=== PATIENT | male | born 1945 | race Caucasian/White ===

== ENCOUNTER 2018-11-07 09:43 | Inpatient (IN) ==
[2018-11-07] MEDS ORDERED: SODIUM CHLORIDE 0.9% 1000ML 1,000 ML IV ONE ×2 (09:56→10:52)
[2018-11-07] MEDS ORDERED: IBUPROFEN 800 MG TAB PO STA (10:02)
[2018-11-07 10:09] LABS: Hemoglobin 13.9 g/dL (14.0-18.0); Immature Granulocytes # (auto) 0.04 K/uL (0.00-0.02); Immature Granulocytes % (auto) 0.4 %; Lymphocytes % (auto) 10.6 %; Mean Corpuscular Hemoglobin 31.8 pg (25-34); Mean Corpuscular Hgb Conc 34.8 g/dL (32-36); Mean Corpuscular Volume 91.5 fL (80-100); Mean Platelet Volume 10.4 fL (7.4-10.4); Monocytes # (auto) 0.73 K/uL (0.11-0.59); Monocytes % (auto) 6.4 %; Neutrophils # (auto) 9.35 K/uL (1.4-6.5); Neutrophils % (auto) 82.6 %; Platelet Count 284 K/uL (130-400); RDW Coefficient of Variation 13.7 % (11.5-14.5); RDW Standard Deviation 45.4 fL (36.4-46.3); Red Blood Count 4.37 M/uL (4.7-6.1); White Blood Count 11.32 K/uL (4.8-10.8)
[2018-11-07 10:16] LABS: INR 1.1 (0.9-1.1); Partial Thromboplastin Ratio 0.9; Partial Thromboplastin Time 24.5 Seconds (21.0-31.0); Prothrombin Time 10.8 Seconds (9.0-12.0)
--- NOTE | 2018-11-07 10:17 | Emergency Department Note ---
Entered by Tianna Benavides acting as a scribe for Patricio Toledo DO History of Present Illness General Chief complaint: Hip Pain Time Seen by Provider: 11/07/18 09:48 Source: patient and family Limitations: no limitations History of Present Illness Provider complaint: Hip pain Onset (ago): day(s) 5 Location: hip Severity: severe Pain Consistency: + constant Quality: + constant Associated symptoms: + fever/chills and + other (Positive: right hip pain, shakiness, frequency urinating, unable to control bowel movement. Negative: rash, back pain); no nausea/vomiting The patient is a 73 year old male with past medical history of DM, UTI, HTN, kidney stones, who presents to the ED with complaints of constant severe right hip pain that started 5 days ago. The patient reports he woke up this morning shaking and had chills and fever. He notes his pain was achy on Thursday but progressively worsened. 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 She notes they called the doctor on Thursday and did an x-ray that came back normal. The states the patient was given prednisone and has been taking it along with Tylenol. She reports the patient has been urinating more frequently recently and is unable to control his bowel movements. The patient denies nausea, vomiting, rash, or back pain. Home Medications Home Medications Medication Instructions Recorded Confirmed Type cyanocobalamin (vitamin B-12) 1,000 mcg PO DAILY #0 tab 03/20/14 11/07/18 History [Vitamin B-12] docusate sodium [Colace] 100 mg PO BID #0 cap 03/20/14 11/07/18 History glipizide 10 mg PO BID #180 03/20/14 11/07/18 History acetaminophen [Tylenol] 325 mg PO Q6H PRN 11/07/18 11/07/18 History aspirin [Aspirin Low Dose] 81 mg PO DAILY 11/07/18 11/07/18 History lisinopril 20 mg PO DAILY 11/07/18 11/07/18 History metformin 1,000 mg PO BIDM 11/07/18 11/07/18 History metformin 500 mg PO 1200 11/07/18 11/07/18 History prednisone 20 mg PO UD 11/07/18 11/07/18 History Allergies Allergy/AdvReac Type Severity Reaction Status Date / Time No Known Allergies Allergy Unverified 11/07/18 10:25 Past Med/Surg History Medical History NPDR (nonproliferative diabetic retinopathy) (Chronic) Diabetes mellitus, type II (Chronic) Kidney stones (Chronic) Hypertension (Chronic) B12 deficiency (Chronic) Urinary tract infection (Resolved) Surgical History History of lithotripsy (Chronic) Family History Father Coronary heart disease, Onset Age: 74 Mother Dementia CHF (congestive heart failure) Social History Preferred Language: Serbian Communication Ability: Effective Insurance And Benefits Clerk Required: No Beliefs That Will Affect Care: None Current Living Situation: Spouse Other Information That Helps Us Care for You: No Feels Safe at Home: Yes Safety Concerns: Feels Safe At This Time Smoking Status: Former smoker Tobacco Type: cigarettes ; Do You Dip or Chew Tobacco: No ; Smoking End Date: during college ; Second Hand Exposure: No ; Tobacco Cessation Education Requested by Patient: No Hx Alcohol Use: Yes Alcohol type: hard liquor Alcohol Intake Frequency: Daily Alcohol Intake Frequency Comment: 2-4 oz bourbon daily Hx Substance Use: No Review of Systems See HPI for pertinent positives & negatives. and A total of 10 systems reviewed and were otherwise negative Physical Exam Vital Signs Vital Signs - 24 hr 11/07/18 09:53 11/07/18 09:54 11/07/18 09:55 Temperature 39.6 C H Temperature Source Oral Sepsis Recent Fever Within 48 Hours Yes Sepsis New/Unexplained Change in Mental Status No Sepsis Action Taken by Nursing MD Previously Notified Pulse Rate 128 H 135 H 132 H Pulse Rate from SpO2 Sensor 129 H 134 H Pulse Rhythm Regular Pulse Strength Normal Respiratory Rate 22 27 H 29 H Respiratory Effort / Characteristics Non-Labored Spontaneous Respiratory Depth Normal Respiratory Pattern Tachypnea Blood Pressure 141/97 H 167/91 H 141/97 H Blood Pressure Mean 111 116 111 Blood Pressure Position Lying Pulse Oximetry 93 94 93 Oxygen Delivery Method Room Air Room Air Room Air Oxygen Flow Rate 11/07/18 09:56 11/07/18 10:00 11/07/18 10:15 Temperature Temperature Source Sepsis Recent Fever Within 48 Hours Sepsis New/Unexplained Change in Mental Status Sepsis Action Taken by Nursing Pulse Rate 132 H 131 H Pulse Rate from SpO2 Sensor 131 H 136 H Pulse Rhythm Pulse Strength Respiratory Rate 23 23 Respiratory Effort / Characteristics Respiratory Depth Respiratory Pattern Blood Pressure Blood Pressure Mean Blood Pressure Position Pulse Oximetry 93 95 92 Oxygen Delivery Method Room Air Room Air Room Air Oxygen Flow Rate 11/07/18 10:30 11/07/18 10:56 11/07/18 10:58 Temperature Temperature Source Sepsis Recent Fever Within 48 Hours Sepsis New/Unexplained Change in Mental Status Sepsis Action Taken by Nursing Pulse Rate 131 H 134 H 134 H Pulse Rate from SpO2 Sensor 133 H 135 H 133 H Pulse Rhythm Pulse Strength Respiratory Rate 20 24 27 H Respiratory Effort / Characteristics Respiratory Depth Respiratory Pattern Blood Pressure Blood Pressure Mean Blood Pressure Position Pulse Oximetry 91 92 93 Oxygen Delivery Method Room Air Room Air Room Air Oxygen Flow Rate 11/07/18 11:00 11/07/18 11:09 11/07/18 11:15 Temperature 39.3 C H Temperature Source Oral Sepsis Recent Fever Within 48 Hours Sepsis New/Unexplained Change in Mental Status Sepsis Action Taken by Nursing Pulse Rate 135 H 132 H 128 H Pulse Rate from SpO2 Sensor 137 H 133 H 128 H Pulse Rhythm Pulse Strength Respiratory Rate 25 H 27 H 29 H Respiratory Effort / Characteristics Respiratory Depth Respiratory Pattern Blood Pressure 148/73 H 152/79 H Blood Pressure Mean 98 103 Blood Pressure Position Pulse Oximetry 95 91 90 Oxygen Delivery Method Room Air Room Air Room Air Oxygen Flow Rate 11/07/18 11:30 11/07/18 11:45 11/07/18 12:00 Temperature Temperature Source Sepsis Recent Fever Within 48 Hours Sepsis New/Unexplained Change in Mental Status Sepsis Action Taken by Nursing Pulse Rate 124 H 126 H 125 H Pulse Rate from SpO2 Sensor 124 H 127 H 110 H Pulse Rhythm Pulse Strength Respiratory Rate 27 H 31 H 23 Respiratory Effort / Characteristics Respiratory Depth Respiratory Pattern Blood Pressure 127/63 135/78 120/77 Blood Pressure Mean 84 97 91 Blood Pressure Position Pulse Oximetry 93 91 93 Oxygen Delivery Method Nasal Cannula Nasal Cannula Nasal Cannula Oxygen Flow Rate 2 2 2 11/07/18 12:15 11/07/18 12:30 11/07/18 12:45 Temperature 38.9 C H Temperature Source Oral Sepsis Recent Fever Within 48 Hours Sepsis New/Unexplained Change in Mental Status Sepsis Action Taken by Nursing Pulse Rate 122 H 121 H Pulse Rate from SpO2 Sensor 122 H 122 H Pulse Rhythm Pulse Strength Respiratory Rate 20 16 Respiratory Effort / Characteristics Spontaneous Short of Breath SOB on Exertion Respiratory Depth Normal Respiratory Pattern Regular Tachypnea Blood Pressure 119/70 108/69 Blood Pressure Mean 86 82 Blood Pressure Position Pulse Oximetry 92 90 Oxygen Delivery Method Nasal Cannula Nasal Cannula Oxygen Flow Rate 2 2 11/07/18 13:00 11/07/18 13:15 11/07/18 13:27 Temperature Temperature Source Sepsis Recent Fever Within 48 Hours Sepsis New/Unexplained Change in Mental Status Sepsis Action Taken by Nursing Pulse Rate 119 H 116 H 120 H Pulse Rate from SpO2 Sensor 119 H 116 H 119 H Pulse Rhythm Pulse Strength Respiratory Rate 31 H 21 19 Respiratory Effort / Characteristics Respiratory Depth Respiratory Pattern Blood Pressure 110/53 L 128/75 106/68 Blood Pressure Mean 72 92 80 Blood Pressure Position Pulse Oximetry 95 90 93 Oxygen Delivery Method Oxygen Flow Rate 11/07/18 13:37 Temperature 37.6 C H Temperature Source Oral Sepsis Recent Fever Within 48 Hours Sepsis New/Unexplained Change in Mental Status Sepsis Action Taken by Nursing Pulse Rate Pulse Rate from SpO2 Sensor Pulse Rhythm Pulse Strength Respiratory Rate Respiratory Effort / Characteristics Respiratory Depth Respiratory Pattern Blood Pressure Blood Pressure Mean Blood Pressure Position Pulse Oximetry Oxygen Delivery Method Oxygen Flow Rate GENERAL: The patient is awake and alert. He is somewhat anxious appearing. He is currently showing signs of rigors. EYES: The conjunctivae are clear. The pupils are round and reactive. EARS, NOSE, MOUTH AND THROAT: The nose is without any evidence of any deformity. Mucous membranes are moist tongue is midline NECK: The neck is nontender and supple. RESPIRATORY: Tachypnea was noted. There was no conversational dyspnea. Diminished breath sounds are noted throughout. CARDIOVASCULAR: Tachycardic rate with regular rhythm was noted. There is no definite murmur. GASTROINTESTINAL: The abdomen was soft and mildly distended. There was lower abdominal tenderness to palpation but no guarding or rigidity. BACK: No midline tenderness or or step-off noted range of motion in flexion extension as well as rotation no signs of muscle spasm noted MUSCULOSKELETAL/EXTREMITIES: There is no deformity in either lower extremity. There is no warmth or erythema over the right hip her right buttocks. There was significant pain with range of motion testing of the right hip. SKIN: There is no obvious evidence of any rash. Skin is warm and dry. Pedal edema was noted bilaterally. NEUROLOGIC: Patient is awake alert and oriented x3. Course 0948: The patient was evaluated in room A4B. A complete history and physical exam was performed. 1135: Upon reevaluation, the patient is resting comfortably. I discussed laboratory and radiographic results with him and the family. The patient verbalized agreement of the treatment plan. The patient will be evaluated for further management and care. 1137: I discussed the patient's case with Ladan Parikh PA-C . [facility]. Consultations Consultation #1: I discussed the patient's case with Ladan Parikh PA-C . The patient will be evaluated by Dr. Rosales, [facility], for further management. Time: 11:37 Administered Medications Ioversol (Optiray 320 100ml) 94 ml IV ONCE PRN PRN Reason: Interaction Checking Stop: 11/11/18 11:11 Last Admin: 11/07/18 11:13 Dose: 94 ml Documented by: [id number] Discontinued Medications Sodium Chloride (Nss 1000ml) 1,000 mls @ 999 mls/hr IV .Q1H1M ONE Stop: 11/07/18 10:56 Last Infusion: 11/07/18 11:07 Dose: 0 mls/hr Documented by: [id number] Admin: 11/07/18 10:10 Dose: 999 mls/hr Documented by: [id number] Ceftriaxone Sodium (Rocephin) 2,000 mg in 70 mls @ 140 mls/hr IV NOW STA Stop: 11/07/18 11:19 Last Infusion: 11/07/18 13:13 Dose: 0 mls/hr Documented by: [id number] Admin: 11/07/18 11:06 Dose: 140 mls/hr Documented by: [id number] Sodium Chloride (Nss 1000ml) 1,000 mls @ 999 mls/hr IV .Q1H1M ONE Stop: 11/07/18 11:52 Last Infusion: 11/07/18 13:13 Dose: 0 mls/hr Documented by: [id number] Admin: 11/07/18 11:07 Dose: 999 mls/hr Documented by: [id number] Daptomycin 600 mg/ Syringe 12 mls @ 6 mls/min IV NOW ONE; Protocol Stop: 11/07/18 13:11 Last Admin: 11/07/18 13:28 Dose: 6 mls/min Documented by: [id number] Ibuprofen (Motrin) 800 mg PO NOW STA Stop: 11/07/18 10:03 Last Admin: 11/07/18 11:07 Dose: 800 mg Documented by: [id number] Medical Decision Making Differential Diagnosis Differential diagnosis: Etiologies such as viral syndrome, otitis, pharyngitis, pneumonia, influenza, meningitis, urinary tract infection, sepsis, bacteremia, as well as others were entertained. Medical Records Attestation: I reviewed the patient's medical records. Home Medications Current Medication List: was personally reviewed by me Laboratory Data Attestation: I reviewed the patient's lab results. Result diagrams: 11/07/18 09:48 11/07/18 09:48 Lab Results 11/07/18 11/07/18 11/07/18 Range/Units 09:48 09:48 09:48 WBC 11.32 H (4.8-10.8) K/uL RBC 4.37 L (4.7-6.1) M/uL Hgb 13.9 L (14.0-18.0) g/dL POC Hgb (14.0-18.0) g/dl Hct 40.0 L (42-52) % POC Hct (42-52) % MCV 91.5 (80-100) fL MCH 31.8 (25-34) pg MCHC 34.8 (32-36) g/dL RDW Std Deviation 45.4 (36.4-46.3) fL RDW Coeff of Edilia 13.7 (11.5-14.5) % Plt Count 284 (130-400) K/uL MPV 10.4 (7.4-10.4) fL Immature Gran % (Auto) 0.4 % Neut % (Auto) 82.6 % Lymph % (Auto) 10.6 % [place] % (Auto) 6.4 % Eos % (Auto) 0.0 % Baso % (Auto) 0.0 % Immature Gran # (Auto) 0.04 H (0.00-0.02) K/uL Neut # (Auto) 9.35 H (1.4-6.5) K/uL Lymph # (Auto) 1.20 (1.2-3.4) K/uL [place] # (Auto) 0.73 H (0.11-0.59) K/uL Eos # (Auto) 0.00 (0-0.5) K/uL Baso # (Auto) 0.00 (0-0.2) K/uL ESR (0-14) mm/hr PT 10.8 (9.0-12.0) Seconds INR 1.1 (0.9-1.1) APTT 24.5 (21.0-31.0) Seconds PTT Ratio 0.9 POC Sodium (135-144) mEq/L Sodium 133 L (136-145) mmol/L POC Potassium (3.3-5.0) mEq/L Potassium 4.0 (3.5-5.1) mmol/L POC Chloride (101-112) mEq/L Chloride 101 (98-107) mmol/L Carbon Dioxide 20 L (21-32) mmol/L POC Total CO2 (24-31) mEq/l Anion Gap 12.0 H (3-11) POC Anion Gap (16-25) mmol/L POC BUN (7-18) mg/dl BUN 28 H (7-18) mg/dl Creatinine 1.49 H (0.6-1.4) mg/dl POC Creatinine (0.6-1.3) mg/dl Est Cr Clr Drug Dosing 61.4 ml/min Est GFR ( Amer) 53.2 Est GFR (Non-Af Amer) 45.9 BUN/Creatinine Ratio 18.6 (10-20) Glucose 322 H* (70-99) mg/dl POC Glucose (other) (70-99) mg/dl POC Lactic Acid Hossein (0.90-1.70) mmol/L Lactate (0.4-2.0) mmol/L Calcium 9.8 (8.5-10.1) mg/dl POC Ioniz Calcium Shikha (1.12-1.32) mmol/l Magnesium 1.7 L (1.8-2.4) mg/dl Total Bilirubin 1.1 H (0.2-1) mg/dl AST 19 (15-37) U/L ALT 37 (12-78) U/L Alkaline Phosphatase 69 (45-117) U/L Troponin I < 0.015 (0-0.045) ng/ml C-Reactive Protein 8.46 H (0-0.29) mg/dl Total Protein 9.7 H (6.4-8.2) gm/dl Albumin 3.2 L (3.4-5.0) gm/dl Globulin 6.5 H (2.5-4.0) gm/dl Albumin/Globulin Ratio 0.5 L (0.9-2) Lipase 116 (73-393) U/L Beta-Hydroxybutyric Acd 4.05 H (0.2-2.81) mg/dl Procalcitonin (0-0.5) ng/ml Urine Color Urine Appearance (Clear) Urine pH (4.5-7.5) Ur Specific Burr (1.000-1.030) Urine Protein (Negative) Urine Glucose (UA) (Negative) Urine Ketones (Negative) Urine Blood (Negative) Urine Nitrite (Negative) Urine Bilirubin (Negative) Urine Urobilinogen (Negative) Ur Leukocyte Esterase (Negative) Urine WBC (Auto) (0-5) /hpf Urine RBC (Auto) (0-4) /hpf U Hyaline Cast (Auto) (0-5) /lpf U Epithel Cells (Auto) (0-5) /lpf Urine Bacteria (Auto) (Negative) Lyme Disease IgG Ab (Negative) Lyme Disease IgM Ab (Negative) 11/07/18 11/07/18 11/07/18 Range/Units 09:48 09:48 10:06 WBC (4.8-10.8) K/uL RBC (4.7-6.1) M/uL Hgb (14.0-18.0) g/dL POC Hgb (14.0-18.0) g/dl Hct (42-52) % POC Hct (42-52) % MCV (80-100) fL MCH (25-34) pg MCHC (32-36) g/dL RDW Std Deviation (36.4-46.3) fL RDW Coeff of Edilia (11.5-14.5) % Plt Count (130-400) K/uL MPV (7.4-10.4) fL Immature Gran % (Auto) % Neut % (Auto) % Lymph % (Auto) % [place] % (Auto) % Eos % (Auto) % Baso % (Auto) % Immature Gran # (Auto) (0.00-0.02) K/uL Neut # (Auto) (1.4-6.5) K/uL Lymph # (Auto) (1.2-3.4) K/uL [place] # (Auto) (0.11-0.59) K/uL Eos # (Auto) (0-0.5) K/uL Baso # (Auto) (0-0.2) K/uL ESR > 90 H (0-14) mm/hr PT (9.0-12.0) Seconds INR (0.9-1.1) APTT (21.0-31.0) Seconds PTT Ratio POC Sodium (135-144) mEq/L Sodium (136-145) mmol/L POC Potassium (3.3-5.0) mEq/L Potassium (3.5-5.1) mmol/L POC Chloride (101-112) mEq/L Chloride (98-107) mmol/L Carbon Dioxide (21-32) mmol/L POC Total CO2 (24-31) mEq/l Anion Gap (3-11) POC Anion Gap (16-25) mmol/L POC BUN (7-18) mg/dl BUN (7-18) mg/dl Creatinine (0.6-1.4) mg/dl POC Creatinine (0.6-1.3) mg/dl Est Cr Clr Drug Dosing ml/min Est GFR ( Amer) Est GFR (Non-Af Amer) BUN/Creatinine Ratio (10-20) Glucose (70-99) mg/dl POC Glucose (other) (70-99) mg/dl POC Lactic Acid Hossein 3.54 H (0.90-1.70) mmol/L Lactate (0.4-2.0) mmol/L Calcium (8.5-10.1) mg/dl POC Ioniz Calcium Shikha (1.12-1.32) mmol/l Magnesium (1.8-2.4) mg/dl Total Bilirubin (0.2-1) mg/dl AST (15-37) U/L ALT (12-78) U/L Alkaline Phosphatase (45-117) U/L Troponin I (0-0.045) ng/ml C-Reactive Protein (0-0.29) mg/dl Total Protein (6.4-8.2) gm/dl Albumin (3.4-5.0) gm/dl Globulin (2.5-4.0) gm/dl Albumin/Globulin Ratio (0.9-2) Lipase (73-393) U/L Beta-Hydroxybutyric Acd (0.2-2.81) mg/dl Procalcitonin 0.34 (0-0.5) ng/ml Urine Color Urine Appearance (Clear) Urine pH (4.5-7.5) Ur Specific Burr (1.000-1.030) Urine Protein (Negative) Urine Glucose (UA) (Negative) Urine Ketones (Negative) Urine Blood (Negative) Urine Nitrite (Negative) Urine Bilirubin (Negative) Urine Urobilinogen (Negative) Ur Leukocyte Esterase (Negative) Urine WBC (Auto) (0-5) /hpf Urine RBC (Auto) (0-4) /hpf U Hyaline Cast (Auto) (0-5) /lpf U Epithel Cells (Auto) (0-5) /lpf Urine Bacteria (Auto) (Negative) Lyme Disease IgG Ab Negative (Negative) Lyme Disease IgM Ab Negative (Negative) 11/07/18 11/07/18 11/07/18 Range/Units 10:12 10:30 13:06 WBC (4.8-10.8) K/uL RBC (4.7-6.1) M/uL Hgb (14.0-18.0) g/dL POC Hgb 13.3 L (14.0-18.0) g/dl Hct (42-52) % POC Hct 39 L (42-52) % MCV (80-100) fL MCH (25-34) pg MCHC (32-36) g/dL RDW Std Deviation (36.4-46.3) fL RDW Coeff of Edilia (11.5-14.5) % Plt Count (130-400) K/uL MPV (7.4-10.4) fL Immature Gran % (Auto) % Neut % (Auto) % Lymph % (Auto) % [place] % (Auto) % Eos % (Auto) % Baso % (Auto) % Immature Gran # (Auto) (0.00-0.02) K/uL Neut # (Auto) (1.4-6.5) K/uL Lymph # (Auto) (1.2-3.4) K/uL [place] # (Auto) (0.11-0.59) K/uL Eos # (Auto) (0-0.5) K/uL Baso # (Auto) (0-0.2) K/uL ESR (0-14) mm/hr PT (9.0-12.0) Seconds INR (0.9-1.1) APTT (21.0-31.0) Seconds PTT Ratio POC Sodium 137 (135-144) mEq/L Sodium (136-145) mmol/L POC Potassium 4.2 (3.3-5.0) mEq/L Potassium (3.5-5.1) mmol/L POC Chloride 102 (101-112) mEq/L Chloride (98-107) mmol/L Carbon Dioxide (21-32) mmol/L POC Total CO2 20 L (24-31) mEq/l Anion Gap (3-11) POC Anion Gap 20.0 (16-25) mmol/L POC BUN 25 H (7-18) mg/dl BUN (7-18) mg/dl Creatinine (0.6-1.4) mg/dl POC Creatinine 1.0 (0.6-1.3) mg/dl Est Cr Clr Drug Dosing ml/min Est GFR ( Amer) Est GFR (Non-Af Amer) BUN/Creatinine Ratio (10-20) Glucose (70-99) mg/dl POC Glucose (other) 317 H (70-99) mg/dl POC Lactic Acid Hossein (0.90-1.70) mmol/L Lactate 1.9 (0.4-2.0) mmol/L Calcium (8.5-10.1) mg/dl POC Ioniz Calcium Shikha 1.21 (1.12-1.32) mmol/l Magnesium (1.8-2.4) mg/dl Total Bilirubin (0.2-1) mg/dl AST (15-37) U/L ALT (12-78) U/L Alkaline Phosphatase (45-117) U/L Troponin I (0-0.045) ng/ml C-Reactive Protein (0-0.29) mg/dl Total Protein (6.4-8.2) gm/dl Albumin (3.4-5.0) gm/dl Globulin (2.5-4.0) gm/dl Albumin/Globulin Ratio (0.9-2) Lipase (73-393) U/L Beta-Hydroxybutyric Acd (0.2-2.81) mg/dl Procalcitonin (0-0.5) ng/ml Urine Color Yellow Urine Appearance Clear (Clear) Urine pH 5.0 (4.5-7.5) Ur Specific Burr 1.030 (1.000-1.030) Urine Protein 1+ H (Negative) Urine Glucose (UA) 3+ H (Negative) Urine Ketones Trace H (Negative) Urine Blood 1+ H (Negative) Urine Nitrite Negative (Negative) Urine Bilirubin Negative (Negative) Urine Urobilinogen Negative (Negative) Ur Leukocyte Esterase Negative (Negative) Urine WBC (Auto) 1-5 (0-5) /hpf Urine RBC (Auto) 0-4 (0-4) /hpf U Hyaline Cast (Auto) 0 (0-5) /lpf U Epithel Cells (Auto) 0-5 (0-5) /lpf Urine Bacteria (Auto) Negative (Negative) Lyme Disease IgG Ab (Negative) Lyme Disease IgM Ab (Negative) Imaging Data Radiologist's Impression: Radiology results as stated below per my review and the radiologist's interpretation: CT abd pelvis IV con only CLINICAL HISTORY: 73 years-old Male presenting with fever, right leg pain, right hip pain, generalized abdominal pain. TECHNIQUE: Multidetector CT of the abdomen and pelvis was performed after the ad ministration of intravenous contrast. IV contrast: 94 mL of Optiray 320. One or more dose lowering techniques were used consistent with the principles of ALARA (as low as reasonably achievable), including automatic exposure control, mA or kV adjustment to individual patient size, and/or use of iterative reconstruction. COMPARISON: 03/17/2014. CT DOSE (mGy.cm): The estimated cumulative dose is 1625.49. 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 Lung bases: Mild multichamber enlargement of the heart. Coronary artery and aortic valve calcification. No pericardial or pleural effusion. Extensive b andlike opacities in the lungs with a dependent predominance likely atelectasis. Liver: Normal morphology. No liver lesion. Patent hepatic vasculature. Biliary: No intrahepatic or extrahepatic biliary ductal dilatation. Gallbladder contains gallstones. Pancreas: Mild parenchymal atrophy. Spleen: Normal. Adrenal glands: Normal. Kidneys and ureters: Moderate bilateral perinephric fat stranding. Normal. No hydronephrosis. Bladder: Normal. Pelvic organs: Prostate enlargement likely secondary to benign prostatic hyperplasia. Bowel: Normal appendix. No bowel obstruction. Peritoneal cavity: No free fluid or intraperitoneal gas. Lymph nodes: Multiple prominent retroperitoneal and pelvic lymph nodes, nonspecific and largely subcentimeter in short axis though few left. Aortic lymph nodes measure up to 11 mm. Vasculature: Atherosclerosis of the normal caliber abdominal aorta. IVC patent. Abdominal wall: Fat-containing bilateral inguinal hernias. Gynecomastia also noted. Musculoskeletal: Degenerative changes of the spine. Several old rib fractures noted. Severe compression fracture of T11. Moderate compression fracture of L4. IMPRESSION: 1. No acute intra-abdominal pathology. No CT explanation for the patient's fever within the abdomen or pelvis. 2. Severe compression fracture of T11 new from prior. Moderate compression fracture of L4 as on prior. 3. Cholelithiasis. Electronically signed by: Brandon Nettles M.D. 11/07/2018 11:[address] femur RT w con CLINICAL HISTORY: 73 years-old Male presenting with fever, right hip and right leg pain. TECHNIQUE: Multidetector CT of the right femur was performed after the administration of intravenous contrast. IV contrast: 94 mL of Optiray 320. One or more dose lowering techniques were used consistent with the principles of ALARA (as low as reasonably achievable), including automatic exposure control, mA or kV adjustment to individual patient size, and/or use of iterative rec onstruction. COMPARISON: Plain radiograph from 11/05/2018. CT DOSE (mGy.cm): The estimated cumulative dose is 1625.49 mGy.cm. 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 Right hip joint and right knee joint congruent. No acute fracture. No malalignment. Mild osteophytosis at the hip joint may be present. Mild multicompartment osteophytosis at the knee joint. Subchondral cystic change noted at the superior acetabulum. The bony pelvis is intact within the visualized portion. Right sacroiliac joint congruent. Trace knee joint effusion.. Musculature of the right thigh is normal. No intramuscular hematoma. No collection. Atherosclerosis. Grossly patent vasculature. A right hydrocele may be present versus spermatocele. Remaining intrapelvic contents demonstrate an enlarged prostate and a circumferential bladder wall thickening. Small fat- containing right inguinal hernia. IMPRESSION: 1. No evidence of acute osseous injury or acute pathology in the right thigh. 2. Mild degenerative changes of the right hip and right knee. 3. Prostatomegaly with chronic bladder outlet obstruction. 4. Suspected right hydrocele or spermatocele. Electronically signed by: Brandon Nettles M.D. 11/07/2018 11:28 AM XR chest 1V portable CLINICAL HISTORY: 73 years-old Male presenting with Sepsis. TECHNIQUE: Portable upright AP view of the chest was obtained. COMPARISON: 03/22/2014. FINDINGS: Mildly low lung volumes with prominence of the cardiac silhouette. Elevation of the right hemidiaphragm as on prior exam. Mild pulmonary vascular prominence. Chronic bandlike opacity at the right lung base. No new focal opacity. No large effusion or pneumothorax. Degenerative changes of the thoracic spine. Upper abdomen normal. IMPRESSION: 1. Low lung volumes with hypoventilatory changes and right basilar atelectasis or scarring. These are chronic findings. 2. Mild volume overload. No deisi pulmonary edema. 3. No focal infiltrate to suggest pneumonia. Electronically signed by: Brandon Nettles M.D. 11/07/2018 10:23 AM Blood Pressure Blood Pressure Findings: Elevated blood pressure Blood Pressure Disposition: elevated BP felt to be situational MDM Narrative The patient is a 73-year-old diabetic who presented to the emergency department for an evaluation. The patient was having right hip pain which he localizes over the right buttocks into the right hip. He stated that this been ongoing for some time it started to worsen over the last few days. He was seen by orthopedics and started on a steroid for the pain. The pain did not get much better but he started having shaking and fevers today. He presented to the emergency department by ambulance. He was having rigors upon arrival to the emergency department. I discussed the patient's laboratory and radiographic studies with him. He was treated with medicine for the fever as well as IV fluids. He was also started on IV antibiotics for presumed bacteremia. Michael andrew's urinalysis did not reveal a source of infection. He had significant pain with range of motion of the right hip but CT did not reveal any acute abnormality including no joint effusion. Because of the patient's findings and comorbidities I discussed his case with the on-call [facility] hospitalist group. They have agreed to evaluate the patient in the emergency department for further management disposition. Impression & Plan Fever, Hyperglycemia, Compression fx, thoracic spine, Bacteremia Discharge Plan Visit Data Chief Complaint: Hip Pain ED Provider: Patricio Toledo Discharge Problem: Fever, Hyperglycemia, Compression fx, thoracic spine, Bacteremia Patient Disposition: Being Evaluated by Hospitalist Discharge Instructions Interventions: ED Discharge Assessment Last Done: 11/07/18 13:45 Forms Stand Alone Forms: My [facility] [employer] Prescriptions Prescriptions: No Action glipizide 10 mg Tablet 10 mg PO BID Qty: 180 RF: 0 docusate sodium [Colace] 100 mg Capsule 100 mg PO BID Qty: 0 RF: 0 cyanocobalamin (vitamin B-12) [Vitamin B-12] 1,000 mcg Tablet 1,000 mcg PO DAILY Qty: 0 RF: 0 prednisone 20 mg Tablet 20 mg PO UD RF: 0 aspirin [Aspirin Low Dose] 81 mg Tablet,Delayed Release (Dr/Ec) 81 mg PO DAILY RF: 0 acetaminophen [Tylenol] 325 mg Capsule 325 mg PO Q6H PRN (Reason: Pain) RF: 0 lisinopril 20 mg tablet 20 mg PO DAILY RF: 0 metformin 1,000 mg tablet 1,000 mg PO BIDM RF: 0 metformin 1,000 mg tablet 500 mg PO 1200 RF: 0 Referrals Referrals: Brandon Dennison MD [Primary Care Provider] - Discharge Problem: Fever Qualifiers: Fever type: unspecified Qualified Code(s): R50.9 - Fever, unspecified Compression fx, thoracic spine Qualifiers: Encounter type: initial encounter Thoracic vertebra fracture level: T11 Ino lified Code(s): S22.080A - Wedge compression fracture of T11-T12 vertebra, initial encounter for closed fracture The scribe's documentation has been prepared under my direction and personally reviewed by me in its entirety. I confirm that the note above accurately reflects all work, treatment, procedures, and medical decision making performed by me.
[2018-11-07 10:24] LABS: iSTAT Hemoglobin 13.3 g/dl (14.0-18.0); iSTAT Ionized Calcium 1.21 mmol/l (1.12-1.32); iSTAT Potassium 4.2 mEq/L (3.3-5.0)
--- NOTE | 2018-11-07 10:24 | XRay Report ---
XR chest 1V portable CLINICAL HISTORY: 73 years-old Male presenting with Sepsis. TECHNIQUE: Portable upright AP view of the chest was obtained. COMPARISON: 03/22/2014. FINDINGS: Mildly low lung volumes with prominence of the cardiac silhouette. Elevation of the right hemidiaphra gm as on prior exam. Mild pulmonary vascular prominence. Chronic bandlike opacity at the right lung b ase. No new focal opacity. No large effusion or pneumothorax. Degenerative changes of the thoracic sp ine. Upper abdomen normal. IMPRESSION: 1. Low lung volumes with hypoventilatory changes and right basilar atelectasis or scarring. These ar e chronic findings. 2. Mild volume overload. No deisi pulmonary edema. 3. No focal infiltrate to suggest pneumonia. Electronically signed by: Brandon Nettles M.D. 11/07/2018 10:23 AM
[2018-11-07 10:30] LABS: Alanine Aminotransferase 37 U/L (12-78); Albumin Globulin Ratio 0.5 (0.9-2); Albumin Level 3.2 gm/dl (3.4-5.0); Alkaline Phosphatase 69 U/L (45-117); Aspartate Aminotransferase 19 U/L (15-37); BUN Creatinine Ratio 18.6 (10-20); Bilirubin,Total 1.1 mg/dl (0.2-1); Blood Urea Nitrogen 28 mg/dl (7-18); C Reactive Protein 8.46 mg/dl (0-0.29); Calcium 9.8 mg/dl (8.5-10.1); Carbon Dioxide 20 mmol/L (21-32); Chloride 101 mmol/L (98-107); Creatinine Clr Calc Pharmacy 61.4 ml/min; Est GFR (African American) 53.2; Est GFR (Non-African American) 45.9; Globulin 6.5 gm/dl (2.5-4.0); Glucose 322 mg/dl (70-99); Lipase 116 U/L (73-393); Magnesium 1.7 mg/dl (1.8-2.4); Sodium 133 mmol/L (136-145); Total Protein 9.7 gm/dl (6.4-8.2); Troponin I < 0.015 ng/ml (0-0.045)
[2018-11-07 10:50] LABS: Procalcitonin 0.34 ng/ml (0-0.5)
[2018-11-07] MEDS ORDERED: cefTRIAXone SODIUM 2,000 MG/70 ML BAG IV STA (10:50)
[2018-11-07 10:58] LABS: Appearance Urine Clear (Clear); Bacteria Urine Automated Negative (Negative); Bilirubin Urine Negative (Negative); Blood Urine 1+ (Negative); Cast Urine Automated 0 /lpf (0-5); Color Urine Yellow; Epithelial Cell Urine Auto 0-5 /lpf (0-5); Glucose Urine UA 3+ (Negative); Ketones Urine Trace (Negative); Leukocyte Esterase Urine Negative (Negative); Nitrite Urine Negative (Negative); Protein Urine 1+ (Negative); RBC Urine Automated 0-4 /hpf (0-4); Urobilinogen Urine Negative (Negative)
[2018-11-07 11:00] LABS: Beta-Hydroxybutyrate 4.05 mg/dl (0.2-2.81); Lyme Ab IgG w/WB Rflx Negative (Negative); Lyme Ab IgM w/WB Rflx Negative (Negative)
[2018-11-07] MEDS ORDERED: IOVERSOL 100ml IV PRN (11:12)
--- NOTE | 2018-11-07 11:23 | CT Scan Report ---
CT abd pelvis IV con only CLINICAL HISTORY: 73 years-old Male presenting with fever, right leg pain, right hip pain, generalize d abdominal pain. TECHNIQUE: Multidetector CT of the abdomen and pelvis was performed after the administration of intra venous contrast. IV contrast: 94 mL of Optiray 320. One or more dose lowering techniques were used co nsistent with the principles of ALARA (as low as reasonably achievable), including automatic exposure control, mA or kV adjustment to individual patient size, and/or use of iterative reconstruction. COMPARISON: 03/17/2014. CT DOSE (mGy.cm): The estimated cumulative dose is 1625.49. 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 Lung bases: Mild multichamber enlargement of the heart. Coronary artery and aortic valve calcificatio n. No pericardial or pleural effusion. Extensive bandlike opacities in the lungs with a dependent pre dominance likely atelectasis. Liver: Normal morphology. No liver lesion. Patent hepatic vasculature. Biliary: No intrahepatic or extrahepatic biliary ductal dilatation. Gallbladder contains gallstones. Pancreas: Mild parenchymal atrophy. Spleen: Normal. Adrenal glands: Normal. Kidneys and ureters: Moderate bilateral perinephric fat stranding. Normal. No hydronephrosis. Bladder: Normal. Pelvic organs: Prostate enlargement likely secondary to benign prostatic hyperplasia. Bowel: Normal appendix. No bowel obstruction. Peritoneal cavity: No free fluid or intraperitoneal gas. Lymph nodes: Multiple prominent retroperitoneal and pelvic lymph nodes, nonspecific and largely subce ntimeter in short axis though few left. Aortic lymph nodes measure up to 11 mm. Vasculature: Atherosclerosis of the normal caliber abdominal aorta. IVC patent. Abdominal wall: Fat-containing bilateral inguinal hernias. Gynecomastia also noted. Musculoskeletal: Degenerative changes of the spine. Several old rib fractures noted. Severe compressi on fracture of T11. Moderate compression fracture of L4. IMPRESSION: 1. No acute intra-abdominal pathology. No CT explanation for the patient's fever within the abdomen or pelvis. 2. Severe compression fracture of T11 new from prior. Moderate compression fracture of L4 as on prio r. 3. Cholelithiasis. Electronically signed by: Brandon Nettles M.D. 11/07/2018 11:21 AM
--- NOTE | 2018-11-07 11:29 | CT Scan Report ---
CT femur RT w con CLINICAL HISTORY: 73 years-old Male presenting with fever, right hip and right leg pain. TECHNIQUE: Multidetector CT of the right femur was performed after the administration of intravenous contrast. IV contrast: 94 mL of Optiray 320. One or more dose lowering techniques were used consisten t with the principles of ALARA (as low as reasonably achievable), including automatic exposure contro l, mA or kV adjustment to individual patient size, and/or use of iterative reconstruction. COMPARISON: Plain radiograph from 11/05/2018. CT DOSE (mGy.cm): The estimated cumulative dose is 1625.49 mGy.cm. 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 Right hip joint and right knee joint congruent. No acute fracture. No malalignment. Mild osteophytosi s at the hip joint may be present. Mild multicompartment osteophytosis at the knee joint. Subchondral cystic change noted at the superior acetabulum. The bony pelvis is intact within the visualized port ion. Right sacroiliac joint congruent. Trace knee joint effusion.. Musculature of the right thigh is normal. No intramuscular hematoma. No collection. Atherosclerosis. Grossly patent vasculature. A righ t hydrocele may be present versus spermatocele. Remaining intrapelvic contents demonstrate an enlarge d prostate and a circumferential bladder wall thickening. Small fat-containing right inguinal hernia. IMPRESSION: 1. No evidence of acute osseous injury or acute pathology in the right thigh. 2. Mild degenerative changes of the right hip and right knee. 3. Prostatomegaly with chronic bladder outlet obstruction. 4. Suspected right hydrocele or spermatocele. Electronically signed by: Brandon Nettles M.D. 11/07/2018 11:28 AM
[2018-11-07] MEDS ORDERED: MODERATE STRESS LEVEL ONE (12:55)
[2018-11-07] MEDS ORDERED: INSULIN PROTOCOL GOAL RANGE ONE (12:55)
[2018-11-07] MEDS ORDERED: LACTATED RINGER'S 1,000 ML IV SCH (13:00)
[2018-11-07] MEDS ORDERED: INSULIN REGULAR 250 UNITS in SODIUM CHLORIDE 0.9% 247.5 ML IV SCH (13:00)
[2018-11-07] MEDS ORDERED: DAPTOmycin 600 MG in SYRINGE 0 ML IV ONE (13:10)
--- NOTE | 2018-11-07 13:37 | History & Physical Report ---
Date of Service November 07, 2018 Assessment & Plan (1) Febrile illness: (2) Sepsis: (3) Lactic acidosis: (4) Metabolic acidosis: This is a 73-year-old male who has significant past medical history of T2DM, nonproductive diabetic retinopathy, history of nephrolithiasis who presents to [facility] ED after suffering mechanical fall at home. In ED patient febrile temp 39.3, tachycardic 120, blood pressure stable [id number] lactate 2.5, hyperglycemic 325, elevated ESR greater than 90, CRP 8.46, anion gap 12, elevated beta hydroxybutyric acid, wbc 11.32, mag 1.7 Initial peripheral smear concerning for bacteremia CXR w/o acute abnormality, mild volume overload Femur CT and CT abd/pelvis: Severe compression fracture of T11 new from prior. Moderate compression fracture of L4 as on prior, and noted cholelithiasis UA negative for infection In ED pt received 3L of IVF, 2g IV rocephin Blood pressure remained stable but remains tachycardic Pt meets SIRS/Sepsis Criteria with fever, tachycardia Lactic acid elevated 3.5, repeat now 1.9 received broad spectrum IV antibiotics and appropriate IVF resuscitation source: unknown at this time - concern for bacteremia, diskitis, osteomyelitis, epidural abscess, R hip joint infection, endocarditis admit to PCU Continue broad-spectrum IV antibiotics with daptomycin and ceftriaxone Consult infectious disease given above Obtain MRI of thoracic spine, lumbar spine, right hip and pelvis due to concern for etiology of sepsis to rule out epidural abscess, discitis, osteomyelitis Consult orthopedics Dr. Patel Obtain echocardiogram due to sepsis of unknown origin Blood cultures pending metabolic acidosis likely in setting of lactic acidosis and significant hyperglycemia (5) Right hip pain: plan as above MRI pending orthopedics consulted (6) Compression fx, thoracic spine: pt w/o acute complaint or pain further imaging pending vitamin d level ordered (7) Hypomagnesemia: replete with 1g mag sulfate repeat in a.m. (8) Diabetes mellitus, type II: A1C 8.4 02/2018 on metformin and glipizide as outpt hold oral meds starting Insulin gtt given BSG > 300, gap 12, beta hydroxybutric acid elevated monitor blood sugar, transition to lantus/novolog when able A1C in a.m. (9) Hypertension: hold lisinopril in setting of sepsis monitor, blood pressure currently stable (10) DVT prophylaxis: Lovenox Disposition: admit to PCU Follow up: PCP Dr. Dennison upon discharge Patient was seen and examined in collaboration with Dr. Rosales, please see addendum Starting 11/08/18 patient will be under the care of Dr. Johnson History of Present Illness Chief Complaint: Fall prior to arrival Primary Care Provider: Brandon Dennison MD This is a 73-year-old male who has significant past medical history of T2DM, nonproductive diabetic retinopathy, history of nephrolithiasis who presents to [facility] ED after suffering mechanical fall at home. Prior to arrival patient has been experiencing right hip pain, slipped and fell on right side. He was unable to get up on her own. EMS was therefore summoned. Unfortunately patient has been having significant, "right hip pain," for the past 5 days. No known trauma or injury. Pain started abruptly. Pain is located in right buttock region, constant, intensity waxes and wanes, worse with walking, improved with rest. Denies any radiation of pain or numbness or tingling to lower extremities. He denies any lightheadedness, loss of consciousness or syncope. His pain has been significantly worsening over the past 5 days, decreased ability to ambulate causing him to use walker. He feels the right outer aspect of his leg was very warm this morning and further complained of chills. He denies any documented fevers prior to arrival but does elicit to chills and sweats for the past day. Denies any lightheadedness any dizziness, headache, visual changes, hearing changes, sinus congestion, rhinorrhea, sore throat, cough, chest pain, shortness of breath, hemoptysis, emesis, abdominal pain, diarrhea, constipation, melena, hematochezia, dysuria, increased urgency with urination. Appetite has overall been diminished. He does get occasionally nauseated secondary to pain. He denies any deisi back pain. Had similar symptoms in past approximately 2 years ago when he had sciatica, but this was more located on the front of his right leg. He was seen by orthopedics Dr. Yin KOWALSKI on Thursday who took plain films without abnormality. There was concern for flare of sciatica so he was placed on prednisone taper in which he took 60 mg x 2 days. 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 No recent rashes. Did have dental cleaning 2 weeks ago. Denies IV drug use or vaping. Patient's and daughter are at bedside. Allergies Allergy/AdvReac Type Severity Reaction Status Date / Time No Known Allergies Allergy Unverified 11/07/18 10:25 Home Medications Home Medications Medication Instructions Recorded Confirmed Type cyanocobalamin (vitamin B-12) 1,000 mcg PO DAILY #0 tab 03/20/14 11/07/18 History [Vitamin B-12] docusate sodium [Colace] 100 mg PO BID #0 cap 03/20/14 11/07/18 History glipizide 10 mg PO BID #180 03/20/14 11/07/18 History acetaminophen [Tylenol] 325 mg PO Q6H PRN 11/07/18 11/07/18 History aspirin [Aspirin Low Dose] 81 mg PO DAILY 11/07/18 11/07/18 History lisinopril 20 mg PO DAILY 11/07/18 11/07/18 History metformin 1,000 mg PO BIDM 11/07/18 11/07/18 History metformin 500 mg PO 1200 11/07/18 11/07/18 History prednisone 20 mg PO UD 11/07/18 11/07/18 History Past Med/Surg History Medical History NPDR (nonproliferative diabetic retinopathy) (Chronic) Diabetes mellitus, type II (Chronic) Kidney stones (Chronic) Hypertension (Chronic) B12 deficiency (Chronic) Urinary tract infection (Resolved) Surgical History History of lithotripsy (Chronic) Family History Father Coronary heart disease, Onset Age: 74 Mother Dementia CHF (congestive heart failure) Social History Preferred Language: Sami Communication Ability: Effective Supervisor Quilting Required: No Beliefs That Will Affect Care: None Current Living Situation: Spouse Other Information That Helps Us Care for You: No Feels Safe at Home: Yes Safety Concerns: Feels Safe At This Time Smoking Status: Former smoker Tobacco Type: cigarettes ; Do You Dip or Chew Tobacco: No ; Smoking End Date: during college ; Second Hand Exposure: No ; Tobacco Cessation Education Requested by Patient: No Hx Alcohol Use: Yes Alcohol type: hard liquor Alcohol Intake Frequency: Daily Alcohol Intake Frequency Comment: 2-4 oz bourbon daily Hx Substance Use: No Review of Systems Review of Systems: All systems reviewed & are unremarkable except as noted in HPI & below Physical Exam Physical Exam: Constitutional: WD/WN, Tall, Male, appears ill, vitals as above, NAD, sitting up in bed, pleasant, conversing easily Head: Normocephalic, Atraumatic Eyes: PERRL, conjunctivae normal, anicteric sclerae ENMT: external ear and nose normal, oropharynx normal Neck: trachea midline, no thyromegaly normal visual inspection Respiratory: normal respiratory effort, lungs clear to auscultation, no wheeze, rales, rhonchi. Normal insp/exp effort, no accessory muscle use Cardiovascular: tachycardic rate, regular rhythm, no edema Vessels: no JVD or carotid bruit Chest: normal inspection of chest Abdomen: normal bowel sounds, soft, nontender, no hepatosplenomegaly Musculoskeletal: AROM/PROM to upper and LLE, strength 5/5. RLE decrease AROM with hip flexion/ext, knee flexion/extension due to pain. Good muscle tone, no spasticity, reflex +2, no cyanosis or clubbing, Skin: no rashes, warm, normal turgor Neurologic: PERRL, EOMI, accommodation nl, no face palsy, no dysarthria CN's II-XI intact bilaterally and moves all extremities Psychiatric: A+Ox3, euthymic affect Lymphatic: no cervical or axillary lymphadenopathy : deferred Results & Data Vital Signs (Past 12 Hours) Vital Signs Temp Pulse Resp BP Pulse Ox 11/07/18 12:15 122 H 20 119/70 92 11/07/18 12:00 125 H 23 120/77 93 11/07/18 11:45 126 H 31 H 135/78 91 11/07/18 11:30 124 H 27 H 127/63 93 11/07/18 11:15 128 H 29 H 152/79 H 90 11/07/18 11:09 39.3 C H 132 H 27 H 148/73 H 91 11/07/18 11:00 135 H 25 H 95 09/22/19 10:58 134 H 27 H 93 11/07/18 10:56 134 H 24 92 11/07/18 10:30 131 H 20 91 11/07/18 10:15 131 H 23 92 11/07/18 10:00 132 H 23 95 11/07/18 09:56 93 11/07/18 09:55 39.6 C H 132 H 29 H 141/97 H 93 11/07/18 09:54 135 H 27 H 167/91 H 94 11/07/18 09:53 128 H 22 141/97 H 93 Laboratory Results Short CBC 11/07/18 11/07/18 Range/Units 09:48 09:48 WBC 11.32 H (4.8-10.8) K/uL Hgb 13.9 L (14.0-18.0) g/dL Hct 40.0 L (42-52) % Plt Count 284 (130-400) K/uL Glucose 322 H* (70-99) mg/dl BMP 11/07/18 09:48 Sodium 133 L Potassium 4.0 Chloride 101 Carbon Dioxide 20 L BUN 28 H Creatinine 1.49 H Glucose 322 H* Calcium 9.8 Cardiac Enzymes 11/07/18 Range/Units 09:48 Troponin I < 0.015 (0-0.045) ng/ml Liver Function 11/07/18 Range/Units 09:48 Total Bilirubin 1.1 H (0.2-1) mg/dl AST 19 (15-37) U/L ALT 37 (12-78) U/L Alkaline Phosphatase 69 (45-117) U/L Albumin 3.2 L (3.4-5.0) gm/dl Urine 11/07/18 Range/Units 10:30 Urine Color Yellow Urine Appearance Clear (Clear) Urine pH 5.0 (4.5-7.5) Ur Specific Rochelle 1.030 (1.000-1.030) Urine Protein 1+ H (Negative) Urine Glucose (UA) 3+ H (Negative) Diagnostic Findings Femur CT: IMPRESSION: 1. No evidence of acute osseous injury or acute pathology in the right thigh. 2. Mild degenerative changes of the right hip and right knee. 3. Prostatomegaly with chronic bladder outlet obstruction. 4. Suspected right hydrocele or spermatocele. CXR: IMPRESSION: 1. Low lung volumes with hypoventilatory changes and right basilar atelectasis or scarring. These are chronic findings. 2. Mild volume overload. No deisi pulmonary edema. 3. No focal infiltrate to suggest pneumonia. Abd/Pelvis: IMPRESSION: 1. No acute intra-abdominal pathology. No CT explanation for the patient's fever within the abdomen or pelvis. 2. Severe compression fracture of T11 new from prior. Moderate compression fracture of L4 as on prior. 3. Cholelithiasis. Medications Administered Ioversol (Optiray 320 100ml) 94 ml IV ONCE PRN PRN Reason: Interaction Checking Stop: 11/11/18 11:11 Last Admin: 11/07/18 11:13 Dose: 94 ml Documented by: [id number] Discontinued Medications Sodium Chloride (Nss 1000ml) 1,000 mls @ 999 mls/hr IV .Q1H1M ONE Stop: 11/07/18 10:56 Last Infusion: 11/07/18 11:07 Dose: 0 mls/hr Documented by: [id number] Admin: 11/07/18 10:10 Dose: 999 mls/hr Documented by: [id number] Ceftriaxone Sodium (Rocephin) 2,000 mg in 70 mls @ 140 mls/hr IV NOW STA Stop: 11/07/18 11:19 Last Infusion: 11/07/18 13:13 Dose: 0 mls/hr Documented by: [id number] Admin: 11/07/18 11:06 Dose: 140 mls/hr Documented by: [id number] Sodium Chloride (Nss 1000ml) 1,000 mls @ 999 mls/hr IV .Q1H1M ONE Stop: 11/07/18 11:52 Last Infusion: 11/07/18 13:13 Dose: 0 mls/hr Documented by: [id number] Admin: 11/07/18 11:07 Dose: 999 mls/hr Documented by: [id number] Daptomycin 600 mg/ Syringe 12 mls @ 6 mls/min IV NOW ONE; Protocol Stop: 11/07/18 13:11 Last Admin: 11/07/18 13:28 Dose: 6 mls/min Documented by: [id number] Ibuprofen (Motrin) 800 mg PO NOW STA Stop: 11/07/18 10:03 Last Admin: 11/07/18 11:07 Dose: 800 mg Documented by: [id number] Code Status & VTE Plan Code Status Full Code VTE Prophylaxis Plan VTE Prophylaxis will be ordered: Yes Supervising Physician Co-Signing Physician Notes HISTORY: Record reviewed. Patient interviewed and examined in ED. Care coordinated with Latia Rodrigues PA-C. Please refer to her documentation for patient's history. Briefly, 73 YO male with history of hypertension, DM type 2, renal calculi, and other problems. Presented to ED after fall. Routine dental cleaning performed about a week and half ago. Experiencing right hip pain for past several days. Seen by Ortho. Plain films of hip showed degenerative disease. Prescribed prednisone taper which offered, perhaps, minimal improvement. The hip pain was so bad that he had to use a walker to ambulate. This morning he felt very weak and fell while ambulating with the walker. No associated chest pain, palpitations, acute dyspnea, loss of consciousness, focal neurologic symptoms. Developed fever and chills this morning. No other specific symptoms besides right hip pain. No cough, nausea, vomiting, abdominal pain, diarrhea, dysuria, hematuria. EXAM: General- appears to be acutely ill Lungs- clear to auscultation; no respiratory distress Cardiovascular- RRR; no murmur appreciated; no gallop; no JVD; no pretibial edema Abdomen- + bowel sounds, soft, nontender Extremities- no cyanosis; no calf tenderness; right hip tenderness and overlying warmth, but no erythema; right hip / buttock pain with straight leg raising Neuro- alert, oriented Skin- diaphoretic, flushed; excoriated lesions LUE DATA: Hemoglobin 13.9, white count 11,320, platelet count 284,000. Sodium 133, potassium 4.0, chloride 101, CO2 20, BUN 28, creatinine 1.49, random glucose 322. Magnesium 1.7. [id number] lactic acid 3.54. Procalcitonin 0.34. Other lab studies as noted. Chest x-ray reviewed by the undersigned and formally interpreted by Radiology: FINDINGS: Mildly low lung volumes with prominence of the cardiac silhouette. Elevation of the right hemidiaphragm as on prior exam. Mild pulmonary vascular prominence. Chronic bandlike opacity at the right lung base. No new focal opacity. No large effusion or pneumothorax. Degenerative changes of the thoracic spine. Upper abdomen normal. IMPRESSION: 1. Low lung volumes with hypoventilatory changes and right basilar atelectasis or scarring. These are chronic findings. 2. Mild volume overload. No deisi pulmonary edema. 3. No focal infiltrate to suggest pneumonia. Electronically signed by: Brandon Nettles M.D. 11/07/2018 10:23 AM Plain films of right hip performed on 11/05/2018 demonstrated mild to moderate osteoarthritis of the right hip. CT of the right femur showed mild degenerative changes of the right hip and right knee, prostatomegaly with chronic bladder outlet obstruction, suspected right hydrocele or spermatocele. CT of the abdomen pelvis showed cholelithiasis without evidence of obstruction, severe compression fracture T11 new since 03/17/2014, old compression fracture of L4, bilateral perinephric fat stranding, no hydronephrosis, no ureteral calculi. EKG performed at 1239 reviewed and demonstrated sinus tachycardia at 120/ minute, occasional PVC, wandering baseline, possible age-indeterminate inferior infarct, no acute ST or T wave abnormalities. ASSESSMENT AND PLAN: Patient meets criteria for sepsis per current CMS criteria- fever, tachycardia, tachypnea. He has been experiencing right hip pain. Consider septic arthritis. Consider epidural abscess with radicular pain. Dental work performed about 10 days prior to admission. Consider endocarditis. Patient has history of renal calculi. However, urinalysis does not show significant RBCs and no calculi was seen on CT imaging. Some perinephric stranding was noted on CT, but urinalysis negative for nitrites, leukocyte esterase, WBCs, or bacteria. Patient has several excoriated lesions on his left upper extremity from scratching; consider as possible point of entry for bacteremia. Blood cultures pending and patient received broad-spectrum antibiotic coverage with ceftriaxone. Daptomycin added for gram-positive coverage. Initial [id number] lactate was 3.45. Repeat lactate ordered. Patient received 2 L of IV normal saline in ED. Continue fluid resuscitation with lactated Ringer's. Does not require specific fluid resuscitation goal of 30 mls/kg because lactate is less than 4 and systolic blood pressures greater than 90. Check MRI of lumbar spine, pelvis, right hip. Consult Orthopedic Surgery. Check echocardiogram to assess for possible endocarditis. CT of abdomen demonstrates cholelithiasis. No apparent biliary tract obstruction per CT. LFTs normal. Doubt cholecystitis, but will check US RUQ. Diabetes mellitus type 2 managed with metformin and glipizide. Random blood sugar 322. Hypoglycemia by secondary to combination of glucocorticoids and sepsis. Initially utilize insulin infusion per protocol for glycemic control and then transition to basal / bolus per protocol. Etiology of T11 compression fraction uncertain. Patient fell earlier today, but denies any back pain. Consider infectious and metastatic etiologies. MRI ordered as discussed above. Resuscitation status discussed with the patient. He has a living will. No extraordinary measures in the setting of terminal illness or permanent coma, but he would like resuscitation attempted in the event of a cardiopulmonary arrest as well as other aggressive treatments if there is a reasonable chance of meaningful recovery. Please refer to JONY Rodrigues's documentation for discussion of other issues. (1) Compression fx, thoracic spine Encounter type: initial encounter Thoracic vertebra fracture level: T11 Qualified Code(s): S22.080A - Wedge compression fracture of T11-T12 vertebra, initial encounter for closed fracture
[2018-11-07] MEDS ORDERED: GADOBUTROL 65ML VIAL IV PRN (16:01)
--- NOTE | 2018-11-07 16:03 | Magnetic Resonance Report ---
MR thoracic spine wo/w con CLINICAL HISTORY: 73 years-old Male presenting with Sepsis, concern for diskitis, OM, right hip pain began Alyce morning worsening over the course of the week, now with fever and concern for infection . TECHNIQUE: Multisequence, multiplanar MR imaging of the thoracic spine was performed before and after the administration of intravenous contrast. IV contrast: 12.5 mL of Gadavist. COMPARISON: None. FINDINGS: Localizer images: Unremarkable. Moderate to severe compression deformity of T11. There is associated mild to moderate retropulsion of the posterior cortex of T11. Mild bony edema is present. The T10-11 and T11-12 intervertebral disc d emonstrate less dislocation than the remaining levels though there is no deisi fluid signal within th e disks. No abnormal enhancement on postcontrast imaging. Incidental note made of a benign hemangioma in T10. Slightly focal kyphosis secondary to compression deformity at T11. There may be minimal anterior vert ebral body height loss at T7. No evidence of bony edema or abnormal enhancement in this level consist ent with a chronic minimal deformity. Remaining vertebral bodies demonstrate normal height, alignment and bone marrow signal intensity. Diffuse intervertebral disc desiccation with the exception of T10- 11 and T11-12. Neural foraminal narrowing noted at T10-11, mild on the right and moderate to severe on the left. No significant narrowing at T11-12. Disc osteophyte complex at T8-9 results in mild effacement of the ventral thecal sac without contouri ng of the spinal cord. The retropulsion of T11 resulting in mild to moderate effacement of the ventra l thecal sac also results in mild flattening of the spinal cord with preserved CSF. Limited evaluatio n for abnormal spinal cord signal at this level, which is not overtly present. No abnormal enhancemen t of the spinal cord. No evidence of an epidural collection. Thoracic spinal cord otherwise maintains normal morphology. T2 flow voids preserved. Remaining soft tissues within normal limits. IMPRESSION: 1. Subacute to chronic compression fracture of T11. Findings do not suggest discitis osteomyelitis. Resulting mild to moderate spinal canal stenosis. No convincing evidence of spinal cord impingement. 2. Neural foraminal narrowing at T10-11, left greater than right. 3. Degenerative changes at T8-9. Electronically signed by: Brandon Nettles M.D. 11/07/2018 4:02 PM
--- NOTE | 2018-11-07 16:36 | Magnetic Resonance Report ---
MR lumbar spine wo/w con CLINICAL HISTORY: 73 years-old Male presenting with right hip pain worsening over the course of the w native, now with fever, concern for discitis osteomyelitis. TECHNIQUE: Multisequence, multiplanar MR imaging of the lumbar spine was performed before and after t he administration of intravenous contrast. IV contrast: 12.5 mL of Gadavist. COMPARISON: None. FINDINGS: Localizer images: Unremarkable. Normal lumbar lordosis. Mild height loss at L4 with an underlying benign hemangioma. Moderate to franko re compression fracture at T11 with trace fluid or edema, overall subacute to chronic appearing. No a cute osseous injury in the lumbar spine. Remaining vertebral body symmetry normal height, alignment, and bone marrow signal intensity. Mild diffuse intervertebral disc desiccation in the lumbar spine. T here is mild height loss at L1-2 and L2-3. Additional multilevel degenerative changes further detail below: T12-L1: No significant neural foraminal or spinal canal narrowing. L1-2: Mild facet arthropathy and trace disc bulge. Moderate right and mild left neural foraminal narr owing. No significant spinal canal narrowing. L2-3: Annular fissure suspected. Mild facet arthropathy. Trace disc bulge mildly effaces the ventral thecal sac. Moderate bilateral neural foraminal narrowing. L3-4: Mild disc bulge and significant facet arthropathy and ligamentum flavum thickening. Moderate ci rcumferential effacement of the thecal sac with trace residual CSF. Moderate to severe bilateral neur al foraminal narrowing with suspected mass effect on the bilateral exiting L3 nerve roots. L4-5: Disc bulge, advanced facet arthropathy, and ligamentum flavum thickening severely effaces the t hecal sac circumferentially. No residual CSF is appreciated. Abutment of the bilateral exiting L4 ner ve roots. Mild to moderate bilateral neural foraminal narrowing. L5-S1: Facet arthropathy and ligamentum flavum thickening. Mild disc bulge and suspected annular fiss ure. Mild effacement of the ventral thecal sac and abutment of the bilateral exiting L5 nerve roots. No paraspinal muscle edema. The spinal cord terminates in good position at the inferior endplate of T 12. No epidural collection. Postcontrast imaging demonstrates no abnormal intervertebral disc or vert ebral body enhancement. No abnormal spinal cord or cauda equina enhancement. Flow voids within the va sculature preserved. Remaining visualized soft tissues within normal limits. IMPRESSION: 1. No evidence of discitis osteomyelitis. 2. Chronic mild compression deformity of L4 and subacute to chronic severe compression deformity of T11. 3. Multilevel degenerative changes with severe spinal canal stenosis at L4-5. Correlate clinically f or cauda equina impingement. 4. Multilevel neural foraminal narrowing as above. The report will be called/faxed according to standard departmental protocol. Electronically signed by: Brandon Nettles M.D. 11/07/2018 4:34 PM
--- NOTE | 2018-11-07 16:39 | Magnetic Resonance Report ---
MR pelvis wo/w con CLINICAL HISTORY: 73 years-old Male presenting with sepsis, right hip pain worsening over one week, n ow with fever. TECHNIQUE: Multisequence, multiplanar MR imaging of the pelvis was performed before and after the adm inistration of intravenous contrast. IV contrast: 12.5 mL of Gadavist. COMPARISON: None. FINDINGS: Localizer images: Unremarkable. Edema noted in the region of the right hip involving the gluteus minimus and obturator externus. A sm all hip joint effusion is present with synovial thickening. Postcontrast imaging demonstrates signifi cant synovial enhancement as well as enhancement of the surrounding edematous musculature. No abnorma l enhancement of the bone marrow. Bone marrow signal is heterogeneous. Pelvic bone marrow is somewhat diffusely T2 hyperintense and T1 hypointense. Allowing for the diffuse degree of abnormality, the femoral heads and necks are grossly normal and bone marrow signal intensity. No fracture is apparent. Enlarged prostate. Bladder normal. Bilateral prominent subcentimeter lymph nodes and external iliac r egions likely reactive. IMPRESSION: Findings highly suspicious for right hip joint inflammatory arthritis. This could represent septic ar thritis or an aseptic reactive arthritis. No abnormal bone marrow signal intensity of the right femur or right acetabulum to raise concern for osteomyelitis. Orthopedic consultation is necessary. The report will be called/faxed according to standard departmental protocol for a critical finding.. Electronically signed by: Brandon Nettles M.D. 11/07/2018 4:38 PM
--- NOTE | 2018-11-07 16:44 | Magnetic Resonance Report ---
MR hip RT wo/w con CLINICAL HISTORY: 73 years-old Male presenting with R hip pain worsening over the week, now with feve r. TECHNIQUE: Multisequence, multiplanar MR imaging of the right hip was performed before and after the administration of intravenous contrast. IV contrast: 12.5 mL of Gadavist. COMPARISON: None. FINDINGS: Localizer images: Unremarkable. Intrapelvic contents: Prominent bilateral external iliac lymph nodes. Prostatic enlargement likely in dicating benign prostatic hyperplasia. Normal bladder. No free fluid in the pelvis. Bone marrow: Diffusely T1 hypointense and T2 hyperintense pelvic bone marrow. No focal abnormal bone marrow signal of the femoral heads or necks allowing for heterogeneity of the medullary bone. Articular cartilage: Articular cartilage preserved. Labrum: Acetabular labrum intact. No evidence of labral tear, chondrolabral separation or paralabral cyst. Bursae: No pathologic distention of the iliopsoas or trochanteric bursae. Joint effusion: Significant joint effusion within the right hip in comparison to the left. Synovial t hickening may be present. Sciatic nerve: Normal appearance of the sciatic nerve. Muscle: Surrounding muscle edema in the region of the right hip involving the gluteus minimus muscle and right obturator internus among others. Fluid also tracks along the quadriceps muscle. Superficial soft tissue: No subcutaneous edema. IMPRESSION: 1. Findings highly suspicious for inflammatory changes of the right hip, most concerning for septic arthritis given the clinical history though this could alternatively represent an aseptic reactive ar thritis. No abnormal bone marrow signal within the right femur raise concern for osteomyelitis. Ortho pedic consultation recommended. 2. Diffusely abnormal pelvic bone marrow signal could reflect underlying red marrow reconversion or lymphoproliferative disease. The report will be called/faxed according to standard departmental protocol. Electronically signed by: Brandon Nettles M.D. 11/07/2018 4:43 PM
[2018-11-07] MEDS ORDERED: DEXTROSE 50% 50 ML SYRINGE IV PRN (17:18)
[2018-11-07] MEDS ORDERED: GLUCOSE 40% GEL 15 GM TUBE PO PRN (17:18)
[2018-11-07] MEDS ORDERED: GLUCOSE 10 TABS/TUBE PO PRN (17:18)
[2018-11-07] MEDS ORDERED: LORazepam 1 MG TAB PO PRN (17:18)
[2018-11-07] MEDS ORDERED: GLUCAGON FOR INJ 1 MG VIAL SQ PRN (17:18)
[2018-11-07] MEDS ORDERED: CARBOHYDRATES FOR HYPOGLYCEMIA PO PRN (17:18)
[2018-11-07] MEDS ORDERED: ROCEPHIN: CONSULT PHARMACY PRN (17:25)
[2018-11-07] MEDS: ACETAMINOPHEN 325 MG TAB PO PRN (17:26)
[2018-11-07] MEDS ORDERED: INSULIN HUMAN REGULAR IV BOLUS 2.5 UNITS in SYRINGE 0 ML IV ONE (17:45)
[2018-11-07] MEDS ORDERED: MAGNESIUM SULFATE / D5W 1 GM/100 ML BAG IV ONE (18:00)
[2018-11-07] MEDS: INSULIN ASPART 100 UNITS/ML 3 ML PEN SC SCH ×2 (18:33→21:26)
[2018-11-07] MEDS ORDERED: HYDROmorphone INJ 0.5 MG/0.5 ML SYR IV STA (19:28)
[2018-11-07] MEDS ORDERED: HYDROmorphone INJ 0.5 MG/0.5 ML SYR IV PRN (19:28)
[2018-11-07] MEDS: DOCUSATE SODIUM 100 MG CAP PO SCH (19:38)
--- NOTE | 2018-11-07 20:25 | Orthopedic Consultation ---
Date of Consultation November 07, 2018 Assessment & Plan (1) Right hip pain: At this point is unclear whether his hip pains coming from a inflammatory arthritis or an infection in his right hip. There is not enough of an effusion or an abscess collection to warrant an aspiration at this time. I think it is best we get his sugars under control. He is currently on insulin drip. He is currently on ceftriaxone for the possible bacteremia and we are still waiting blood cultures. He is on Lovenox for DVT prophylaxis and is on Dilaudid for pain control. I did speak personally with Eriberto Moore PA-C who saw Gume on Thursday in the office. At this point were going to see how he responds to the current medical treatment and be more aggressive with his right hip if he does not improve. Present on Admission?: Yes History of Present Illness Reason for Consultation: Right hip pain Attending Physician: Federico Rosales MD History of Present Illness Gume is a pleasant 73-year-old male who is been dealing with a 5-day history of increasing right hip pain. It started on Thursday. He was having some pain in his groin and mostly in his buttock. He had to use a walker on and off. By Thursday his symptoms montelongo had worsened. He went to [facility] orthopedics and an x-ray showed very minimal arthritis of the right hip. He was having a lot of SI joint pain during that visit. He was started on a Medrol Dosepak. Unfortunately his symptoms did not improve. He came to the emergency room on Thursday and once was found to be hyperglycemic and hypertensive. A peripheral smear of his blood did grow bacteria and his lactic acid was elevated and his sed rate was greater than 90. He was diagnosed with possible sepsis. Blood cultures are still pending. He still having a lot of pain in his right buttock region as well as in his right groin. An MRI was done of his thoracic spine, his lumbar spine, and his right hip. The right hip did light up moderately suggesting an inflammatory process around the right hip. It is unclear whether is an infection or an inflammatory arthritis. I do not see a large enough effusion or any abscesses that would require an aspiration at this point. He was admitted to the hospital under the medical service and orthopedics was consulted to evaluate and treat his right hip pain. Allergies Allergy/AdvReac Type Severity Reaction Status Date / Time No Known Allergies Allergy Unverified 11/07/18 10:25 Home Medications Home Medications Medication Instructions Recorded Confirmed Type cyanocobalamin (vitamin B-12) 1,000 mcg PO DAILY #0 tab 03/20/14 11/07/18 History [Vitamin B-12] docusate sodium [Colace] 100 mg PO BID #0 cap 03/20/14 11/07/18 History glipizide 10 mg PO BID #180 03/20/14 11/07/18 History acetaminophen [Tylenol] 325 mg PO Q6H PRN 11/07/18 11/07/18 History aspirin [Aspirin Low Dose] 81 mg PO DAILY 11/07/18 11/07/18 History lisinopril 20 mg PO DAILY 11/07/18 11/07/18 History metformin 1,000 mg PO BIDM 11/07/18 11/07/18 History metformin 500 mg PO 1200 11/07/18 11/07/18 History prednisone 20 mg PO UD 11/07/18 11/07/18 History Patient History Medical History NPDR (nonproliferative diabetic retinopathy) (Chronic) Diabetes mellitus, type II (Chronic) Kidney stones (Chronic) Hypertension (Chronic) B12 deficiency (Chronic) Urinary tract infection (Resolved) Surgical History History of lithotripsy (Chronic) Family History Father Coronary heart disease, Onset Age: 74 Mother Dementia CHF (congestive heart failure) Social History Preferred Language: Nepali Communication Ability: Effective Lead Software 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 Required: No Beliefs That Will Affect Care: None Current Living Situation: Spouse Other Information That Helps Us Care for You: No Feels Safe at Home: Yes Safety Concerns: Feels Safe At This Time Smoking Status: Former smoker Tobacco Type: cigarettes ; Do You Dip or Chew Tobacco: No ; Smoking End Date: during college ; Second Hand Exposure: No ; Tobacco Cessation Education Requested by Patient: No Hx Alcohol Use: Yes Alcohol type: hard liquor Alcohol Intake Frequency: Daily Alcohol Intake Frequency Comment: 2-4 oz bourbon daily Hx Substance Use: No Review of Systems Review of Systems: All systems reviewed & are unremarkable except as noted in HPI & below Physical Exam Musculoskeletal: On physical examination of his right hip, there is no erythema or signs of infection. He has pain in the right buttock region and in the right SI joint. He has difficulty lying flat because of anterior thigh p ain. I can flex his knee to about 80 degrees before he is too much pain. I can externally rotate him about 20 degrees and internally rotated 0 degrees. He has severe pain at end ranges of motion of his hip. Most of his pain during this part of exam was in his right groin. Results & Data Vital Signs (Past 12 Hours) Vital Signs Temp Pulse Pulse Resp BP BP Pulse Ox 11/07/18 19:29 37.7 C H 111 H 22 112/64 92 11/07/18 17:00 38.6 C H 125 H 20 163/94 H 95 11/07/18 13:37 37.6 C H 11/07/18 13:27 120 H 19 106/68 93 11/07/18 13:15 116 H 21 128/75 90 11/07/18 13:00 119 H 31 H 110/53 L 95 11/07/18 12:45 38.9 C H 11/07/18 12:30 121 H 16 108/69 90 11/07/18 12:15 122 H 20 119/70 92 11/07/18 12:00 125 H 23 120/77 93 11/07/18 11:45 126 H 31 H 135/78 91 11/07/18 11:30 124 H 27 H 127/63 93 11/07/18 11:15 128 H 29 H 152/79 H 90 11/07/18 11:09 39.3 C H 132 H 27 H 148/73 H 91 11/07/18 11:00 135 H 25 H 95 11/07/18 10:58 134 H 27 H 93 11/07/18 10:56 134 H 24 92 11/07/18 10:30 131 H 20 91 11/07/18 10:15 131 H 23 92 11/07/18 10:00 132 H 23 95 11/07/18 09:56 93 11/07/18 09:55 39.6 C H 132 H 29 H 141/97 H 93 11/07/18 09:54 135 H 27 H 167/91 H 94 11/07/18 09:53 128 H 22 141/97 H 93 Diagnostic Findings X-rays reviewed of the pelvis do show mild osteoarthritis of the right hip and no arthritis of the left hip MRI of the right hip does show signs of inflammation and edema. Most of the edema is within the surrounding soft tissues. I do not see any significant effusion of the hip joint and no signs of abscess formation. I do not see any reaction within the bone no signs of osteomyelitis. MRI of the lumbar spine showed multilevel degenerative disc disease but no significant foraminal stenosis. MRI of the thoracic spine showed a chronic T11 compression fracture without any significant stenosis. PG Care Time/CCT Total # of Minutes Spent Total Time Spent with Patient: Total time spent is greater than 50% in co ordination of care (as documented) at patient's floor/unit and/or counseling patient:
[2018-11-07] MEDS ORDERED: ENOXAPARIN INJ 40 MG/0.4 ML SYR SQ SCH (21:00)
[2018-11-07] MEDS ORDERED: SODIUM CHLORIDE 0.9% 1000ML 1,000 ML IV SCH (21:15)
[2018-11-07] MEDS ORDERED: METOPROLOL TARTRATE 1 MG/ML VIAL IV STA ×2 (21:15→22:54)
[2018-11-07] MEDS ORDERED: SODIUM CHLORIDE 0.9% 500 ML IV SCH (21:15)
[2018-11-07] MEDS: LACTATED RINGER'S 1,000 ML IV SCH (21:23)
--- NOTE | 2018-11-07 21:41 | XRay Report ---
XR chest 1V portable CLINICAL HISTORY: 73 years-old Male presenting with congestion, hip pain, sepsis. TECHNIQUE: Portable upright AP view of the chest was obtained. COMPARISON: 11/07/2018 at 10:05 AM. FINDINGS: Low lung volumes. Cardiac silhouette mildly enlarged. Pulmonary vascular prominence has increased. In terlobular septal thickening may be present. Bibasilar opacities slightly increased in part due to va scular crowding. No large effusion or pneumothorax. Degenerative changes of the thoracic spine. Upper abdomen normal. IMPRESSION: 1. Worsening lung aeration with low lung volumes and hypoventilatory changes. 2. Worsened volume overload and congestive change. Developing pulmonary edema not excluded. Electronically signed by: Brandon Nettles M.D. 11/07/2018 9:40 PM
[2018-11-07] MEDS: ACETAMINOPHEN 65 ML IV PRN (21:54)
[2018-11-07] MEDS: HYDROmorphone INJ 1 MG/ML SYRINGE IV PRN (21:57)
[2018-11-07] MEDS ORDERED: FUROSEMIDE 20 MG in SYRINGE 0 ML IV STA (22:39)
[2018-11-07] MEDS ORDERED: DAPTOMYCIN CONSULT ACTIVE PRN (22:49)
[2018-11-08] MEDS: HYDROmorphone INJ 1 MG/ML SYRINGE IV PRN ×3 (00:26→23:27)
[2018-11-08] MEDS ORDERED: KETOROLAC TROMETHAMINE 15 MG/ML VIAL IV ONE (02:22)
[2018-11-08] MEDS ORDERED: FUROSEMIDE 20 MG in SYRINGE 0 ML IV ONE (02:22)
[2018-11-08 02:47] LABS: Basophils # (auto) 0.01 K/uL (0-0.2); Basophils % (auto) 0.1 %; Eosinophils # (auto) 0.01 K/uL (0-0.5); Eosinophils % (auto) 0.1 %; Hematocrit (blood only) 37.6 % (42-52); Hemoglobin 12.8 g/dL (14.0-18.0); Immature Granulocytes # (auto) 0.05 K/uL (0.00-0.02); Immature Granulocytes % (auto) 0.4 %; Lymphocytes # (auto) 0.98 K/uL (1.2-3.4); Lymphocytes % (auto) 8.1 %; Mean Corpuscular Hemoglobin 31.7 pg (25-34); Mean Corpuscular Volume 93.1 fL (80-100); Mean Platelet Volume 10.2 fL (7.4-10.4); Monocytes # (auto) 1.41 K/uL (0.11-0.59); Monocytes % (auto) 11.6 %; Neutrophils # (auto) 9.69 K/uL (1.4-6.5); Neutrophils % (auto) 79.7 %; Platelet Count 208 K/uL (130-400); RDW Coefficient of Variation 13.8 % (11.5-14.5); RDW Standard Deviation 47.4 fL (36.4-46.3); Red Blood Count 4.04 M/uL (4.7-6.1); White Blood Count 12.15 K/uL (4.8-10.8)
[2018-11-08 03:04] LABS: Albumin Level 2.8 gm/dl (3.4-5.0); BUN Creatinine Ratio 16.1 (10-20); Calcium 8.7 mg/dl (8.5-10.1); Creatinine Clr Calc Pharmacy 67.1 ml/min; Est GFR (African American) 65.2; Est GFR (Non-African American) 56.2; Magnesium 1.6 mg/dl (1.8-2.4); Potassium 4.4 mmol/L (3.5-5.1)
[2018-11-08 03:09] LABS: Albumin Globulin Ratio 0.5 (0.9-2); Bilirubin,Total 0.9 mg/dl (0.2-1); Globulin 5.9 gm/dl (2.5-4.0); Phosphorus 2.5 mg/dl (2.5-4.9); Total Protein 8.7 gm/dl (6.4-8.2); Troponin I 0.019 ng/ml (0-0.045)
[2018-11-08] MEDS: MAGNESIUM SULFATE / D5W 1 GM/100 ML BAG IV SCH ×2 (04:14→05:07)
[2018-11-08 05:58] LABS: Estimated Average Glucose 171 mg/dl; Hemoglobin A1C 7.6 % (4.5-5.6)
--- NOTE | 2018-11-08 07:09 | Orthopedic Progress Note ---
Date of Service November 08, 2018 Assessment & Plan (1) Right hip pain: With the positive blood cultures I am a little more concerned that there may be an infection in his right hip. After careful review of the MRI again last night, there may be enough fluid for an aspiration by radiology. I am going to send him down to radiology for a stat aspiration of the right hip joint. We will be able to treat him appropriately from there. Present on Admission?: Yes Leonor Dunaway was seen and examined at bedside again this morning. His hips feeling a little bit better and he was able to get some sleep last night. However, his blood cultures came back positive. He has not been up and ambulating on the hip. Physical Exam Musculoskeletal: Physical examination of his right hip is unchanged from last night. Results & Data Vital Signs (Past 12 Hours) Vital Signs Temp Pulse Pulse Pulse Resp BP BP 11/08/18 04:21 37.8 C H 103 H 18 92/50 L 11/08/18 02:19 38.4 C H 113 H 20 152/87 H 11/08/18 00:27 138 H 108/62 11/07/18 23:14 38.0 C H 111 H 18 102/63 11/07/18 22:37 37.9 C H 125 H 100/51 L 11/07/18 22:20 130 H 11/07/18 22:05 39.4 C H 135 H 124/67 11/07/18 19:29 37.7 C H 111 H 22 112/64 Pulse Ox 11/08/18 04:21 92 11/08/18 02:19 93 11/08/18 00:27 11/07/18 23:14 90 11/07/18 22:37 94 11/07/18 22:20 11/07/18 22:05 94 11/07/18 19:29 92 Laboratory Results Microbiology 11/07/18 10:12 Aerobic Blood Culture - Preliminary Blood Gram positive cocci clusters Anaerobic Blood Culture - Preliminary Gram positive cocci clusters 11/07/18 10:12 Aerobic Blood Culture - Preliminary Blood Gram positive cocci clusters Anaerobic Blood Culture - Preliminary Gram positive cocci clusters PG Care Time/CCT Total # of Minutes Spent Total Time Spent with Patient: Total time spent is greater than 50% in coordination of care (as documented) at patient's floor/unit and/or counseling patient:
--- NOTE | 2018-11-08 07:11 | Ultrasound Report ---
ULTRASOUND RIGHT UPPER QUADRANT ABDOMEN CLINICAL HISTORY: Sepsis. Cholelithiasis. COMPARISON STUDY: Abdominal CT dated 11/07/2018. TECHNIQUE: Real-time, grayscale, and color flow sonography of the right upper quadrant of the abdomen was performed. Images are reviewed in the transverse and longitudinal planes. FINDINGS: Liver: The liver is enlarged measuring over 20 cm in length. The liver demonstrates heterogeneously i ncreased echotexture indicating steatosis. There is no intrahepatic biliary ductal dilatation. The ma in portal vein is patent. Gallbladder: There are numerous shadowing calcified gallstones. There is no gallbladder wall thickeni ng or pericholecystic fluid. A sonographic Fernandez's sign is reportedly absent. The common bile duct m easures up to 0.4 cm in diameter. Pancreas: Visualized portions of the pancreatic head are normal in appearance. The majority of the pa ncreas was not well visualized. Right kidney: Survey images of the right kidney demonstrate normal size and echotexture. There is no hydronephrosis. Ascites: None. IMPRESSION: 1. Cholelithiasis without sonographic evidence of acute cholecystitis. 2. Hepatomegaly and hepatic steatosis. Electronically signed by: Per Hager M.D. 11/08/2018 7:10 AM
--- NOTE | 2018-11-08 07:43 | XRay Report ---
XR chest 1V portable HISTORY: sepsis COMPARISON: Chest 11/07/2018. FINDINGS: There are low lung volumes, unchanged. No pneumothorax. No pleural effusions. Mild elevatio n of the right hemidiaphragm is again noted. The heart is top normal in size. Bibasilar linear densit ies favor subsegmental atelectasis. This is also unchanged. There is mild pulmonary edema, unchanged. IMPRESSION: Low lung volumes with mild interstitial pulmonary edema, unchanged. Electronically signed by: Villa Hope M.D. 11/08/2018 7:42 AM
[2018-11-08] MEDS: INSULIN ASPART 100 UNITS/ML 3 ML PEN SC SCH ×4 (08:59→21:33)
[2018-11-08] MEDS: LACTATED RINGER'S 1,000 ML IV SCH (09:05)
[2018-11-08] MEDS: DOCUSATE SODIUM 100 MG CAP PO SCH ×2 (09:06→21:33)
[2018-11-08] MEDS: ASPIRIN 81 MG ECTAB PO SCH (09:07)
[2018-11-08] MEDS: CYANOCOBALAMIN 500 MCG TABLET (VITAMIN B-12) PO SCH (09:08)
[2018-11-08] MEDS: cefTRIAXone SODIUM 2,000 MG in DEXTROSE 5% 50 ML IV SCH (09:12)
--- NOTE | 2018-11-08 11:01 | Infectious Disease Consult ---
Date of Consultation November 08, 2018 Assessment & Plan (1) Gram positive sepsis: continue with abx, follow OR findings, echo if not already done. will repeat blood cultures x 2. History of Present Illness Attending Physician: Frank Johnson MD pt admitted with fevers and increased right hip pain. states hip pain began spontaneously at home 5-6 days ago, denies trauma to area. Saw ortho in office on Thursday, given prednisone, states bg increased at home to 300s. had fall due to right hip pain, came to ER, in ER temp 39.6. creat 1.4, wbc 12, ESR >90. crp 8, procalcitonin normal. underwent multiple imaging studies, ct/mri - T11 compression fracture noted, no discitis/osteo noted on MRI t and l spine. right hip MRI septic arthritis, no osteo. for OR this am for washout. Initial blood cultures growing gpc in all bottles, PCR + S. aureus, negative MRSA. Family at bedside, state they believe he had echo done yesterday. On roecphin and dapto, tolerating well. denies fevers now but has been persistently febrile since admission. Denies any previous surgeries, etc to right hip. did have dental cleaning 1-2 weeks ago, no other procedures. Currently denies cp, sob, cough, no abd pain, no n/v/d. no gu symptoms. Allergies Allergy/AdvReac Type Severity Reaction Status Date / Time No Known Allergies Allergy Unverified 11/07/18 10:25 Home Medications Home Medications Medication Instructions Recorded Confirmed Type cyanocobalamin (vitamin B-12) 1,000 mcg PO DAILY #0 tab 03/20/14 11/07/18 History [Vitamin B-12] docusate sodium [Colace] 100 mg PO BID #0 cap 03/20/14 11/07/18 History glipizide 10 mg PO BID #180 03/20/14 11/07/18 History acetaminophen [Tylenol] 325 mg PO Q6H PRN 11/07/18 11/07/18 History aspirin [Aspirin Low Dose] 81 mg PO DAILY 11/07/18 11/07/18 History lisinopril 20 mg PO DAILY 11/07/18 11/07/18 History metformin 1,000 mg PO BIDM 11/07/18 11/07/18 History metformin 500 mg PO 1200 11/07/18 11/07/18 History prednisone 20 mg PO UD 11/07/18 11/07/18 History Patient History Medical History NPDR (nonproliferative diabetic retinopathy) (Chronic) Diabetes mellitus, type II (Chronic) Kidney stones (Chronic) Hypertension (Chronic) B12 deficiency (Chronic) Urinary tract infection (Resolved) Surgical History History of lithotripsy (Chronic) Family History Father Coronary heart disease, Onset Age: 74 Mother Dementia CHF (congestive heart failure) Social History Preferred Language: Somali Communication Ability: Effective 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 Beliefs That Will Affect Care: None Current Living Situation: Spouse Other Information That Helps Us Care for You: No Feels Safe at Home: Yes Safety Concerns: Feels Safe At This Time Smoking Status: Former smoker Tobacco Type: cigarettes ; Do You Dip or Chew Tobacco: No ; Smoking End Date: during college ; Second Hand Exposure: No ; Tobacco Cessation Education Requested by Patient: No Hx Alcohol Use: Yes Alcohol type: hard liquor Alcohol Intake Frequency: Daily Alcohol Intake Frequency Comment: 2-4 oz bourbon daily Hx Substance Use: No Review of Systems Review of Systems: All systems reviewed & are unremarkable except as noted in HPI & below Physical Exam Constitutional: WD/WN, vitals as above Eyes: PERRL, conjunctivae normal, anicteric sclerae ENMT: external ear and nose normal, oropharynx normal Neck: normal visual inspection Respiratory: normal respiratory effort, lungs clear to auscultation Cardiovascular: RRR, no murmur, no edema Gastrointestinal (Abdomen): normal bowel sounds, soft, nontender, no hepatosplenomegaly Musculoskeletal: no cyanosis or clubbing, extremities motor strength 5/5 Head/Neck/Chest: + head abnormal to inspection, normocephalic and head atraumatic Extremities: extremities normal to inspection and + limited ROM of extremities (pain in right hip with movement) Skin: no rashes, warm and dry Psychiatric: A+Ox3, euthymic affect Results & Data Vital Signs (Past 12 Hours) Vital Signs Temp Pulse Pulse Pulse Resp BP BP 11/08/18 10:39 39.1 C H 11/08/18 10:33 39.5 C H 140 H 140 H 156/90 H 11/08/18 07:43 36.7 C 147 H 22 158/88 H 11/08/18 04:21 37.8 C H 103 H 18 92/50 L 11/08/18 02:19 38.4 C H 113 H 20 152/87 H 11/08/18 00:27 138 H 108/62 11/07/18 23:14 38.0 C H 111 H 18 102/63 Pulse Ox 11/08/18 10:39 11/08/18 10:33 96 11/08/18 07:43 94 11/08/18 04:21 92 11/08/18 02:19 93 11/08/18 00:27 11/07/18 23:14 90 Laboratory Results Microbiology 11/07/18 10:12 Blood Aerobic Blood Culture - Preliminary Staphylococcus aureus 11/07/18 10:12 Blood Anaerobic Blood Culture - Preliminary Staphylococcus aureus 11/07/18 10:12 Blood Aerobic Blood Culture - Preliminary Staphylococcus aureus 11/07/18 10:12 Blood Anaerobic Blood Culture - Preliminary Staphylococcus aureus PG Care Time/CCT Total # of Minutes Spent Total Time Spent with Patient: Total time spent is greater than 50% in coordination of care (as documented) at patient's floor/unit and/or counseling patient:
--- NOTE | 2018-11-08 11:07 | Consultation Report ---
DATE OF CONSULTATION: 11/08/2018 STAT ORTHOPEDIC CONSULTATION CHIEF COMPLAINT: Right hip pain. HISTORY OF PRESENT ILLNESS: Mr. Cody is 73 years old. He is a [id number] diabetic. One week ago, he developed a spontaneous onset of right hip pain. This gradually got worse. He was seen in our office on Thursday, had x-rays, which were negative. He got worse over the weekend and was only able to ambulate with a walker due to severe pain in his right hip and buttock area. He came to the Emergency Room where he was admitted to the medical service. He was diagnosed with sepsis. Multiple studies have been done. He had a dental cleaning about a week prior to developing symptoms. There has been no injury to the right hip and he has not had any tick or insect bites. Here in the hospital, he has been diagnosed with sepsis. An MRI of the lumbar and thoracic spine has shown a subacute or chronic significant T12 compression fracture. He had some problems with his SI joint about 2 years ago, but has not had any accidents or injuries to his back or knowledge of this type of back problem. Currently, he is not having any back pain. He has had a fever repeatedly. He has 2 sets of positive blood cultures for staph. He has been placed on intravenous antibiotics. Hip x-rays are negative. MRI of the pelvis is unremarkable. An MRI of the hip demonstrates edema around the right hip joint. There is heterogeneous marrow signal with no evidence of avascular necrosis or osteomyelitis. There is fluid within the hip joint, which is mild to moderate. His white blood cell count is elevated. His sed rate and C-reactive protein are both markedly elevated. REVIEW OF SYSTEMS: There is no history of bleeding, blood clots, or metal allergies. He has had urinary tract problems and has had kidney stones with stents placed. Otherwise, he has had no surgery. He denies any allergies. There is no significant heart, lung, or liver disease. He has not had cancer. He does have type 2 diabetes. PHYSICAL EXAMINATION: He is awake, alert, and oriented, in no acute distress. Any movement of the right hip is significantly painful. He is limited to about 30 degrees of hip flexion. He cannot actively lift his right leg because of pain. He cannot do a straight leg raise. Log rolling is painful in the right hip. Posterior tib is trace, dorsalis pedis 1+. His sensation is intact throughout the leg and he has 5/5 ankle and toe plantarflexion and dorsiflexion strength. There is some tenderness around the lateral and posterolateral aspect of the hip. The lumbar spine is nontender. There is no deformity. He has no erythema or swelling noted in the right leg, and the right SI joint area and buttock are unremarkable. He has full movement of his left leg and he has normal strength in the left. He has no complaint of pain in other areas of the body. He has a couple of excoriations on the skin, left shoulder and left arm, but there is no evidence of cellulitis or infection. IMPRESSION: Right hip pain, sepsis, Staphylococcus aureus positive blood cultures x2. PLAN: My findings were discussed with the patient. I think that the evidence points to him having developed a spontaneous septic arthritis of his [place] right hip joint. He was scheduled for an aspiration, which is to be done at 1:00 today. In my opinion, I think given the evidence, would strongly suggest sepsis of the right hip. It would be nice to have a confirmation; however, we are not sure whether or not we could actually get fluid out of the hip and this potentially could delay his care. We talked about infection in the joint can cause cartilage destruction and cause arthritis. He already has sepsis and there is a chance that this could worsen the longer this process goes on. My recommendation is an urgent irrigation and debridement of the right hip and he agrees to proceed. He is educated about the treatment options, risks and benefits and agrees to proceed. He did have part of his breakfast today, and in my medical opinion, proceeding with surgery as soon as prudently possible outweighs the risks of potential aspiration. He is on intravenous antibiotics. He is made n.p.o. and informed consent is obtained. The plan will be for an anterior approach, irrigation and debridement of the hip, culture, fluid analysis and insertion of a drain. We talked about the possibility for developing hip arthritis secondary to sepsis. Further surgery might be necessary, which could include repeat washout or eventually a total hip replacement. It is theoretically possible that we do not identify infection within the hip, but I think given the circumstances that proceeding as I recommended is prudent. After surgery, we will consult spine to evaluate his back issue.
[2018-11-08] MEDS ORDERED: fentaNYL citrate 100 MCG/2 ML VIAL IV PRN (11:14)
[2018-11-08] MEDS ORDERED: METOCLOPRAMIDE HCL INJ 5 MG/ML 2 ML VIAL IV PRN (11:14)
[2018-11-08] MEDS ORDERED: ePHEDrine sulfate 50 MG/ML AMP IV PRN (11:14)
[2018-11-08] MEDS ORDERED: ATROPINE SULFATE 0.1 MG/ML 10ML SYR IV PRN (11:14)
[2018-11-08] MEDS ORDERED: PROMETHAZINE HCL 12.5 MG in SODIUM CHLORIDE 0.9% 50 ML IV PRN (11:14)
[2018-11-08] MEDS ORDERED: ONDANSETRON INJ 2 MG/ML 2 ML VIAL IV PRN (11:14)
[2018-11-08] MEDS ORDERED: HYDROmorphone INJ 2 MG/ML SYR/VIAL IV PRN (11:14)
--- NOTE | 2018-11-08 11:14 | Anesthesiology Consultation ---
Date of Service November 08, 2018 Assessment & Plan Chart Review Chart Review: Acceptable Risk for Surgery Consults Requested none History Surgery Operation Date: 11/08/18 07:40 Proposed Procedures p Right Hip Incision and Drainage - Brandon Foss MD Height/Weight Height: 6 ft 1 in Weight: 107.2 kg Allergies Allergy/AdvReac Type Severity Reaction Status Date / Time No Known Allergies Allergy Unverified 11/07/18 10:25 Medications Home Medications Medication Instructions Recorded Confirmed Last Taken cyanocobalamin (vitamin B-12) 1,000 mcg PO DAILY #0 tab 03/20/14 11/07/18 11/06/18 [Vitamin B-12] docusate sodium [Colace] 100 mg PO BID #0 cap 03/20/14 11/07/18 11/06/18 glipizide 10 mg PO BID #180 03/20/14 11/07/18 11/06/18 acetaminophen [Tylenol] 325 mg PO Q6H PRN 11/07/18 11/07/18 11/07/18 aspirin [Aspirin Low Dose] 81 mg PO DAILY 11/07/18 11/07/18 11/06/18 lisinopril 20 mg PO DAILY 11/07/18 11/07/18 Unknown metformin 1,000 mg PO BIDM 11/07/18 11/07/18 Unknown metformin 500 mg PO 1200 11/07/18 11/07/18 Unknown prednisone 20 mg PO UD 11/07/18 11/07/18 11/06/18 Active Medications Generic Name Dose Route Start Last Admin Trade Name Freq PRN Reason Stop Dose Admin Acetaminophen 650 mg 11/07/18 17:18 11/07/18 17:26 Tylenol PO 12/07/18 17:17 650 mg Q4H PRN Administration Pain or Fever Aspirin 81 mg 11/08/18 09:00 11/08/18 09:07 Ecotrin Ectab PO 12/08/18 08:59 81 mg DAILY PORSHA Administration Cyanocobalamin 1,000 mcg 11/08/18 09:00 11/08/18 09:08 Vitamin B-12 PO 12/08/18 08:59 1,000 mcg DAILY PORSHA Administration Docusate Sodium 100 mg 11/07/18 21:00 11/08/18 09:06 Colace PO 12/07/18 20:59 100 mg BID PORSHA Administration Enoxaparin Sodium 40 mg 11/07/18 21:00 11/07/18 19:41 Lovenox SQ 12/07/18 20:59 40 mg HS PORSHA Administration Gadobutrol 12.5 ml 11/07/18 16:01 11/07/18 16:02 Gadavist 65ml IV 11/11/18 16:00 12.5 ml ONCE PRN Administration Interaction Checking Hydromorphone HCl 1 mg 11/07/18 21:19 11/08/18 00:26 Dilaudid IV 11/21/18 19:27 1 mg Q2H PRN Administration Severe Pain Insulin Human Regular 250 250 mls @ 2.2 mls/hr 11/07/18 13:00 11/08/18 10:47 units/ Sodium Chloride IV 12/07/18 12:59 2.2 units/hr .Q24H PORSHA 2.2 mls/hr Titration Protocol 2.2 UNITS/HR Ceftriaxone Sodium 2,000 mg/ 70 mls @ 140 mls/hr 11/08/18 09:00 11/08/18 10:31 Dextrose IV 11/15/18 08:59 Infused Q24H PORSHA Infusion Lactated Ringer's 1,000 mls @ 50 mls/hr 11/07/18 21:15 11/08/18 09:05 Lr IV 12/07/18 21:14 50 mls/hr .Q20H PORSHA Administration Acetaminophen 65 mls @ 200 mls/hr 11/07/18 21:45 11/07/18 22:17 Ofirmev IV 12/07/18 21:44 Infused Q6H PRN Infusion Pain or Fever Insulin Aspart 0 units 11/07/18 17:30 11/08/18 08:59 Novolog Flexpen SC 12/07/18 17:29 2 units ACHS PORSHA Administration Ioversol 94 ml 11/07/18 11:12 11/07/18 11:13 Optiray 320 100ml IV 11/11/18 11:11 94 ml ONCE PRN Administration Interaction Checking NPO Date Last Intake of Fluids: 11/08/18 Time Last Intake of Fluids: 09:00 Date Last Intake of Solids: 11/08/18 Time Last Intake of Solids: 08:00 Past Medical History Medical History NPDR (nonproliferative diabetic retinopathy) (Chronic) Diabetes mellitus, type II (Chronic) Kidney stones (Chronic) Hypertension (Chronic) B12 deficiency (Chronic) Urinary tract infection (Resolved) Past Family History Family History Father Coronary heart disease, Onset Age: 74 Mother Dementia CHF (congestive heart failure) Past Surgical History Surgical History History of lithotripsy (Chronic) Social History Smoking Status: Former smoker tobacco type: cigarettes Do You Dip or Chew Tobacco: No Smoking End Date: during college Hx Alcohol Use: Yes Alcohol type: hard liquor alcohol intake frequency: other Alcohol Intake Frequency Comment: 2 to 4 oz a day bourbon Hx Substance Use: No Physical Exam Vital Signs Last Vital Signs Temp 39.0 C H 11/08/18 11:05 Pulse 141 H 11/08/18 11:05 Resp 20 11/08/18 11:05 BP 114/85 11/08/18 11:05 Pulse Ox 94 11/08/18 11:05 Testing Laboratory Results 11/08/18 02:36 11/08/18 02:36 PT 10.8 Seconds (9.0-12.0) 11/07/18 09:48 INR 1.1 (0.9-1.1) 11/07/18 09:48 APTT 24.5 Seconds (21.0-31.0) 11/07/18 09:48 Hemoglobin A1c 7.6 % (4.5-5.6) H 11/08/18 02:36 Urine Color Yellow 11/07/18 10:30 Urine Appearance Clear (Clear) 11/07/18 10:30 Urine pH 5.0 (4.5-7.5) 11/07/18 10:30 Ur Specific [place] 1.030 (1.000-1.030) 11/07/18 10:30 Urine Protein 1+ (Negative) H 11/07/18 10:30 Urine Glucose (UA) 3+ (Negative) H 11/07/18 10:30 Urine Ketones Trace (Negative) H 11/07/18 10:30 Urine Nitrite Negative (Negative) 11/07/18 10:30 Ur Leukocyte Esterase Negative (Negative) 11/07/18 10:30 Urine WBC (Auto) 1-5 /hpf (0-5) 11/07/18 10:30 Urine RBC (Auto) 0-4 /hpf (0-4) 11/07/18 10:30 U Hyaline Cast (Auto) 0 /lpf (0-5) 11/07/18 10:30 U Epithel Cells (Auto) 0-5 /lpf (0-5) 11/07/18 10:30 Urine Bacteria (Auto) Negative (Negative) 11/07/18 10:30 11/07/18 10:12 Aerobic Blood Culture - Preliminary Blood Staphylococcus aureus Anaerobic Blood Culture - Preliminary Staphylococcus aureus 11/07/18 10:12 Aerobic Blood Culture - Preliminary Blood Staphylococcus aureus Anaerobic Blood Culture - Preliminary Staphylococcus aureus 11/08/18 11/08/18 11/08/18 10:43 09:49 08:46 POC Glucose 167 H 165 H 196 H 11/08/18 11/08/18 11/08/18 07:45 07:07 06:01 POC Glucose 151 H 143 H 197 H 11/08/18 11/08/18 11/08/18 04:19 02:16 00:14 POC Glucose 169 H 184 H 228 H 11/07/18 23:16 POC Glucose 229 H
[2018-11-08] MEDS: ACETAMINOPHEN 65 ML IV PRN (11:47)
[2018-11-08] MEDS ORDERED: BACITRACIN INJ 50,000 UNIT VIAL ONE (12:05)
[2018-11-08] MEDS ORDERED: MIDAZOLAM HCL 1 MG/ML 2ML VIAL ONE (12:15)
[2018-11-08] MEDS ORDERED: PROPOFOL IV EMULSION 10 MG/ML 20 ML VIAL IV ONE (12:15)
[2018-11-08] MEDS ORDERED: LIDOCAINE HCL 2% 2 ML VIAL/AMP(20MG/ML) INFIL ONE (12:15)
[2018-11-08] MEDS ORDERED: SUCCINYLCHOLINE CHLORIDE 20 MG/ML 10 ML VIAL ONE (12:15)
[2018-11-08] MEDS ORDERED: ONDANSETRON INJ 2 MG/ML 2 ML VIAL ONE (12:15)
[2018-11-08] MEDS ORDERED: DEXAMETHASONE SOD INJ 4 MG/ML VIAL ONE (12:15)
[2018-11-08] MEDS ORDERED: fentaNYL citrate 100 MCG/2 ML VIAL ONE ×2 (12:15→12:53)
[2018-11-08] MEDS ORDERED: CEFAZOLIN 250 MG/ML 1 GM VIAL ONE (12:18)
[2018-11-08] MEDS ORDERED: ROCURONIUM BROMIDE 10 MG/ML 5 ML VIAL ONE (13:07)
[2018-11-08] MEDS ORDERED: NEOSTIGMINE METHYLSULFATE 5 MG/5 ML SYR ONE (13:50)
[2018-11-08] MEDS ORDERED: GLYCOPYRROLATE 0.2 MG/ML VIAL ONE (13:50)
[2018-11-08] MEDS ORDERED: CEFAZOLIN 2000MG 2,000 MG/15 ML SYR IV ONE (13:57)
[2018-11-08] MEDS ORDERED: DAPTOmycin 500 MG in SYRINGE 0 ML IV SCH (14:00)
--- NOTE | 2018-11-08 14:08 | Operative Report ---
Post Operative Report Pre & Post Diagnosis Operation Date: 11/08/18 07:40 Pre-Op Diagnosis: right hip pain Post-Op Diagnosis: septic arthritis of [place] right hip joint Procedure Operation Date: 11/08/18 07:40 Actual Procedures p Right Hip Incision and Drainage(Right) - Brandon Foss MD Surgeon Brandon Foss MD Hollow Ware Maker Marely.Oscar Estimated Blood Loss 3 Findings Consistent with Post-Op Diagnosis Specimens as per Dr Foss's notes Complications none Disposition Accompanied Patient To Recovery: Yes Disposition: Recovery Room Indications Septic arthritis R hip Description of Procedure Supine, sand bag under R buttock, standard prep and drape, time out, Panda 's approach for I&D of R hip Please see Dr Foss's notes for specific details I was present throughout the procedure, assisted wound closure and transferred the patient to PACU in stable condition. I attest to the content of the Intraoperative Record and any orders documented therein. Any exceptions are noted below.
--- NOTE | 2018-11-08 14:15 | Operative Report ---
Post Operative Report Pre & Post Diagnosis Operation Date: 11/08/18 07:40 Pre-Op Diagnosis: right hip pain Post-Op Diagnosis: septic arthritis of [place] right hip joint Procedure Operation Date: 11/08/18 07:40 Actual Procedures p Right Hip Incision and Drainage(Right) - Brandon Foss MD Surgeon Brandon Foss MD Political Researcher Se Lorriefcjames Estimated Blood Loss 3 Findings Consistent with Post-Op Diagnosis Specimens Synovial joint fluid for crystal analysis cell count with differential and a swab culture for aerobic and anaerobic culture. Drains 1 Hemovac drain Anesthesia Type General Complications none Disposition Accompanied Patient To Recovery: No Indications Patient 73 years old. He is a diabetic. He has a 1 week history of progressively severe right hip pain. He does not have a total joint. He had a dental procedure about 2 weeks ago. Essentially all measures of inflammation and infection are elevated were positive. He has fever and elevated white count sed rate C-reactive protein. He has blood cultures positive for Staphylococcus aureus x2. He is taken to the OR for an I&D of presumptive [place] septic arthritis of the right hip. Description of Procedure Informed consent obtained. Patient identified. He identified the operative site as the right hip. I marked with my initials. Preop surgical timeout was performed. Preop dose of IV antibiotics was given. He was already on intravenous antibiotics. He was positioned supine with a bump under the right hip. The exam was unremarkable there was no restriction of movement no erythema or swelling. The right hip and upper leg area were prepped and draped in usual sterile fashion. DVT prophylaxis will be done with early patient mobility and Lovenox postoperatively. Patient did receive a dose of prophylactic Lovenox approximately 15 hours prior to surgery. Routine prep and drape was performed. An incision of about 10 cm in length beginning 3 cm distal and lateral to the anterior superior iliac spine was made. The skin was incised and divided with electrocautery down to the level of the fascia. The lateral femoral cutaneous nerve or 1 of its branches was identified in the interval between the sartorius and tensor fascia denice. It was preserved and protected. The fascia was divided between these 2 muscles and that interval was digitally explored and dissected. Deep to this the rectus femoris and gluteus medius were identified and the transversing branches of the anterior branch lateral circumflex were ligated with 2-0 silk ties. The rectus femoris was retracted medialward and the joint capsule was identified by movement of the hip. An 18-gauge needle was utilized to aspirate the hip joint yielding 2-1/2 cc of yellowish purulent material. This was sent for crystal analysis and stat cell count with differential. The hip joint capsule was then incised in line with the neck and Hohmann retractors were inserted. No further pus was noted. While moving the hip and distracting it. Digital exploration was performed around the hip joint and capsule and no further pockets of pus were noted. A drain was inserted exerting anterolaterally. The capsule and deep layers were left open. The superficial layers were closed with 2-0 Vicryl and grzegorz on the skin. Prior to irrigating the hip joint and after opening the capsule a cu lture was obtained. This was sent for Gram stain aerobic and anaerobic. Leg was cleaned with wet and dry sponges and soft sterile dressing was applied. He was awakened from anesthesia without difficulty and taken to the recovery room in stable condition. Specimens were as mentioned above. Counts are correct blood loss was approximately 3 cc. At the conclusion the operation spoke patient's family informed of my findings and postoperative instructions were given. He may partial weight-bear with a walker and will receive intravenous antibiotics according to culture results. I attest to the content of the Intraoperative Record and any orders documented therein. Any exceptions are noted below.
--- NOTE | 2018-11-08 14:18 | Operative Report ---
Post Operative Report Pre & Post Diagnosis Operation Date: 11/08/18 07:40 Pre-Op Diagnosis: right hip pain Post-Op Diagnosis: septic arthritis of [place] right hip joint Procedure Operation Date: 11/08/18 07:40 Actual Procedures p Right Hip Incision and Drainage(Right) - Brandon Foss MD Surgeon Brandon Foss MD Zipper Lining Folder Marely.Sefcjames Estimated Blood Loss 3 Findings Consistent with Post-Op Diagnosis Specimens see operative report Drains R thigh hemovac Complications none Disposition Accompanied Patient To Recovery: Yes Disposition: Recovery Room Indications This 73-year-old white male presented through the ED for admission of right low back and hip pain. He had tried outpatient management and pain control was inadequate. Imaging studies were obtained and suggested possible septic joint of the right hip. He elected to proceed with surgical intervention after being educated about potential risks and outcomes. Description of Procedure Patient was taken to the operating room where he was given general anesthesia. He was prepped and draped in the usual sterile fashion. Please see Dr. Foss's operative report for specifics of the procedure. I was present for the entire case from initial patient positioning through final wound closure. Assistance was provided in tissue retraction, hemostasis, and final wound closure. Patient was taken to the recovery room in satisfactory condition. I attest to the content of the Intraoperative Record and any orders documented therein. Any exceptions are noted below.
[2018-11-08 14:28] LABS: Appearance Synovial Fluid BLOODY; Color Synovial Fluid RED; Mononuclear WBC Synovial 5.7 %; Polynuclear WBC Synovial 94.3 %; RBC Synovial Fluid (A) 220000 /uL; Source Synovial Fluid HIP; WBC Synovial Fluid (A) 110340 /uL (0-200)
--- NOTE | 2018-11-08 15:53 | Anesthesiology Progress Note ---
Date of Service November 08, 2018 Anesthesia Post Procedure Vital Signs Vital Signs: Temp Pulse Pulse Pulse Pulse Resp BP 11/08/18 15:42 86 11/08/18 15:15 37.3 C 89 11/08/18 14:55 88 19 109/67 11/08/18 14:50 83 21 113/71 11/08/18 14:46 36.8 C 11/08/18 14:45 84 21 116/66 11/08/18 14:40 86 21 11/08/18 14:35 89 20 134/69 11/08/18 14:30 87 21 129/71 11/08/18 14:25 85 25 H 138/71 11/08/18 14:20 90 25 H 131/67 11/08/18 14:15 82 25 H 122/76 11/08/18 14:10 88 20 134/73 11/08/18 14:07 36.4 C L 87 90 22 131/68 11/08/18 11:05 39.0 C H 141 H 20 11/08/18 10:39 39.1 C H 11/08/18 10:33 39.5 C H 140 H 140 H 11/08/18 10:00 101 H 11/08/18 07:43 36.7 C 147 H 22 11/08/18 04:21 37.8 C H 103 H 18 11/08/18 02:19 38.4 C H 113 H 20 11/08/18 00:27 138 H 108/62 11/07/18 23:14 38.0 C H 111 H 18 11/07/18 22:37 37.9 C H 125 H 11/07/18 22:20 130 H 11/07/18 22:05 39.4 C H 135 H 11/07/18 19:29 37.7 C H 111 H 22 11/07/18 17:00 38.6 C H 125 H 20 BP BP Pulse Ox 11/08/18 15:42 11/08/18 15:15 107/65 2 L 11/08/18 14:55 97 11/08/18 14:50 96 11/08/18 14:46 96 11/08/18 14:45 96 11/08/18 14:40 95 11/08/18 14:35 99 11/08/18 14:30 98 11/08/18 14:25 98 11/08/18 14:20 96 11/08/18 14:15 96 11/08/18 14:10 94 11/08/18 14:07 131/68 92 11/08/18 11:05 114/85 94 11/08/18 10:39 11/08/18 10:33 156/90 H 96 11/08/18 10:00 11/08/18 07:43 158/88 H 94 11/08/18 04:21 92/50 L 92 11/08/18 02:19 152/87 H 93 11/08/18 00:27 11/07/18 23:14 102/63 90 11/07/18 22:37 100/51 L 94 11/07/18 22:20 11/07/18 22:05 124/67 94 11/07/18 19:29 112/64 92 11/07/18 17:00 163/94 H 95 Pain Intensity Right Hip: Pain Intensity: 0 Transfer of Care Handoff Completed per policy Notes Mental Status: alert / awake / arousable and participated in evaluation Patient Amnestic to Procedure: Yes Nausea / Vomiting: adequately controlled Pain: adequately controlled Airway Patency, RR, SpO2: stable & adequate BP & HR: stable & adequate Hydration State: stable & adequate Anesthetic Complications: no major complications apparent
[2018-11-08] MEDS: DAPTOmycin 800 MG in SYRINGE 0 ML IV SCH (16:49)
--- NOTE | 2018-11-08 18:31 | Hospitalist Progress Note ---
Date of Service November 08, 2018 Assessment & Plan (1) Sepsis: Met sepsis criteria at presentation with temperature of 39.3 and tachycardia 120 Blood cultures were taken Started with intravenous ceftriaxone and daptomycin (2) Gram positive sepsis: Blood culture came back positive for Staphylococcus aureus He has had dental procedure about 1 week to 10 days ago The source seems to be right hip joint Status post aspiration of right hip consistent with septic arthritis (3) Right hip pain: Right hip septic arthritis Has had hip pain for 5 or 6 days and was seen in outpatient Ortho clinic and was prescribed prednisone Condition did not improve MRI of the right hip did show probable septic arthritis Status post aspiration which showed deisi pus in aspirate Right hip incision and drainage done by orthopedic surgeon Appreciate Ortho input and recommendation ID has been consulted We will continue current antibiotic (4) Metabolic acidosis: This is a 73-year-old male who has significant past medical history of T2DM, nonproductive diabetic retinopathy, history of nephrolithiasis who presents to [facility] ED after suffering mechanical fall at home. In ED patient febrile temp 39.3, tachycardic 120, blood pressure stable Initial CO2 was 20 and creatinine 1.49 and lactic acid is elevated more than 3 Received intravenous fluid Renal function and CO2 level were normalized (5) Compression fx, thoracic spine: pt w/o acute complaint or pain CT of the femur and abdomen/pelvis showed severe compression fracture T1 new from prior moderate compression fracture L4 Remains stable now Has cholelithiasis No cholecystitis (6) Diabetes mellitus, type II: A1C 8.4 02/2018 on metformin and glipizide as outpt hold oral meds Blood sugar noted to be high more than 300 as an outpatient and is complicated by use of prednisone Intravenous insulin has been discontinued We will put him on a sliding scale insulin coverage (7) Hypertension: hold lisinopril in setting of sepsis monitor, blood pressure currently stable BP seems to be stable DVT prophylaxis Subcu Lovenox-will be started from tomorrow CODE STATUS Full for now Subjective 11/08 The patient was seen and examined in telemetry unit in presence of the He is admitted with fevers and increased right hip pain for about 5-6 days , denies trauma to area. Saw ortho in office on Thursday, given prednisone, has had a fall due to right hip pain, came to ER, in ER temp 39.6. creat 1.4, wbc 12, ESR >90. crp 8, procalcitonin normal. Underwent multiple imaging studies, ct/mri - T11 compression fracture noted, no discitis/osteo noted on MRI t and l spine. right hip MRI septic arthritis, no osteo. Still complains some pain in the right hip especially with any movement of right lower extremity Has had fever and chills as of yesterday 11/07 Review of Systems Review of Systems: All systems reviewed and are unremarkable except as noted below Constitutional: + chills and + weakness Musculoskeletal: + joint pain (Right hip pain with any movement of the right lower extremity) Physical Exam Physical Exam: Lying in bed with minimal discomfort due to right hip pain Constitutional: well developed, well nourished and + ill appearing Eyes: PERRL, conjunctivae normal, anicteric sclerae ENMT: external ear and nose normal, oropharynx normal Neck: trachea midline, no thyromegaly Respiratory: normal respiratory effort; no respiratory distress Auscultation: lungs clear to auscultation bilaterally Cardiovascular: Rate/Rhythm: regular rate and regular rhythm Heart Sounds: no murmur Gastrointestinal (Abdomen): Inspection/Auscultation: abdomen normal to inspection Percussion/Palpation: abdomen soft Musculoskeletal: No localized tenderness over the greater trochanter. Any movement of the right hip produces pain Lymphatic: no cervical or axillary lymphadenopathy Results & Data Vital Signs (Past 12 Hours) Vital Signs Temp Pulse Pulse Pulse Pulse Resp BP 11/08/18 15:42 86 11/08/18 15:34 37.3 C 77 19 11/08/18 15:15 37.3 C 89 11/08/18 14:55 88 19 109/67 11/08/18 14:50 83 21 113/71 11/08/18 14:46 36.8 C 11/08/18 14:45 84 21 116/66 11/08/18 14:40 86 21 11/08/18 14:35 89 20 134/69 11/08/18 14:30 87 21 129/71 11/08/18 14:25 85 25 H 138/71 11/08/18 14:20 90 25 H 131/67 11/08/18 14:15 82 25 H 122/76 11/08/18 14:10 88 20 134/73 11/08/18 14:07 36.4 C L 87 90 22 131/68 11/08/18 11:05 39.0 C H 141 H 20 11/08/18 10:39 39.1 C H 11/08/18 10:33 39.5 C H 140 H 140 H 11/08/18 10:00 101 H 11/08/18 07:43 36.7 C 147 H 22 BP BP Pulse Ox 11/08/18 15:42 11/08/18 15:34 106/62 93 11/08/18 15:15 107/65 2 L 11/08/18 14:55 97 11/08/18 14:50 96 11/08/18 14:46 96 11/08/18 14:45 96 11/08/18 14:40 95 11/08/18 14:35 99 11/08/18 14:30 98 11/08/18 14:25 98 11/08/18 14:20 96 11/08/18 14:15 96 11/08/18 14:10 94 11/08/18 14:07 131/68 92 11/08/18 11:05 114/85 94 11/08/18 10:39 11/08/18 10:33 156/90 H 96 11/08/18 10:00 11/08/18 07:43 158/88 H 94 Laboratory Results Short CBC 11/07/18 11/08/18 Range/Units 09:48 02:36 WBC 11.32 H 12.15 H (4.8-10.8) K/uL Hgb 13.9 L 12.8 L (14.0-18.0) g/dL Hct 40.0 L 37.6 L (42-52) % Plt Count 284 208 (130-400) K/uL BMP 11/08/18 02:36 Sodium 136 Potassium 4.4 Chloride 104 Carbon Dioxide 23 BUN 20 H Creatinine 1.26 Glucose 183 H Calcium 8.7 Cardiac Enzymes 11/08/18 11/08/18 Range/Units 02:36 08:10 Troponin I 0.019 < 0.015 (0-0.045) ng/ml Liver Function 11/08/18 Range/Units 02:36 Total Bilirubin 0.9 (0.2-1) mg/dl AST 18 (15-37) U/L ALT 32 (12-78) U/L Alkaline Phosphatase 54 (45-117) U/L Albumin 2.8 L (3.4-5.0) gm/dl Medications Administered Current Inpatient Medications Acetaminophen (Tylenol) 650 mg PO Q4H PRN PRN Reason: Pain or Fever Stop: 12/07/18 17:17 Last Admin: 11/07/18 17:26 Dose: 650 mg Documented by: Aspirin (Ecotrin Ectab) 81 mg PO DAILY PORSHA Stop: 12/08/18 08:59 Last Admin: 11/08/18 09:07 Dose: 81 mg Documented by: Cyanocobalamin (Vitamin B-12) 1,000 mcg PO DAILY PORSHA Stop: 12/08/18 08:59 Last Admin: 11/08/18 09:08 Dose: 1,000 mcg Documented by: Dextrose (Dextrose 50%) 25 - 50 ml IV UD PRN; Protocol PRN Reason: Hypoglycemia Protocol Stop: 12/07/18 17:17 Docusate Sodium (Colace) 100 mg PO BID PORSHA Stop: 12/07/18 20:59 Last Admin: 11/08/18 09:06 Dose: 100 mg Documented by: Gadobutrol (Gadavist 65ml) 12.5 ml IV ONCE PRN PRN Reason: Interaction Checking Stop: 11/11/18 16:00 Last Admin: 11/07/18 16:02 Dose: 12.5 ml Documented by: Glucagon (Glucagen) 1 mg SQ UD PRN; Protocol PRN Reason: Hypoglycemia Protocol Stop: 12/07/18 17:17 Glucose (Glucose 40%) 15 - 30 gm PO UD PRN; Protocol PRN Reason: Hypoglycemia Protocol Stop: 12/07/18 17:17 Glucose (Dex4 Glucose) 4 - 8 tabs PO UD PRN; Protocol PRN Reason: Hypoglycemia Protocol Stop: 12/07/18 17:17 Hydromorphone HCl (Dilaudid) 1 mg IV Q2H PRN PRN Reason: Severe Pain Stop: 11/21/18 19:27 Last Admin: 11/08/18 00:26 Dose: 1 mg Documented by: Ceftriaxone Sodium 2,000 mg/ (Dextrose) 70 mls @ 140 mls/hr IV Q24H PORSHA Stop: 11/15/18 08:59 Last Infusion: 11/08/18 10:31 Dose: Infused Documented by: Lactated Ringer's (Lr) 1,000 mls @ 50 mls/hr IV .Q20H PORSHA Stop: 12/07/18 21:14 Last Infusion: 11/08/18 16:51 Dose: 50 mls/hr Documented by: Daptomycin 800 mg/ Syringe 16 mls @ 8 mls/min IV Q24H PORSHA; Protocol Stop: 11/20/18 13:01 Last Admin: 11/08/18 16:49 Dose: 8 mls/min Documented by: Insulin Aspart (Novolog Flexpen) 0 units SC ACHS PORSHA Stop: 12/08/18 16:29 Last Admin: 11/08/18 17:24 Dose: 5 units Documented by: Lorazepam (Ativan) 1 mg PO ONE PRN; Protocol PRN Reason: EtoH Withdrawal AWSS 6-10 Miscellaneous (Carbohydrates For Hypoglycemia) 15 - 30 gm PO UD PRN PRN Reason: Hypoglycemia Treatment Stop: 12/07/18 17:17 Miscellaneous Information (Pharmacy Consult) 1 ea N/A UD PRN PRN Reason: Consult Stop: 12/07/18 17:24 Miscellaneous Information (Consult) 1 ea N/A UD PRN PRN Reason: Consult Stop: 12/07/18 22:48 (1) Compression fx, thoracic spine Encounter type: initial encounter Thoracic vertebra fracture level: T11 Qualified Code(s): S22.080A - Wedge compression fracture of T11-T12 vertebra, initial encounter for closed fracture
[2018-11-09] MEDS: ACETAMINOPHEN 325 MG TAB PO PRN ×2 (03:30→21:35)
[2018-11-09] MEDS: LACTATED RINGER'S 1,000 ML IV SCH (04:25)
[2018-11-09 07:04] LABS: Basophils # (auto) 0.01 K/uL (0-0.2); Basophils % (auto) 0.1 %; Eosinophils # (auto) 0.03 K/uL (0-0.5); Eosinophils % (auto) 0.4 %; Hematocrit (blood only) 32.3 % (42-52); Hemoglobin 10.8 g/dL (14.0-18.0); Immature Granulocytes # (auto) 0.03 K/uL (0.00-0.02); Immature Granulocytes % (auto) 0.4 %; Lymphocytes # (auto) 0.92 K/uL (1.2-3.4); Lymphocytes % (auto) 11.8 %; Mean Corpuscular Hemoglobin 30.9 pg (25-34); Mean Corpuscular Hgb Conc 33.4 g/dL (32-36); Mean Corpuscular Volume 92.6 fL (80-100); Mean Platelet Volume 10.4 fL (7.4-10.4); Monocytes # (auto) 0.93 K/uL (0.11-0.59); Neutrophils # (auto) 5.85 K/uL (1.4-6.5); Neutrophils % (auto) 75.3 %; Platelet Count 163 K/uL (130-400); RDW Coefficient of Variation 13.9 % (11.5-14.5); RDW Standard Deviation 47.1 fL (36.4-46.3); Red Blood Count 3.49 M/uL (4.7-6.1); White Blood Count 7.77 K/uL (4.8-10.8)
[2018-11-09 07:43] LABS: BUN Creatinine Ratio 21.9 (10-20); Calcium 8.2 mg/dl (8.5-10.1); Creatinine Clr Calc Pharmacy 78.3 ml/min; Est GFR (African American) 78.5; Est GFR (Non-African American) 67.7
--- NOTE | 2018-11-09 08:16 | Progress Note ---
DATE: 11/08/2018 SUBJECTIVE: He is resting comfortably. His vital signs are stable. He has been afebrile since surgery. Overall, he feels much better. He has much less pain in his hip and is able to bend his knee slightly with much less pain than he had before. The fluid showed no crystals and it did have 110,000 white cells. The Gram stain showed a few white cells and gram-positive cocci. OBJECTIVE: Dorsalis pedis is 1+. Sensation in the leg is normal. He has 5/5 ankle and toe plantar flexion and dorsiflexion strength. At this point, he is not able to lift his leg. ASSESSMENT AND PLAN: The plan will be to continue the drain and discontinue tomorrow if indicated. Continue intravenous antibiotics. Lovenox will begin in the morning. We will have dermatology see him as an outpatient. Dr. Valentin has been consulted to evaluate his thoracic spine compression injury.
[2018-11-09] MEDS: DOCUSATE SODIUM 100 MG CAP PO SCH ×2 (08:24→21:36)
[2018-11-09] MEDS: CYANOCOBALAMIN 500 MCG TABLET (VITAMIN B-12) PO SCH (08:24)
[2018-11-09] MEDS: ASPIRIN 81 MG ECTAB PO SCH (08:24)
[2018-11-09] MEDS: INSULIN ASPART 100 UNITS/ML 3 ML PEN SC SCH ×4 (08:25→21:35)
--- NOTE | 2018-11-09 08:58 | Anesthesiology Progress Note ---
Date of Service November 09, 2018 Anesthesia Post Procedure Vital Signs Vital Signs: Temp Pulse Pulse Pulse Pulse Resp BP 11/09/18 07:52 36.7 C 91 H 14 11/09/18 04:25 38.3 C H 11/09/18 03:16 38.0 C H 105 H 18 11/09/18 00:00 98 H 11/08/18 23:00 37.6 C H 102 H 20 11/08/18 20:00 37 C 90 20 11/08/18 15:42 86 11/08/18 15:34 37.3 C 77 19 11/08/18 15:15 37.3 C 89 11/08/18 14:55 88 19 109/67 11/08/18 14:50 83 21 113/71 11/08/18 14:46 36.8 C 11/08/18 14:45 84 21 116/66 11/08/18 14:40 86 21 11/08/18 14:35 89 20 134/69 11/08/18 14:30 87 21 129/71 11/08/18 14:25 85 25 H 138/71 11/08/18 14:20 90 25 H 131/67 11/08/18 14:15 82 25 H 122/76 11/08/18 14:10 88 20 134/73 11/08/18 14:07 36.4 C L 87 90 22 131/68 11/08/18 11:05 39.0 C H 141 H 20 11/08/18 10:39 39.1 C H 11/08/18 10:33 39.5 C H 140 H 140 H 11/08/18 10:00 101 H BP BP Pulse Ox 11/09/18 07:52 144/89 H 94 11/09/18 04:25 11/09/18 03:16 152/75 H 94 11/09/18 00:00 11/08/18 23:00 167/84 H 94 11/08/18 20:00 119/67 94 11/08/18 15:42 11/08/18 15:34 106/62 93 11/08/18 15:15 107/65 2 L 11/08/18 14:55 97 11/08/18 14:50 96 11/08/18 14:46 96 11/08/18 14:45 96 11/08/18 14:40 95 11/08/18 14:35 99 11/08/18 14:30 98 11/08/18 14:25 98 11/08/18 14:20 96 11/08/18 14:15 96 11/08/18 14:10 94 11/08/18 14:07 131/68 92 11/08/18 11:05 114/85 94 11/08/18 10:39 11/08/18 10:33 156/90 H 96 11/08/18 10:00 Pain Intensity Right Hip: Pain Intensity: 2 Notes Mental Status: alert / awake / arousable Patient Amnestic to Procedure: Yes Nausea / Vomiting: adequately controlled Pain: adequately controlled Airway Patency, RR, SpO2: stable & adequate BP & HR: stable & adequate Hydration State: stable & adequate Anesthetic Complications: no major complications apparent
--- NOTE | 2018-11-09 09:27 | History and Physical Report ---
DATE OF ADMISSION: 11/07/2018 HISTORY OF PRESENT ILLNESS: Gume is delightful, I met him this morning at approximately 7:30 a.m. I was asked to see him by Dr. Brandon Foss for his back issues. He was admitted a few days ago with a febrile illness and sepsis and infected right hip and Dr. Foss heroically was able to get him fixed up with an I&D of his right hip, I believe yesterday midafternoon. I am seeing the patient on rounds and fortunately he has no back pain at this time. He does have an interesting MRI scan showing an old compression fracture which is always concerning in light of the fact that he does not remember a true trauma. Currently, he denies any blurred vision, double vision, tinnitus, or vertigo. Denies any fevers, sweats, chills. PHYSICAL EXAMINATION: VITAL SIGNS: Blood pressure 144/89, pulse 90, respiratory rate is 14, 36.7 temperature. NEUROLOGIC: Intact, 5/5 strength, good sensation, motor ability, and reflex ability with no neuro deficit. DIAGNOSTIC DATA: X-rays reviewed in this case and MRI scan, he has a chronic mild compression fracture, L4 vertebral body, chronic compression fracture T11, which is concerning due to the fact that he did not remember a trauma. There is no apparent osteomyelitis of this involved entity nor tumor. IMPRESSION: Asymptomatic compression fracture of the spine. PLAN: At this point in time, I think the priority is just to get him over this febrile illness and hip infection. I should see him back in the office for followup, I would estimate in about 3-4 weeks. He does not need a brace at this time as he has no pain and I do not believe a biopsy is required. Follow up in 3 weeks in the office. They can call [phone].
[2018-11-09] MEDS: cefTRIAXone SODIUM 2,000 MG in DEXTROSE 5% 50 ML IV SCH (09:46)
--- NOTE | 2018-11-09 11:26 | Progress Note ---
DATE: 11/09/2018 Overall improved but soreness in the right hip. No other issues noted. He has been seen by Dr. Valentin and will follow up as an outpatient. We can also arrange some followup as an outpatient with dermatology. This is for the skin issues on his left arm. Fever of 38.3 today. Vital signs stable. Distal neurovascular intact. Able to flex the hip to about 45 degrees, but still has some discomfort. Drainage output is noted and the drain is pulled. Cultures are growing out staph. In the blood, it is sensitive staph. We will coordinate with medicine and ID regarding route of antibiotic and duration. PT, he can weight bear as tolerated with a walker. Recommend consideration of [facility] or inpatient rehab. Plan on changing dressing tomorrow. Continue IV antibiotics, Lovenox for DVT prophylaxis.
[2018-11-09] MEDS: HYDROmorphone INJ 1 MG/ML SYRINGE IV PRN ×2 (12:11→21:37)
[2018-11-09] MEDS: ENOXAPARIN INJ 30 MG/0.3 ML SYR SQ SCH (13:15)
--- NOTE | 2018-11-09 13:21 | Infectious Disease Progress Nt ---
Date of Service November 09, 2018 Assessment & Plan (1) Gram positive sepsis: continue rocephin, will stop dapto at this point. follow OR findings, will need echo. repeat blood cultures pending, suspect OR cultures will grow staph as well. will follow. Subjective pt seen in followup, doing well on abx. s/p I&D of right hip, culture pending rare gpc on gram stain, 110,340 wbc.blood cultures growing MSSA, repeat pending. less pain today, ate lunch. no f/c currenlty tmax 38.3. wbc 7. feeling better today, no abd pain, no n/v/d. Review of Systems Review of Systems: All systems reviewed & are unremarkable except as noted in HPI & below Physical Exam Constitutional: WD/WN, vitals as above Eyes: PERRL, conjunctivae normal, anicteric sclerae ENMT: external ear and nose normal, oropharynx normal Neck: normal visual inspection Respiratory: normal respiratory effort, lungs clear to auscultation Cardiovascular: RRR, no murmur, no edema Gastrointestinal (Abdomen): normal bowel sounds, soft, nontender, no hepatosplenomegaly Musculoskeletal: no cyanosis or clubbing, extremities motor strength 5/5 Head/Neck/Chest: + head abnormal to inspection, normocephalic and head atraumatic Extremities: extremities normal to inspection and + limited ROM of extremities (pain in right hip with movement) Skin: no rashes, warm and dry Psychiatric: A+Ox3, euthymic affect Results & Data Vital Signs (Past 12 Hours) Vital Signs Temp Pulse Resp BP BP Pulse Ox 11/09/18 11:27 37.1 C 101 H 19 144/75 H 94 11/09/18 07:52 36.7 C 91 H 14 144/89 H 94 11/09/18 04:25 38.3 C H 11/09/18 03:16 38.0 C H 105 H 18 152/75 H 94 Laboratory Results Microbiology 11/08/18 13:43 Hip,Right Gram Stain - Final 11/08/18 13:43 Hip,Right Aerobic and Anaerobic Culture - Preliminary Staphylococcus aureus 11/07/18 10:12 Blood Aerobic Blood Culture - Final Staphylococcus aureus 11/07/18 10:12 Blood Anaerobic Blood Culture - Final Staphylococcus aureus 11/07/18 10:12 Blood Aerobic Blood Culture - Final Staphylococcus aureus 11/07/18 10:12 Blood Anaerobic Blood Culture - Final Staphylococcus aureus PG Care Time/CCT Total # of Minutes Spent Total Time Spent with Patient: Total time spent is greater than 50% in coordination of care (as documented) at patient's floor/unit and/or counseling patient:
[2018-11-09] MEDS: DAPTOmycin 800 MG in SYRINGE 0 ML IV SCH (17:26)
--- NOTE | 2018-11-09 17:30 | Hospitalist Progress Note ---
Date of Service November 09, 2018 Assessment & Plan (1) Sepsis: Met sepsis criteria at presentation with temperature of 39.3 and tachycardia 120 Blood cultures were taken Started with intravenous ceftriaxone and daptomycin Daptomycin has been stopped Continue ceftriaxone as per ID recommendation (2) Gram positive sepsis: Blood culture came back positive for Staphylococcus aureus He has had dental procedure about 1 week to 10 days ago The source seems to be right hip joint Status post aspiration of right hip consistent with septic arthritis Blood culture and right hip aspirate are growing staph aureus MSSA Daptomycin has been discontinued Ceftriaxone has been continued ECHO: Normal left ventricular thickness and wall motion, LV is hyperdynamic with EF of more than 70%, RV is normal in size and function and there is no pericardial effusion. No mention about any vegetation Blood culture pending (3) Right hip pain: Right hip septic arthritis Has had hip pain for 5 or 6 days and was seen in outpatient Ortho clinic and was prescribed prednisone Condition did not improve MRI of the right hip did show probable septic arthritis Status post aspiration which showed deisi pus in aspirate Right hip incision and drainage done by orthopedic surgeon Appreciate Ortho input and recommendation Status post discontinuation of surgical drain Continue PT and OT Likely to need short-term rehab (4) Metabolic acidosis: This is a 73-year-old male who has significant past medical history of T2DM, nonproductive diabetic retinopathy, history of nephrolithiasis who presents to [facility] ED after suffering mechanical fall at home. In ED patient febrile temp 39.3, tachycardic 120, blood pressure stable Initial CO2 was 20 and creatinine 1.49 and lactic acid is elevated more than 3 Received intravenous fluid Renal function and CO2 level were normalized (5) Compression fx, thoracic spine: pt w/o acute complaint or pain CT of the femur and abdomen/pelvis showed severe compression fracture T1 new from prior moderate compression fracture L4 Remains stable now Has cholelithiasis No cholecystitis (6) Diabetes mellitus, type II: A1C 8.4 02/2018 on metformin and glipizide as outpt hold oral meds Blood sugar noted to be high more than 300 as an outpatient and is complicated by use of prednisone Intravenous insulin has been discontinued We will put him on a sliding scale insulin coverage We will get pharmacy consult for diabetic management (7) Hypertension: hold lisinopril in setting of sepsis monitor, blood pressure currently stable BP seems to be stable DVT prophylaxis Subcu Lovenox-has been started CODE STATUS Full for now Subjective 11/08 The patient was seen and examined in telemetry unit in presence of the He is admitted with fevers and increased right hip pain for about 5-6 days , denies trauma to area. Saw ortho in office on Thursday, given prednisone, has had a fall due to right hip pain, came to ER, in ER temp 39.6. creat 1.4, wbc 12, ESR >90. crp 8, procalcitonin normal. Underwent multiple imaging studies, ct/mri - T11 compression fracture noted, no discitis/osteo noted on MRI t and l spine. right hip MRI septic arthritis, no osteo. Still complains some pain in the right hip especially with any movement of right lower extremity Has had fever and chills as of yesterday 11/07 11/09 Patient was seen and examined in telemetry unit He has been complaining of pain right hip which has been minimally better Status post right incision and drainage for septic arthritis Denies any other symptoms of chest pain, shortness of breath palpitation, any fever and/or chills, abdominal pain, nausea or vomiting, Review of Systems Review of Systems: All systems reviewed and are unremarkable except as noted below Constitutional: + chills and + weakness Musculoskeletal: + joint pain (Right hip pain with any movement of the right lower extremity) Physical Exam Physical Exam: Lying in bed with discomfort secondary to pain in the right hip chest Constitutional: well developed, well nourished and + ill appearing Eyes: PERRL, conjunctivae normal, anicteric sclerae ENMT: external ear and nose normal, oropharynx normal Neck: trachea midline, no thyromegaly Respiratory: normal respiratory effort; no respiratory distress Aus cultation: lungs clear to auscultation bilaterally Cardiovascular: Rate/Rhythm: regular rate and regular rhythm Heart Sounds: no murmur Gastrointestinal (Abdomen): Inspection/Auscultation: abdomen normal to inspection Percussion/Palpation: abdomen soft Musculoskeletal: Hip: + surgical incision; no surgical drain present Right hip pain with movement of the right lower extremity Lymphatic: no cervical or axillary lymphadenopathy Results & Data Vital Signs (Past 12 Hours) Vital Signs Temp Pulse Pulse Resp BP BP Pulse Ox 11/09/18 16:08 37.7 C H 106 H 18 148/76 H 93 11/09/18 11:27 37.1 C 101 H 19 144/75 H 94 11/09/18 07:52 36.7 C 91 H 14 144/89 H 94 Laboratory Results Short CBC 11/09/18 Range/Units 06:16 WBC 7.77 (4.8-10.8) K/uL Hgb 10.8 L (14.0-18.0) g/dL Hct 32.3 L (42-52) % Plt Count 163 (130-400) K/uL BMP 11/09/18 06:16 Sodium 130 L Potassium 4.0 Chloride 100 Carbon Dioxide 20 L BUN 24 H Creatinine 1.08 Glucose 224 H Calcium 8.2 L Medications Administered Current Inpatient Medications Acetaminophen (Tylenol) 650 mg PO Q4H PRN PRN Reason: Pain or Fever Stop: 12/07/18 17:17 Last Admin: 11/09/18 03:30 Dose: 650 mg Documented by: Hydrocodone Bitart/Acetaminophen ([place] 5/325) 1 tab PO Q4H PRN PRN Reason: Pain Stop: 11/23/18 16:27 Aspirin (Ecotrin Ectab) 81 mg PO DAILY PORSHA Stop: 12/08/18 08:59 Last Admin: 11/09/18 08:24 Dose: 81 mg Documented by: Cyanocobalamin (Vitamin B-12) 1,000 mcg PO DAILY PORSHA Stop: 12/08/18 08:59 Last Admin: 11/09/18 08:24 Dose: 1,000 mcg Documented by: Dextrose (Dextrose 50%) 25 - 50 ml IV UD PRN; Protocol PRN Reason: Hypoglycemia Protocol Stop: 12/07/18 17:17 Docusate Sodium (Colace) 100 mg PO BID PORSHA Stop: 12/07/18 20:59 Last Admin: 11/09/18 08:24 Dose: 100 mg Documented by: Enoxaparin Sodium (Lovenox) 30 mg SQ Q12H PORSHA Stop: 12/09/18 11:59 Gadobutrol (Gadavist 65ml) 12.5 ml IV ONCE PRN PRN Reason: Interaction Checking Stop: 11/11/18 16:00 Last Admin: 11/07/18 16:02 Dose: 12.5 ml Documented by: Glucagon (Glucagen) 1 mg SQ UD PRN; Protocol PRN Reason: Hypoglycemia Protocol Stop: 12/07/18 17:17 Glucose (Glucose 40%) 15 - 30 gm PO UD PRN; Protocol PRN Reason: Hypoglycemia Protocol Stop: 12/07/18 17:17 Glucose (Dex4 Glucose) 4 - 8 tabs PO UD PRN; Protocol PRN Reason: Hypoglycemia Protocol Stop: 12/07/18 17:17 Hydromorphone HCl (Dilaudid) 1 mg IV Q2H PRN PRN Reason: Severe Pain Stop: 11/21/18 19:27 Last Admin: 11/09/18 12:11 Dose: 1 mg Documented by: Ceftriaxone Sodium 2,000 mg/ (Dextrose) 70 mls @ 140 mls/hr IV Q24H PORSHA Stop: 11/15/18 08:59 Last Infusion: 11/09/18 10:16 Dose: Infused Documented by: Lactated Ringer's (Lr) 1,000 mls @ 50 mls/hr IV .Q20H PORSHA Stop: 12/07/18 21:14 Last Admin: 11/09/18 04:25 Dose: 50 mls/hr Documented by: Insulin Aspart (Novolog Flexpen) 0 units SC ACHS PORSHA Stop: 12/08/18 16:29 Last Admin: 11/09/18 12:14 Dose: 16 units Documented by: Lorazepam (Ativan) 1 mg PO ONE PRN; Protocol PRN Reason: EtoH Withdrawal AWSS 6-10 Miscellaneous (Carbohydrates For Hypoglycemia) 15 - 30 gm PO UD PRN PRN Reason: Hypoglycemia Treatment Stop: 12/07/18 17:17 Miscellaneous Information (Pharmacy Consult) 1 ea N/A UD PRN PRN Reason: Consult Stop: 12/07/18 17:24 (1) Compression fx, thoracic spine Encounter type: initial encounter Thoracic vertebra fracture level: T11 Qualified Code(s): S22.080A - Wedge compression fracture of T11-T12 vertebra, initial encounter for closed fracture
[2018-11-09] MEDS: HYDROCODONE/ACETAMOPHEN 5/325MG TAB PO PRN (18:46)
[2018-11-10] MEDS: LACTATED RINGER'S 1,000 ML IV SCH ×2 (00:03→20:54)
[2018-11-10] MEDS: ENOXAPARIN INJ 30 MG/0.3 ML SYR SQ SCH ×2 (00:03→12:52)
[2018-11-10] MEDS: ACETAMINOPHEN 325 MG TAB PO PRN ×3 (05:54→19:35)
[2018-11-10 06:39] LABS: Eosinophils # (auto) 0.07 K/uL (0-0.5); Hematocrit (blood only) 35.3 % (42-52); Immature Granulocytes # (auto) 0.03 K/uL (0.00-0.02); Immature Granulocytes % (auto) 0.4 %; Lymphocytes # (auto) 0.88 K/uL (1.2-3.4); Lymphocytes % (auto) 12.3 %; Mean Corpuscular Hemoglobin 31.3 pg (25-34); Mean Corpuscular Volume 91.9 fL (80-100); Mean Platelet Volume 10.4 fL (7.4-10.4); Monocytes # (auto) 0.84 K/uL (0.11-0.59); Monocytes % (auto) 11.7 %; Neutrophils # (auto) 5.36 K/uL (1.4-6.5); Neutrophils % (auto) 74.6 %; Platelet Count 178 K/uL (130-400); RDW Coefficient of Variation 13.8 % (11.5-14.5); RDW Standard Deviation 46.5 fL (36.4-46.3); Red Blood Count 3.84 M/uL (4.7-6.1); White Blood Count 7.18 K/uL (4.8-10.8)
[2018-11-10 07:17] LABS: BUN Creatinine Ratio 19.9 (10-20); Calcium 8.9 mg/dl (8.5-10.1); Creatinine Clr Calc Pharmacy 90.1 ml/min; Est GFR (African American) 91.7; Est GFR (Non-African American) 79.1; Potassium 3.6 mmol/L (3.5-5.1)
[2018-11-10] MEDS: DOCUSATE SODIUM 100 MG CAP PO SCH ×2 (08:01→20:54)
[2018-11-10] MEDS: CYANOCOBALAMIN 500 MCG TABLET (VITAMIN B-12) PO SCH (08:01)
[2018-11-10] MEDS: ASPIRIN 81 MG ECTAB PO SCH (08:01)
[2018-11-10] MEDS: INSULIN ASPART 100 UNITS/ML 3 ML PEN SC SCH ×4 (08:08→20:55)
[2018-11-10] MEDS: cefTRIAXone SODIUM 2,000 MG in DEXTROSE 5% 50 ML IV SCH (08:11)
--- NOTE | 2018-11-10 10:19 | Orthopedic Progress Note ---
Date of Service November 10, 2018 Assessment & Plan (1) Septic arthritis of hip: Dressings changed today, new dressing applied. Keep covered x 4-5 days, then may uncover if no drainage. may be out of bed, weight bear as tolerated right hip Use walker to assist with ambulation Ice to right hip as needed for pain/swelling. May do full range of motion right hip as tolerated Antibiotics as per infectious disease Findings discussed with Dr. foss Disposition pending - possibly [facility] Follow up with Dr. Foss in approximately 10 days as an outpatient. Dressing change daily and PRN. Present on Admission?: Yes (2) Vitamin D deficiency: Patient informed. Will replenish with Vitamin D2 50,000 IU every week. First dose today, will recheck vitamin D as outpatient in approximately 6 weeks. Subjective Patient doing well, no pain at rest, still having pain with movement or weight bearing right hip. States every day is a little better. States that he feels "wiped out". Physical Exam Physical Exam: Right hip incision clean, dry, intact. Dressings removed and reapplied. grzegorz intact. no surrounding erythema or ecchymosis around incision. No active drainage. No seroma. Tolerates gentle passive ROM with log rolling and flexion and IR/ER of right hip with mild discomfort. Results & Data Vital Signs (Past 12 Hours) Vital Signs Temp Pulse Pulse Resp BP BP Pulse Ox 11/10/18 08:00 106 H 11/10/18 07:46 36.9 C 97 H 19 150/82 H 94 11/10/18 06:36 37.4 C 106 H 18 137/85 95 11/10/18 05:51 37.8 C H 102 H 20 157/92 H 95 11/10/18 03:24 36.7 C 95 H 20 168/95 H 95 11/10/18 03:18 36.7 C 99 H 20 185/109 H 96 11/09/18 23:18 36.9 C 93 H 18 128/77 93 Laboratory Results 11/10/18 11/10/18 11/09/18 Range/Units 05:49 05:49 20:29 WBC 7.18 (4.8-10.8) K/uL RBC 3.84 L (4.7-6.1) M/uL Hgb 12.0 L (14.0-18.0) g/dL Hct 35.3 L (42-52) % MCV 91.9 (80-100) fL MCH 31.3 (25-34) pg MCHC 34.0 (32-36) g/dL RDW Std Deviation 46.5 H (36.4-46.3) fL RDW Coeff of Edilia 13.8 (11.5-14.5) % Plt Count 178 (130-400) K/uL MPV 10.4 (7.4-10.4) fL Immature Gran % (Auto) 0.4 % Neut % (Auto) 74.6 % Lymph % (Auto) 12.3 % [place] % (Auto) 11.7 % Eos % (Auto) 1.0 % Baso % (Auto) 0.0 % Immature Gran # (Auto) 0.03 H (0.00-0.02) K/uL Neut # (Auto) 5.36 (1.4-6.5) K/uL Lymph # (Auto) 0.88 L (1.2-3.4) K/uL [place] # (Auto) 0.84 H (0.11-0.59) K/uL Eos # (Auto) 0.07 (0-0.5) K/uL Baso # (Auto) 0.00 (0-0.2) K/uL Sodium 132 L (136-145) mmol/L Potassium 3.6 (3.5-5.1) mmol/L Chloride 99 (98-107) mmol/L Carbon Dioxide 24 (21-32) mmol/L Anion Gap 9.0 (3-11) BUN 19 H (7-18) mg/dl Creatinine 0.95 (0.6-1.4) mg/dl Est Cr Clr Drug Dosing 90.1 ml/min Est GFR ( Amer) 91.7 Est GFR (Non-Af Amer) 79.1 BUN/Creatinine Ratio 19.9 (10-20) Glucose 231 H (70-99) mg/dl POC Glucose 264 H (70-99) Calcium 8.9 (8.5-10.1) mg/dl 11/09/18 11/09/18 Range/Units 16:56 11:22 WBC (4.8-10.8) K/uL RBC (4.7-6.1) M/uL Hgb (14.0-18.0) g/dL Hct (42-52) % MCV (80-100) fL MCH (25-34) pg MCHC (32-36) g/dL RDW Std Deviation (36.4-46.3) fL RDW Coeff of Edilia (11.5-14.5) % Plt Count (130-400) K/uL MPV (7.4-10.4) fL Immature Gran % (Auto) % Neut % (Auto) % Lymph % (Auto) % [place] % (Auto) % Eos % (Auto) % Baso % (Auto) % Immature Gran # (Auto) (0.00-0.02) K/uL Neut # (Auto) (1.4-6.5) K/uL Lymph # (Auto) (1.2-3.4) K/uL [place] # (Auto) (0.11-0.59) K/uL Eos # (Auto) (0-0.5) K/uL Baso # (Auto) (0-0.2) K/uL Sodium (136-145) mmol/L Potassium (3.5-5.1) mmol/L Chloride (98-107) mmol/L Carbon Dioxide (21-32) mmol/L Anion Gap (3-11) BUN (7-18) mg/dl Creatinine (0.6-1.4) mg/dl Est Cr Clr Drug Dosing ml/min Est GFR ( Amer) Est GFR (Non-Af Amer) BUN/Creatinine Ratio (10-20) Glucose (70-99) mg/dl POC Glucose 260 H 284 H (70-99) Calcium (8.5-10.1) mg/dl Vitamin D level 6 Diagnostic Findings Echo - no vegetation
--- NOTE | 2018-11-10 10:22 | Infectious Disease Progress Nt ---
Date of Service November 10, 2018 Assessment & Plan (1) Gram positive sepsis: continue rocephin. Repeat blood culture negative, if negative in am, ok for picc. OR culture with MSSA. would suggest 4 weeks IV rocephin, will need weekly cbc, cmp, esr while on abx. echo negative. will need outpatient ID followup as well. Subjective pt tolerating abx, OR and initial blood cultures 11/07 + MSSA, repeat cultures negative x 24h. Echo negative for vegetation. tmax 38 overnight ,afebrile this am. wbc 7, creat 0.9 Results & Data Vital Signs (Past 12 Hours) Vital Signs Temp Pulse Pulse Resp BP BP Pulse Ox 11/10/18 08:00 106 H 11/10/18 07:46 36.9 C 97 H 19 150/82 H 94 11/10/18 06:36 37.4 C 106 H 18 137/85 95 11/10/18 05:51 37.8 C H 102 H 20 157/92 H 95 11/10/18 03:24 36.7 C 95 H 20 168/95 H 95 11/10/18 03:18 36.7 C 99 H 20 185/109 H 96 11/09/18 23:18 36.9 C 93 H 18 128/77 93 Laboratory Results Microbiology 11/08/18 13:43 Hip,Right Gram Stain - Final 11/08/18 13:43 Hip,Right Aerobic and Anaerobic Culture - Preliminary Staphylococcus aureus 11/08/18 15:29 Blood Aerobic Blood Culture - Preliminary No growth in Aerobic bottle after 24 hours. 11/08/18 15:29 Blood Anaerobic Blood Culture - Preliminary No growth in Anaerobic bottle after 24 hours. 11/08/18 15:43 Blood Aerobic Blood Culture - Preliminary No growth in Aerobic bottle after 24 hours. 11/08/18 15:43 Blood Anaerobic Blood Culture - Preliminary No growth in Anaerobic bottle after 24 hours. 11/07/18 10:12 Blood Aerobic Blood Culture - Final Staphylococcus aureus 11/07/18 10:12 Blood Anaerobic Blood Culture - Final Staphylococcus aureus 11/07/18 10:12 Blood Aerobic Blood Culture - Final Staphylococcus aureus 11/07/18 10:12 Blood Anaerobic Blood Culture - Final Staphylococcus aureus PG Care Time/CCT Total # of Minutes Spent Total Time Spent with Patient: Total time spent is greater than 50% in coordination of care (as documented) at patient's floor/unit and/or counseling patient:
[2018-11-10] MEDS ORDERED: ERGOCALCIFEROL 50,000 UNITS CAP PO SCH (11:00)
--- NOTE | 2018-11-10 12:45 | Hospitalist Progress Note ---
Date of Service November 10, 2018 Assessment & Plan (1) Gram positive sepsis: Met sepsis criteria at presentation with temperature of 39.3 and tachycardia 120 S/p dental procedure about 1 week ago before admitting He has had dental procedure about 1 week to 10 days ago Blood culture on 11/07 grew MSSA Culture right hip I&D showed staph aureus ( MSSA) Status post aspiration of right hip consistent with septic arthritis Was started on Dapto and Rocephin Daptomycin has been discontinued Ceftriaxone has been continued Repeat blood cx on 11/08 showed no growth so far ECHO: Normal left ventricular thickness and wall motion LV is hyperdynamic with EF of more than 70% RV is normal in size and function and there is no pericardial effusion. No mention about any vegetation Will follow blood cx ID on board recommended 4 weeks IV rocephin Will need weekly cbc, cmp, esr while on abx. Will get PICC line for IV abx Follow up with ID as an outpatient (2) Right hip pain: Right hip septic arthritis Has had hip pain for 5 or 6 days and was seen in outpatient Ortho clinic and was prescribed prednisone Condition did not improve MRI of the right hip did show probable septic arthritis Status post aspiration which showed deisi pus in aspirate Right hip incision and drainage done by orthopedic surgeon Continue daily dressing change Weight bear as tolerated right hip Continue PT/OT Follow up with Dr. Foss in approximately 10 days as an outpatient. Continue PT and OT Will transfer to rehab (3) Metabolic acidosis: In ED patient febrile temp 39.3, tachycardic 120, blood pressure stable Initial CO2 was 20 and creatinine 1.49 and lactic acid is elevated more than 3 Received intravenous fluid Renal function and CO2 level were normalized Resolve (4) Compression fx, thoracic spine: CT of the femur and abdomen/pelvis showed severe compression fracture T1 new from prior moderate compression fracture L4 stable (5) Diabetes mellitus, type II: A1C 7.6 on 11/04 Continue to hold metformin and glipizide Continue sliding scale insulin coverage Continue monitor BS (6) Hypertension: BP elevated Will resume Lisinopril Monitor BP DVT prophylaxis Subcu on Lovenox CODE STATUS FULL CODE Disposition Will discharge home tomorrow Subjective Pt was seen and examined Lying in bed with no distress with family member Pt said that he feels fine He said that pain improves Denies any chest pain, palpitation, dizziness and SOB Physical Exam Physical Exam: General- No acute distress Head- atraumatic Eyes- PERRL, EOMI, ENT- oropharynx clear Neck- supple, no JVD Lungs- No wheezing Heart- regular rhythm; no murmur Abdomen- normal bowel sounds, soft, nontender Extremities- no calf tenderness Neuro- alert, oriented x 3; PERRL, EOMI; no facial palsy; no dysarthria Skin- warm & dry Results & Data Vital Signs (Past 12 Hours) Vital Signs Temp Pulse Pulse Resp BP BP Pulse Ox 11/10/18 11:59 37.2 C 101 H 18 160/85 H 96 11/10/18 08:00 106 H 11/10/18 07:46 36.9 C 97 H 19 150/82 H 94 11/10/18 06:36 37.4 C 106 H 18 137/85 95 11/10/18 05:51 37.8 C H 102 H 20 157/92 H 95 11/10/18 03:24 36.7 C 95 H 20 168/95 H 95 11/10/18 03:18 36.7 C 99 H 20 185/109 H 96 (1) Compression fx, thoracic spine Encounter type: initial encounter Thoracic vertebra fracture level: T11 Qualified Code(s): S22.080A - Wedge compression fracture of T11-T12 vertebra, initial encounter for closed fracture
[2018-11-10] MEDS: lisinopriL 20 MG TAB PO SCH (17:46)
[2018-11-10] MEDS: HYDROCODONE/ACETAMOPHEN 5/325MG TAB PO PRN (17:46)
[2018-11-10] MEDS: HYDROmorphone INJ 1 MG/ML SYRINGE IV PRN (20:56)
[2018-11-11] MEDS: ENOXAPARIN INJ 30 MG/0.3 ML SYR SQ SCH ×2 (00:36→12:07)
[2018-11-11] MEDS: ACETAMINOPHEN 325 MG TAB PO PRN (03:54)
[2018-11-11] MEDS: INSULIN ASPART 100 UNITS/ML 3 ML PEN SC SCH ×4 (08:35→20:50)
[2018-11-11] MEDS: cefTRIAXone SODIUM 2,000 MG in DEXTROSE 5% 50 ML IV SCH (09:45)
[2018-11-11] MEDS: ASPIRIN 81 MG ECTAB PO SCH (09:45)
[2018-11-11] MEDS: CYANOCOBALAMIN 500 MCG TABLET (VITAMIN B-12) PO SCH (09:45)
[2018-11-11] MEDS: lisinopriL 20 MG TAB PO SCH (09:46)
[2018-11-11] MEDS: DOCUSATE SODIUM 100 MG CAP PO SCH ×2 (09:50→20:03)
--- NOTE | 2018-11-11 12:07 | Progress Note ---
DATE: 11/11/2018 Resting comfortably in a chair. Did well with PT. Pain is much better compared to preoperatively and is gradually getting better postop. He is able to straighten his knee against gravity. His neurovascular function is grossly intact. The leg is not notably swollen. Repeat blood cultures are negative. The culture from the right hip at the time of surgery grew out methicillin-sensitive staph. He is on Rocephin and a PICC line is pending. He has septic arthritis of the right hip and sepsis. Also has diabetes. He should follow up with me in 7-10 days status post discharge. He will need PT and OT. Recommend transfer to long-term facility when bed available. He would be able to do range of motion of the hip and weightbear as tolerated with a walker. If there are any problems with his incision or worsening pain in the right hip, he could return to see me at any time. He would need pain medication, his antibiotics, a stool softener, and he should continue on his prophylactic Lovenox at least until his followup with me.
[2018-11-11] MEDS: HYDROCODONE/ACETAMOPHEN 5/325MG TAB PO PRN ×2 (12:15→20:03)
[2018-11-11] MEDS: LACTATED RINGER'S 1,000 ML IV SCH (15:42)
--- NOTE | 2018-11-11 19:40 | Hospitalist Progress Note ---
Date of Service November 11, 2018 Assessment & Plan (1) Gram positive sepsis: Met sepsis criteria at presentation with temperature of 39.3 and tachycardia 120 S/p dental procedure about 1 week ago before admitting He has had dental procedure about 1 week to 10 days ago Blood culture on 11/07 grew MSSA Culture right hip I&D showed staph aureus ( MSSA) Status post aspiration of right hip consistent with septic arthritis Was started on Dapto and Rocephin Daptomycin has been discontinued Ceftriaxone has been continued Repeat blood cx on 11/08 showed no growth so far ECHO: Normal left ventricular thickness and wall motion LV is hyperdynamic with EF of more than 70% RV is normal in size and function and there is no pericardial effusion. No mention about any vegetation Repeat blood cx no growth ID on board recommended 4 weeks IV rocephin Will need weekly cbc, cmp, esr while on abx. Will get PICC line for IV abx Follow up with ID as an outpatient (2) Right hip pain: Right hip septic arthritis Has had hip pain for 5 or 6 days and was seen in outpatient Ortho clinic and was prescribed prednisone Condition did not improve MRI of the right hip did show probable septic arthritis Status post aspiration which showed deisi pus in aspirate Right hip incision and drainage done by orthopedic surgeon Continue daily dressing change Weight bear as tolerated right hip Continue PT/OT Follow up with Dr. Foss in approximately 10 days as an outpatient. Continue PT and OT Continue Lovenox for DVT px until seeing ortho at next appt (3) Metabolic acidosis: In ED patient febrile temp 39.3, tachycardic 120, blood pressure stable Initial CO2 was 20 and creatinine 1.49 and lactic acid is elevated more than 3 Received intravenous fluid Renal function and CO2 level were normalized Resolve (4) Compression fx, thoracic spine: CT of the femur and abdomen/pelvis showed severe compression fracture T1 new from prior moderate compression fracture L4 stable (5) Diabetes mellitus, type II: A1C 7.6 on 11/04 Continue to hold metformin and glipizide Continue sliding scale insulin coverage Continue monitor BS (6) Hypertension: BP has been fluctuated Continue Lisinopril Monitor BP DVT prophylaxis Subcu on Lovenox CODE STATUS FULL CODE Disposition Will discharge home tomorrow to rehab Subjective Pt was seen and examined Lying in bed with no distress with at bedside Pt said that he is feeling much better today He said that he was able to move to the bathroom today Denies any chest pain, palpitation and SOB Physical Exam Physical Exam: General- No acute distress Head- atraumatic Eyes- PERRL, EOMI, ENT- oropharynx clear Neck- supple, no JVD Lungs- No wheezing Heart- regular rhythm; no murmur Abdomen- normal bowel sounds, soft, nontender Extremities- no calf tenderness Neuro- alert, oriented x 3; PERRL, EOMI; no facial palsy; no dysarthria Skin- warm & dry Results & Data Vital Signs (Past 12 Hours) Vital Signs Temp Pulse Pulse Resp BP BP Pulse Ox 11/11/18 19:13 37.9 C H 105 H 19 157/89 H 93 11/11/18 16:41 37.2 C 90 18 155/88 H 95 11/11/18 16:05 37.2 C 89 20 124/68 93 11/11/18 15:00 92 H 11/11/18 11:42 37.3 C 89 18 137/79 94 11/11/18 08:00 87 (1) Compression fx, thoracic spine Encounter type: initial encounter Thoracic vertebra fracture level: T11 Qualified Code(s): S22.080A - Wedge compression fracture of T11-T12 vertebra, initial encounter for closed fracture
[2018-11-12] MEDS: HYDROCODONE/ACETAMOPHEN 5/325MG TAB PO PRN (01:00)
[2018-11-12] MEDS: ENOXAPARIN INJ 30 MG/0.3 ML SYR SQ SCH ×2 (01:01→12:44)
[2018-11-12 06:36] LABS: Creatinine Clr Calc Pharmacy 98.8 ml/min; Est GFR (African American) 99.2; Est GFR (Non-African American) 85.6
[2018-11-12] MEDS: DOCUSATE SODIUM 100 MG CAP PO SCH (08:25)
[2018-11-12] MEDS: CYANOCOBALAMIN 500 MCG TABLET (VITAMIN B-12) PO SCH (08:25)
[2018-11-12] MEDS: ASPIRIN 81 MG ECTAB PO SCH (08:26)
[2018-11-12] MEDS: lisinopriL 20 MG TAB PO SCH (08:26)
[2018-11-12] MEDS: INSULIN ASPART 100 UNITS/ML 3 ML PEN SC SCH ×2 (08:26→12:44)
[2018-11-12] MEDS: cefTRIAXone SODIUM 2,000 MG in DEXTROSE 5% 50 ML IV SCH (08:33)
--- NOTE | 2018-11-12 10:30 | Hospitalist Progress Note ---
Date of Service November 12, 2018 Assessment & Plan (1) Gram positive sepsis: Met sepsis criteria at presentation with temperature of 39.3 and tachycardia 120 S/p dental procedure about 1 week ago before admitting He has had dental procedure about 1 week to 10 days ago Blood culture on 11/07 grew MSSA Culture right hip I&D showed staph aureus ( MSSA) Status post aspiration of right hip consistent with septic arthritis Was started on Dapto and Rocephin Daptomycin has been discontinued Ceftriaxone has been continued Repeat blood cx on 11/08 showed no growth so far ECHO: Normal left ventricular thickness and wall motion LV is hyperdynamic with EF of more than 70% RV is normal in size and function and there is no pericardial effusion. No mention about any vegetation Repeat blood cx no growth ID on board recommended 4 weeks IV rocephin US guided peripheral placed Will need weekly cbc, cmp, esr while on abx. Follow up with ID as an outpatient (2) Right hip pain: Right hip septic arthritis Has had hip pain for 5 or 6 days and was seen in outpatient Ortho clinic and was prescribed prednisone Condition did not improve MRI of the right hip did show probable septic arthritis Status post aspiration which showed deisi pus in aspirate Right hip incision and drainage done by orthopedic surgeon Continue daily dressing change Weight bear as tolerated right hip Continue PT/OT Follow up with Dr. Foss in approximately 7 days as an outpatient. Continue PT and OT Continue Lovenox for DVT px until seeing ortho at next appt (3) Metabolic acidosis: In ED patient febrile temp 39.3, tachycardic 120, blood pressure stable Initial CO2 was 20 and creatinine 1.49 and lactic acid is elevated more than 3 Received intravenous fluid Renal function and CO2 level were normalized Resolve (4) Compression fx, thoracic spine: CT of the femur and abdomen/pelvis showed severe compression fracture T1 new from prior moderate compression fracture L4 stable (5) Diabetes mellitus, type II: A1C 7.6 on 11/04 Continue to hold metformin and glipizide Continue sliding scale insulin coverage Continue monitor BS (6) Hypertension: BP has been fluctuated Continue Lisinopril Monitor BP DVT prophylaxis Subcu on Lovenox CODE STATUS FULL CODE Disposition Will discharge home today to [facility] Subjective Pt was seen and examined Lying in bed with no distress with at bedside Pt said that he is doing a little better He said that he continues to have pain in his right hip with movement Denies any chest pain, palpitation, dizziness and SOB Physical Exam Physical Exam: General- No acute distress Head- atraumatic Eyes- PERRL, EOMI, ENT- oropharynx clear Neck- supple, no JVD Lungs- No wheezing Heart- regular rhythm; no murmur Abdomen- normal bowel sounds, soft, nontender Extremities- no calf tenderness Neuro- alert, oriented x 3; PERRL, EOMI; no facial palsy; no dysarthria Skin- warm & dry Results & Data Vital Signs (Past 12 Hours) Vital Signs Temp Pulse Pulse Pulse Resp BP BP 11/12/18 07:56 36.9 C 88 20 125/77 11/12/18 03:21 36.5 C 89 18 133/67 11/12/18 00:00 98 H 11/11/18 23:15 37.3 C 96 H 18 146/73 H Pulse Ox 11/12/18 07:56 94 11/12/18 03:21 95 11/12/18 00:00 11/11/18 23:15 93 (1) Compression fx, thoracic spine Encounter type: initial encounter Thoracic vertebra fracture level: T11 Qualified Code(s): S22.080A - Wedge compression fracture of T11-T12 vertebra, initial encounter for closed fracture
--- NOTE | 2018-11-12 11:09 | Discharge Summary ---
Date of Service November 12, 2018 Admission HPI Per Admitting Provider This is a 73-year-old male who has significant past medical history of T2DM, nonproductive diabetic retinopathy, history of nephrolithiasis who presents to [facility] ED after suffering mechanical fall at home. Prior to arrival patient has been experiencing right hip pain, slipped and fell on right side. He was unable to get up on her own. EMS was therefore summoned. Unfortunately patient has been having significant, "right hip pain," for the past 5 days. No known trauma or injury. Pain started abruptly. Pain is located in right buttock region, constant, intensity waxes and wanes, worse with walking, improved with rest. Denies any radiation of pain or numbness or tingling to lower extremities. He denies any lightheadedness, loss of consciousness or syncope. His pain has been significantly worsening over the past 5 days, decreased ability to ambulate causing him to use walker. He feels the right outer aspect of his leg was very warm this morning and further complained of chills. He denies any documented fevers prior to arrival but does elicit to chills and sweats for the past day. Denies any lightheadedness any dizziness, headache, visual changes, hearing changes, sinus congestion, rhinorrhea, sore throat, cough, chest pain, shortness of breath, hemoptysis, emesis, abdominal pain, diarrhea, constipation, melena, hematochezia, dysuria, increased urgency with urination. Appetite has overall been diminished. He does get occasionally nauseated secondary to pain. He denies any deisi back pain. Had similar symptoms in past approximately 2 years ago when he had sciatica, but this was more located on the front of his right leg. He was seen by orthopedics Dr. Yin KOWALSKI on Thursday who took plain films without abnormality. There was concern for flare of sciatica so he was placed on prednisone taper in which he took 60 mg x 2 days. 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 No recent rashes. Did have dental cleaning 2 weeks ago. Denies IV drug use or vaping. Patient's and daughter are at bedside. Admission Exam Per Admitting Provider Constitutional: WD/WN, Tall, Male, appears ill, vitals as above, NAD, sitting up in bed, pleasant, conversing easily Head: Normocephalic, Atraumatic Eyes: PERRL, conjunctivae normal, anicteric sclerae ENMT: external ear and nose normal, oropharynx normal Neck: trachea midline, no thyromegaly normal visual inspection Respiratory: normal respiratory effort, lungs clear to auscultation, no wheeze, rales, rhonchi. Normal insp/exp effort, no accessory muscle use Cardiovascular: tachycardic rate, regular rhythm, no edema Vessels: no JVD or carotid bruit Chest: normal inspection of chest Abdomen: normal bowel sounds, soft, nontender, no hepatosplenomegaly Musculoskeletal: AROM/PROM to upper and LLE, strength 5/5. RLE decrease AROM with hip flexion/ext, knee flexion/extension due to pain. Good muscle tone, no spasticity, reflex +2, no cyanosis or clubbing, Skin: no rashes, warm, normal turgor Neurologic: PERRL, EOMI, accommodation nl, no face palsy, no dysarthria CN's II-XI intact bilaterally and moves all extremities Psychiatric: A+Ox3, euthymic affect Lymphatic: no cervical or axillary lymphadenopathy : deferred Principal Diagnosis Gram positive sepsis Right hip septic arthritis Metabolic acidosis Compression fx, thoracic spine Diabetes Hypertension Discharge Exam General- No acute distress Head- atraumatic Eyes- PERRL, EOMI, ENT- oropharynx clear Neck- supple, no JVD Lungs- No wheezing Heart- regular rhythm; no murmur Abdomen- normal bowel sounds, soft, nontender Extremities- no calf tenderness Neuro- alert, oriented x 3; PERRL, EOMI; no facial palsy; no dysarthria Skin- warm & dry Discharge Data Allergies Allergy/AdvReac Type Severity Reaction Status Date / Time No Known Allergies Allergy Unverified 11/07/18 10:25 Consultations 11/07/18 12:46 Consult Orthopedic Surgery Routine 11/07/18 17:18 Consult Infectious Diseases Routine 11/08/18 15:24 Consult Orthopedic Surgery Routine 11/09/18 11:15 Consult Case Management - Discharge Planning Routine Procedures Performed Operation Date: 11/08/18 07:40 Actual Procedures p Right Hip Incision and Drainage(Right) - Brandon Foss MD Ordered Studies 11/07/18 09:56 CT abd pelvis IV con only Stat CT femur RT w con Stat 11/07/18 12:46 MR hip RT wo/w con Stat MR thoracic spine wo/w con Stat 11/07/18 12:59 MR lumbar spine wo/w con Stat 11/07/18 13:10 MR pelvis wo/w con Stat 11/08/18 07:00 US gallbladder Routine ULTRASOUND RIGHT UPPER QUADRANT ABDOMEN CLINICAL HISTORY: Sepsis. Cholelithiasis. COMPARISON STUDY: Abdominal CT dated 11/07/2018. TECHNIQUE: Real-time, grayscale, and color flow sonography of the right upper quadrant of the abdomen was performed. Images are reviewed in the transverse and longitudinal planes. FINDINGS: Liver: The liver is enlarged measuring over 20 cm in length. The liver demonstrates heterogeneously increased echotexture indicating steatosis. There is no intrahepatic biliary ductal dilatation. The main portal vein is patent. Gallbladder: There are numerous shadowing calcified gallstones. There is no gallbladder wall thickening or pericholecystic fluid. A sonographic Fernandez's sign is reportedly absent. The common bile duct measures up to 0.4 cm in diameter. Pancreas: Visualized portions of the pancreatic head are normal in appearance. The majority of the pancreas was not well visualized. Right kidney: Survey images of the right kidney demonstrate normal size and echotexture. There is no hydronephrosis. Ascites: None. IMPRESSION: 1. Cholelithiasis without sonographic evidence of acute cholecystitis. 2. Hepatomegaly and hepatic steatosis. Electronically signed by: Per Hager M.D. 11/08/2018 7:10 AM Dictated: 11/08/1809 Transcribed: 11/08/18708 XR chest 1V portable HISTORY: sepsis COMPARISON: Chest 11/07/2018. FINDINGS: There are low lung volumes, unchanged. No pneumothorax. No pleural effusions. Mild elevation of the right hemidiaphragm is again noted. The heart is top normal in size. Bibasilar linear densities favor subsegmental atelectasis. This is also unchanged. There is mild pulmonary edema, unchanged. IMPRESSION: Low lung volumes with mild interstitial pulmonary edema, unchanged. Electronically signed by: Villa Hope M.D. 11/08/2018 7:42 AM Dictated: 11/08/18740 Transcribed: 11/08/18740 XR chest 1V portable CLINICAL HISTORY: 73 years-old Male presenting with congestion, hip pain, sepsis. TECHNIQUE: Portable upright AP view of the chest was obtained. COMPARISON: 11/07/2018 at 10:05 AM. FINDINGS: Low lung volumes. Cardiac silhouette mildly enlarged. Pulmonary vascular prominence has increased. Interlobular septal thickening may be present. Bibasilar opacities slightly increased in part due to vascular crowding. No large effusion or pneumothorax. Degenerative changes of the thoracic spine. Upper abdomen normal. IMPRESSION: 1. Worsening lung aeration with low lung volumes and hypoventilatory changes. 2. Worsened volume overload and congestive change. Developing pulmonary edema not excluded. Electronically signed by: Brandon Nettles M.D. 11/07/2018 9:40 PM Dictated: 11/07/188 Transcribed: 11/07/182137 MR pelvis wo/w con CLINICAL HISTORY: 73 years-old Male presenting with sepsis, right hip pain worsening over one week, now with fever. TECHNIQUE: Multisequence, multiplanar MR imaging of the pelvis was performed before and after the administration of intravenous contrast. IV contrast: 12.5 mL of Gadavist. COMPARISON: None. FINDINGS: Localizer images: Unremarkable. Edema noted in the region of the right hip involving the gluteus minimus and obturator externus. A small hip joint effusion is present with synovial thickening. Postcontrast imaging demonstrates significant synovial enhancement as well as enhancement of the surrounding edematous musculature. No abnormal enhancement of the bone marrow. Bone marrow signal is heterogeneous. Pelvic bone marrow is somewhat diffusely T2 hyperintense and T1 hypointense. Allowing for the diffuse degree of abnormality, the femoral heads and necks are grossly normal and bone marrow signal intensity. No fracture is apparent. Enlarged prostate. Bladder normal. Bilateral prominent subcentimeter lymph nodes and external iliac regions likely reactive. IMPRESSION: Findings highly suspicious for right hip joint inflammatory arthritis. This could represent septic arthritis or an aseptic reactive arthritis. No abnormal bone marrow signal intensity of the right femur or right acetabulum to raise concern for osteomyelitis. Orthopedic consultation is necessary. The report will be called/faxed according to standard departmental protocol for a critical finding.. Electronically signed by: Brandon Nettles M.D. 11/07/2018 4:38 PM Dictated: 11/07/18 1634 Transcribed: 11/07/18 163 MR lumbar spine wo/w con CLINICAL HISTORY: 73 years-old Male presenting with right hip pain worsening over the course of the week, now with fever, concern for discitis osteomyelitis. TECHNIQUE: Multisequence, multiplanar MR imaging of the lumbar spine was performed before and after the administration of intravenous contrast. IV contrast: 12.5 mL of Gadavist. COMPARISON: None. FINDINGS: Localizer images: Unremarkable. Normal lumbar lordosis. Mild height loss at L4 with an underlying benign hemangioma. Moderate to severe compression fracture at T11 with trace fluid or edema, overall subacute to chronic appearing. No acute osseous injury in the lumbar spine. Remaining vertebral body symmetry normal height, alignment, and bone marrow signal intensity. Mild diffuse intervertebral disc desiccation in the lumbar spine. There is mild height loss at L1-2 and L2-3. Additional multilevel degenerative changes further detail below: T12-L1: No significant neural foraminal or spinal canal narrowing. L1-2: Mild facet arthropathy and trace disc bulge. Moderate right and mild left neural foraminal narrowing. No significant spinal canal narrowing. L2-3: Annular fissure suspected. Mild facet arthropathy. Trace disc bulge mildly effaces the ventral thecal sac. Moderate bilateral neural foraminal narrowing. L3-4: Mild disc bulge and significant facet arthropathy and ligamentum flavum thickening. Moderate circumferential effacement of the thecal sac with trace residual CSF. Moderate to severe bilateral neural foraminal narrowing with suspected mass effect on the bilateral exiting L3 nerve roots. L4-5: Disc bulge, advanced facet arthropathy, and ligamentum flavum thickening severely effaces the thecal sac circumferentially. No residual CSF is appreci ated. Abutment of the bilateral exiting L4 nerve roots. Mild to moderate bilateral neural foraminal narrowing. L5-S1: Facet arthropathy and ligamentum flavum thickening. Mild disc bulge and suspected annular fissure. Mild effacement of the ventral thecal sac and abutment of the bilateral exiting L5 nerve roots. No paraspinal muscle edema. The spinal cord terminates in good position at the inferior endplate of T12. No epidural collection. Postcontrast imaging demonstrates no abnormal intervertebral disc or vertebral body enhancement. No abnormal spinal cord or cauda equina enhancement. Flow voids within the vasculature preserved. Remaining visualized soft tissues within normal limits. IMPRESSION: 1. No evidence of discitis osteomyelitis. 2. Chronic mild compression deformity of L4 and subacute to chronic severe compression deformity of T11. 3. Multilevel degenerative changes with severe spinal canal stenosis at L4-5. Correlate clinically for cauda equina impingement. 4. Multilevel neural foraminal narrowing as above. The report will be called/faxed according to standard departmental protocol. Electronically signed by: Brandon Nettles M.D. 11/07/2018 4:34 PM Dictated: 11/07/181626 Transcribed: 11/07/181626 MR thoracic spine wo/w con CLINICAL HISTORY: 73 years-old Male presenting with Sepsis, concern for diskitis, OM, right hip pain began Alyce morning worsening over the course of the week, now with fever and concern for infection. TECHNIQUE: Multisequence, multiplanar MR imaging of the thoracic spine was performed before and after the administration of intravenous contrast. IV contrast: 12.5 mL of Gadavist. COMPARISON: None. FINDINGS: Localizer images: Unremarkable. Moderate to severe compression deformity of T11. There is associated mild to m oderate retropulsion of the posterior cortex of T11. Mild bony edema is present. The T10-11 and T11-12 intervertebral disc demonstrate less dislocation than the remaining levels though there is no deisi fluid signal within the disks. No abnormal enhancement on postcontrast imaging. Incidental note made of a benign hemangioma in T10. Slightly focal kyphosis secondary to compression deformity at T11. There may be minimal anterior vertebral body height loss at T7. No evidence of bony edema or abnormal enhancement in this level consistent with a chronic minimal deformity. Remaining vertebral bodies demonstrate normal height, alignment and bone marrow signal intensity. Diffuse intervertebral disc desiccation with the exception of T10-11 and T11-12. Neural foraminal narrowing noted at T10-11, mild on the right and moderate to severe on the left. No significant narrowing at T11-12. Disc osteophyte complex at T8-9 results in mild effacement of the ventral thecal sac without contouring of the spinal cord. The retropulsion of T11 resulting in mild to moderate effacement of the ventral thecal sac also results in mild flattening of the spinal cord with preserved CSF. Limited evaluation for abnormal spinal cord signal at this level, which is not overtly present. No abnormal enhancement of the spinal cord. No evidence of an epidural collection. Thoracic spinal cord otherwise maintains normal morphology. T2 flow voids preserved. Remaining soft tissues within normal limits. IMPRESSION: 1. Subacute to chronic compression fracture of T11. Findings do not suggest discitis osteomyelitis. Resulting mild to moderate spinal canal stenosis. No convincing evidence of spinal cord impingement. 2. Neural foraminal narrowing at T10-11, left greater than right. 3. Degenerative changes at T8-9. Electronically signed by: Brandon Nettles M.D. 11/07/2018 4:02 PM Dictated: 11/07/18 1554 Transcribed: 11/07/18 1554 MR hip RT wo/w con CLINICAL HISTORY: 73 years-old Male presenting with R hip pain worsening over the week, now with fever. TECHNIQUE: Multisequence, multiplanar MR imaging of the right hip was performed before and after the administration of intravenous contrast. IV contrast: 12.5 mL of Gadavist. COMPARISON: None. FINDINGS: Localizer images: Unremarkable. Intrapelvic contents: Prominent bilateral external iliac lymph nodes. Prostatic enlargement likely indicating benign prostatic hyperplasia. Normal bladder. No free fluid in the pelvis. Bone marrow: Diffusely T1 hypointense and T2 hyperintense pelvic bone marrow. No focal abnormal bone marrow signal of the femoral heads or necks allowing for heterogeneity of the medullary bone. Articular cartilage: Articular cartilage preserved. Labrum: Acetabular labrum intact. No evidence of labral tear, chondrolabral separation or paralabral cyst. Bursae: No pathologic distention of the iliopsoas or trochanteric bursae. Joint effusion: Significant joint effusion within the right hip in comparison to the left. Synovial thickening may be present. Sciatic nerve: Normal appearance of the sciatic nerve. Muscle: Surrounding muscle edema in the region of the right hip involving the gluteus minimus muscle and right obturator internus among others. Fluid also tracks along the quadriceps muscle. Superficial soft tissue: No subcutaneous edema. IMPRESSION: 1. Findings highly suspicious for inflammatory changes of the right hip, most concerning for septic arthritis given the clinical history though this could alternatively represent an aseptic reactive arthritis. No abnormal bone marrow signal within the right femur raise concern for osteomyelitis. Orthopedic consultation recommended. 2. Diffusely abnormal pelvic bone marrow signal could reflect underlying red marrow reconversion or lymphoproliferative disease. The report will be called/faxed according to standard departmental protocol. Electronically signed by: Brandon Nettles M.D. 11/07/2018 4:43 PM Dictated: 11/07/18 1638 Transcribed: 11/07/[address] femur RT w con CLINICAL HISTORY: 73 years-old Male presenting with fever, right hip and right leg pain. TECHNIQUE: Multidetector CT of the right femur was performed after the adminis tration of intravenous contrast. IV contrast: 94 mL of Optiray 320. One or more dose lowering techniques were used consistent with the principles of ALARA (as low as reasonably achievable), including automatic exposure control, mA or kV adjustment to individual patient size, and/or use of iterative reconstruction. COMPARISON: Plain radiograph from 11/05/2018. CT DOSE (mGy.cm): The estimated cumulative dose is 1625.49 mGy.cm. FINDINGS: Pointing Machine Operator topogram: Unremarkable. Right hip joint and right knee joint congruent. No acute fracture. No malalignment. Mild osteophytosis at the hip joint may be present. Mild multicompartment osteophytosis at the knee joint. Subchondral cystic change noted at the superior acetabulum. The bony pelvis is intact within the visualized portion. Right sacroiliac joint congruent. Trace knee joint effusion.. Musculature of the right thigh is normal. No intramuscular hematoma. No collection. Atherosclerosis. Grossly patent vasculature. A right hydrocele may be present versus spermatocele. Remaining intrapelvic contents demonstrate an enlarged prostate and a circumferential bladder wall thickening. Small fat- containing right inguinal hernia. IMPRESSION: 1. No evidence of acute osseous injury or acute pathology in the right thigh. 2. Mild degenerative changes of the right hip and right knee. 3. Prostatomegaly with chronic bladder outlet obstruction. 4. Suspected right hydrocele or spermatocele. Electronically signed by: Brandon Nettles M.D. 11/07/2018 11:28 AM Dictated: 11/07/18 1123 Transcribed: 11/07/18 1123 XR chest 1V portable CLINICAL HISTORY: 73 years-old Male presenting with Sepsis. TECHNIQUE: Portable upright AP view of the chest was obtained. COMPARISON: 03/22/2014. FINDINGS: Mildly low lung volumes with prominence of the cardiac silhouette. Elevation of the right hemidiaphragm as on prior exam. Mild pulmonary vascular prominence. Chronic bandlike opacity at the right lung base. No new focal opacity. No large effusion or pneumothorax. Degenerative changes of the thoracic spine. Upper abdomen normal. IMPRESSION: 1. Low lung volumes with hypoventilatory changes and right basilar atelectasis or scarring. These are chronic findings. 2. Mild volume overload. No deisi pulmonary edema. 3. No focal infiltrate to suggest pneumonia. Electronically signed by: Brandon Nettles M.D. 11/07/2018 10:23 AM Dictated: 11/07/18 1022 Transcribed: 11/07/[address] abd pelvis IV con only CLINICAL HISTORY: 73 years-old Male presenting with fever, right leg pain, right hip pain, generalized abdominal pain. TECHNIQUE: Multidetector CT of the abdomen and pelvis was performed after the administration of intravenous contrast. IV contrast: 94 mL of Optiray 320. One or more dose lowering techniques were used consistent with the principles of ALARA (as low as reasonably achievable), including automatic exposure control, mA or kV adjustment to individual patient size, and/or use of iterative reconstruction. COMPARISON: 03/17/2014. CT DOSE (mGy.cm): The estimated cumulative dose is 1625.49. FINDINGS: Pointing Machine Operator topogram: Unremarkable. Lung bases: Mild multichamber enlargement of the heart. Coronary artery and aortic valve calcification. No pericardial or pleural effusion. Extensive bandlike opacities in the lungs with a dependent predominance likely atelectasis. Liver: Normal morphology. No liver lesion. Patent hepatic vasculature. Biliary: No intrahepatic or extrahepatic biliary ductal dilatation. Gallbladder contains gallstones. Pancreas: Mild parenchymal atrophy. Spleen: Normal. Adrenal glands: Normal. Kidneys and ureters: Moderate bilateral perinephric fat stranding. Normal. No hydronephrosis. Bladder: Normal. Pelvic organs: Prostate enlargement likely secondary to benign prostatic hyperplasia. Bowel: Normal appendix. No bowel obstruction. Peritoneal cavity: No free fluid or intraperitoneal gas. Lymph nodes: Multiple prominent retroperitoneal and pelvic lymph nodes, nonspecific and largely subcentimeter in short axis though few left. Aortic lymph nodes measure up to 11 mm. Vasculature: Atherosclerosis of the normal caliber abdominal aorta. IVC patent. Abdominal wall: Fat-containing bilateral inguinal hernias. Gynecomastia also noted. Musculoskeletal: Degenerative changes of the spine. Several old rib fractures noted. Severe compression fracture of T11. Moderate compression fracture of L4. IMPRESSION: 1. No acute intra-abdominal pathology. No CT explanation for the patient's fever within the abdomen or pelvis. 2. Severe compression fracture of T11 new from prior. Moderate compression fracture of L4 as on prior. 3. Cholelithiasis. Electronically signed by: Brandon Nettles M.D. 11/07/2018 11:21 AM Dictated: 11/07/18 1114 Transcribed: 11/07/18 1114 Hospital Course (1) Gram positive sepsis: Met sepsis criteria at presentation with temperature of 39.3 and tachycardia 120 S/p dental procedure about 1 week ago before admitting He has had dental procedure about 1 week to 10 days ago Blood culture on 11/07 grew MSSA Culture right hip I&D showed staph aureus ( MSSA) Abd us showed cholelithiasis without sonographic evidence of acute cholecystitis. CXR showed no focal infiltrate to suggest pneumonia. Status post aspiration of right hip consistent with septic arthritis Was started on Dapto and Rocephin Daptomycin has been discontinued Ceftriaxone has been continued Repeat blood cx on 11/08 showed no growth so far ECHO: Normal left ventricular thickness and wall motion LV is hyperdynamic with EF of more than 70% RV is normal in size and function and there is no pericardial effusion. No mention about any vegetation Repeat blood cx no growth ID on board recommended 4 weeks IV rocephin US guided peripheral placed Will need weekly cbc, cmp, esr while on abx. Follow up with ID as an outpatient (2) Right hip pain: Right hip septic arthritis Has had hip pain for 5 or 6 days and was seen in outpatient Ortho clinic and was prescribed prednisone Condition did not improve MRI of the right hip did show probable septic arthritis Status post aspiration which showed deisi pus in aspirate Right hip incision and drainage done by orthopedic surgeon Continue daily dressing change Weight bear as tolerated right hip Continue PT/OT Follow up with Dr. Foss in approximately 7 days as an outpatient. Continue PT and OT Continue Lovenox for DVT px until seeing ortho at next appt (3) Metabolic acidosis: In ED patient febrile temp 39.3, tachycardic 120, blood pressure stable Initial CO2 was 20 and creatinine 1.49 and lactic acid is elevated more than 3 Received intravenous fluid Renal function and CO2 level were normalized Resolve (4) Compression fx, thoracic spine: CT of the femur and abdomen/pelvis showed severe compression fracture T1 new from prior moderate compression fracture L4 stable (5) Diabetes mellitus, type II: A1C 7.6 on 11/04 Continue to hold metformin and glipizide Continue sliding scale insulin coverage Continue monitor BS (6) Hypertension: BP has been fluctuated Continue Lisinopril Monitor BP DVT prophylaxis Subcu on Lovenox CODE STATUS FULL CODE Disposition Will discharge home today to [facility] Total Time Total Time Spent Total Time Spent (In Minutes): 35 minutes Total Time Includes: Examination of the Patient, Discharge Planning, Medication Reconciliation, Communication With Other Providers and Other Discharge Plan Discharge Items Patient Disposition: Transfer [facility] Reason For Visit: SEPSIS Discharge Diagnosis: Gram positive sepsis Right hip septic arthritis Metabolic acidosis Compression fx, thoracic spine Diabetes Hypertension Activity: As commented below Non-emergency contact: Primary Care Provider and Surgeon Call non-emergency contact if: your pain is worsening, your temperature is above 101, your wound has increased redness and your wound has increased drainage Follow-up/Referrals: Brandon Dennison MD [Primary Care Provider] - Brandon Foss MD [Surgeon] - 11/22/18 12:15 pm Diet: Heart Healthy Luis Antonio Attending Provider Instructions: Follow up with your primary care provider Dr. Dennison on 11/17 @ 1:05 PM Follow up with orthopedic Dr. Foss in 1 week (Please call for the appointment) Follow up with infection disease Dr. Win (Please call for the appointment) Continue physical and occupational therapy Fall precaution Continue antibiotic infusion with Rocephin daily Check weekly cbc, cmp, esr while on IV rocephin Luis Antonio [employer] Provider Instructions: 1. Weight-bear as tolerated right hip. Use walker to assist with ambulation. 2. May do full range of motion of your right hip as tolerated. 3. PT/OT daily while in facility 4. Ice to right hip as needed for pain and swelling. 5. Keep dressings on right hip for 4 to 5 days after surgery. Then may remove dressing and cover as needed. Keep covered if any drainage to right hip. If drainage continues past Thursday or Thursday please call surgeon's office. 6. May shower beginning on November 13. Pat incision dry. Do not scrub or soak incision. Redress as needed. 7. Elevate right lower extremity as needed for pain and swelling. 8. Antibiotics as instructed by infectious disease. 9. Vitamin D 50,000 international units every week on Thursday x6 weeks. 10. Follow-up with Dr. Foss as instructed. 11. Call Dr. Foss's office with any drainage from your right hip incision, fevers, chills, worsening pain or questions. Stand-Alone Forms: My [facility] Skilled Items Patient informed of condition?: Yes DNR: No Discharge Level of Care: Skilled Communicable Disease: No Discharge Prognosis: Stable Lines: US Guided Peripheral IV Urinary Catheter: No Medications and DC Order Prescriptions: New ceftriaxone 2 gram recon soln 2 gm IV DAILY Qty: 28 RF: 0 ergocalciferol (vitamin D2) [Vitamin D2] 50,000 unit Capsule 50,000 unit PO Q7D@0900 Qty: 6 RF: 0 enoxaparin [Lovenox] 30 mg/0.3 mL Syringe 30 mg subcut Q12H 7 Days Qty: 4.2 RF: 0 hydrocodone-acetaminophen [[place]] 5-325 mg Tablet 1 tab PO Q6H PRN (Reason: pain, severe) Qty: 10 RF: 0 Continued glipizide 10 mg Tablet 10 mg PO BID Qty: 180 RF: 0 docusate sodium [Colace] 100 mg Capsule 100 mg PO BID Qty: 0 RF: 0 cyanocobalamin (vitamin B-12) [Vitamin B-12] 1,000 mcg Tablet 1,000 mcg PO DAILY Qty: 0 RF: 0 prednisone 20 mg Tablet 20 mg PO UD RF: 0 aspirin [Aspirin Low Dose] 81 mg Tablet,Delayed Release (Dr/Ec) 81 mg PO DAILY RF: 0 acetaminophen [Tylenol] 325 mg Capsule 325 mg PO Q6H PRN (Reason: Pain) RF: 0 lisinopril 20 mg tablet 20 mg PO DAILY RF: 0 metformin 1,000 mg tablet 1,000 mg PO BIDM RF: 0 metformin 1,000 mg tablet 500 mg PO 1200 RF: 0 Discharge Orders: Discharge Order (Routine); Ordered 11/12/18 Ordered By: Roxann Sewell Admission Data Admit Date/Time: 11/07/18 12:23 Attending Provider: Roxann Sewell Admit Provider: Federico Rosales Primary Care Provider: Brandon Dennison Other Providers: Federico Valentin ; Lex Sparrow ; Brandon Foss ; Frank Johnson
== END 2018-11-12 13:41 | DRG 854 ==
LOC: ED 09:43 → SUATTDRO 12:23 → 2S 12:23

== ENCOUNTER 2020-03-07 04:32 | Inpatient (IN) ==
--- NOTE | 2020-03-07 04:52 | Emergency Department Note ---
History of Present Illness General Chief complaint: Weakness Stated complaint: WEAK Time Seen by Provider: 03/07/20 04:33 Source: patient, family (), EMS, RN notes reviewed and old records reviewed Mode of arrival: EMS Limitations: altered mental status History of Present Illness Provider complaint: confused, weak Onset (ago): day(s) 2 Location: chest Radiation: back Severity: moderate Pain Consistency: + intermittent Current Pain Intensity: 5 Quality: + aching Relieved By: + immobilization and + rest Exacerbated By: + other (deep breaths) Associated symptoms: + confusion, + chest pain, + shortness of breath and + weakness; no fever/chills Treatments prior to arrival: none This is a 75-year-old male who has a history of sepsis as well as spine cancer. The patient stopped receiving chemotherapy however is receiving radiation therapy. The patient was sent in via EMS via his over concerns that he had become increasingly weak over the past 24 hours. The patient's gave him oxycodone for his pain this morning however the patient was unable to get up out of bed due to his weakness. In addition to the weakness he is also complaining of right-sided chest pain. The patient is also confused. The patient reports that the chest pain is made worse with a deep breath however immobilization and rest makes the chest pain better Home Medications Medication Instructions Recorded Confirmed Type glipizide 10 mg PO BID #180 03/20/14 03/07/20 History aspirin [Aspirin Low Dose] 325 mg PO BID 11/07/18 03/07/20 History lisinopril 20 mg PO DAILY 11/07/18 03/07/20 History cholecalciferol (vitamin D3) 50 mcg PO DAILY 03/07/20 03/07/20 History [Vitamin D3] cyanocobalamin (vitamin B-12) 1,000 mcg PO DAILY 03/07/20 03/07/20 History [Vitamin B-12] tramadol 50 mg PO Q8 PRN 03/07/20 03/07/20 History Allergies Allergy/AdvReac Type Severity Reaction Status Date / Time No Known Allergies Allergy Verified 03/07/20 04:55 Past Med/Surg History Medical History (Updated 03/08/20 @ 00:25 by Oswaldo Garcia MD) B12 deficiency Diabetes mellitus, type II Hypertension Kidney stones Metastatic disease NPDR (nonproliferative diabetic retinopathy) Sepsis Caused by right hip infection-no none etiology. Urinary tract infection Surgical History History of lithotripsy Family History Father Coronary heart disease, Onset Age: 74 Mother Dementia CHF (congestive heart failure) Social History Smoking Status: Former smoker Tobacco Type: Cigarettes Second Hand Exposure: No; Do You Dip or Chew Tobacco: No; Tobacco Cessation Education Requested by Patient: No Hx Alcohol Use: No Hx Substance Use: No Preferred Language: Persian Communication Ability: Effective Solar Panel Technician Required: No Beliefs That Will Affect Care: None marital status: Current Living Situation: Spouse Other Information That Helps Us Care for You: No Feels Safe at Home: Yes Safety Concerns: Feels Safe At This Time Assistive Devices: Glasses, Hearing Aid - Bilateral and Walker Review of Systems A total of 10 systems reviewed and were otherwise negative Physical Exam Vital Signs Vital Signs - 24 hr 03/07/20 04:37 03/07/20 04:40 03/07/20 04:43 Temperature 37.0 C Temperature Source Oral Pulse Rate 112 H 109 H 106 H Pulse Rate [Right Finger] Pulse Rate from SpO2 Sensor 112 H 110 H Respiratory Rate 23 20 18 Respiratory Effort / Characteristics Respiratory Depth Normal Blood Pressure 119/76 119/76 Blood Pressure [Right Arm] Blood Pressure Mean 86 90 Blood Pressure Mean [Right Arm] Blood Pressure Position Lying Blood Pressure Position [Right Arm] Pulse Oximetry 92 90 100 Oxygen Delivery Method Room Air Oxygen Flow Rate 2 Sepsis Recent Fever Within 48 Hours No Sepsis New/Unexplained Change in Mental Status No Sepsis Action Taken by Nursing No Action Required 03/07/20 04:50 03/07/20 04:51 03/07/20 05:00 Temperature Temperature Source Pulse Rate 106 H 105 H Pulse Rate [Right Finger] Pulse Rate from SpO2 Sensor 105 H 105 H Respiratory Rate 16 12 Respiratory Effort / Characteristics Non-Labored Respiratory Depth Blood Pressure 97/63 L Blood Pressure [Right Arm] Blood Pressure Mean 72 Blood Pressure Mean [Right Arm] Blood Pressure Position Blood Pressure Position [Right Arm] Pulse Oximetry 90 90 90 Oxygen Delivery Method Room Air Room Air Oxygen Flow Rate Sepsis Recent Fever Within 48 Hours Sepsis New/Unexplained Change in Mental Status Sepsis Action Taken by Nursing 03/07/20 05:10 03/07/20 05:11 03/07/20 05:32 Temperature Temperature Source Pulse Rate 103 H 107 H Pulse Rate [Right Finger] Pulse Rate from SpO2 Sensor 104 H Respiratory Rate 11 L 23 Respiratory Effort / Characteristics Non-Labored Respiratory Depth Blood Pressure 113/57 L Blood Pressure [Right Arm] Blood Pressure Mean 83 Blood Pressure Mean [Right Arm] Blood Pressure Position Blood Pressure Position [Right Arm] Pulse Oximetry 90 95 Oxygen Delivery Method Room Air Oxygen Flow Rate Sepsis Recent Fever Within 48 Hours Sepsis New/Unexplained Change in Mental Status Sepsis Action Taken by Nursing 03/07/20 05:38 03/07/20 05:40 03/07/20 05:50 Temperature Temperature Source Pulse Rate 101 H 101 H Pulse Rate [Right Finger] 102 H Pulse Rate from SpO2 Sensor 102 H 101 H Respiratory Rate 18 12 14 Respiratory Effort / Characteristics Respiratory Depth Normal Blood Pressure Blood Pressure [Right Arm] 113/57 L Blood Pressure Mean Blood Pressure Mean [Right Arm] 75 Blood Pressure Position Blood Pressure Position [Right Arm] Lying Pulse Oximetry 94 92 92 Oxygen Delivery Method Nasal Cannula Oxygen Flow Rate 2 Sepsis Recent Fever Within 48 Hours Sepsis New/Unexplained Change in Mental Status Sepsis Action Taken by Nursing 03/07/20 06:00 03/07/20 06:10 03/07/20 06:20 Temperature Temperature Source Pulse Rate 102 H 100 H 99 H Pulse Rate [Right Finger] Pulse Rate from SpO2 Sensor 103 H 101 H 99 H Respiratory Rate 15 19 14 Respiratory Effort / Characteristics Non-Labored Respiratory Depth Blood Pressure 103/61 Blood Pressure [Right Arm] Blood Pressure Mean 72 Blood Pressure Mean [Right Arm] Blood Pressure Position Blood Pressure Position [Right Arm] Pulse Oximetry 89 L 92 92 Oxygen Delivery Method Room Air Oxygen Flow Rate Sepsis Recent Fever Within 48 Hours Sepsis New/Unexplained Change in Mental Status Sepsis Action Taken by Nursing 03/07/20 06:30 03/07/20 06:40 03/07/20 06:50 Temperature Temperature Source Pulse Rate 100 H 101 H 101 H Pulse Rate [Right Finger] 101 H Pulse Rate from SpO2 Sensor 100 H 101 H 100 H Respiratory Rate 17 14 16 Respiratory Effort / Characteristics Non-Labored Respiratory Depth Normal Blood Pressure 108/65 Blood Pressure [Right Arm] 108/65 Blood Pressure Mean 71 Blood Pressure Mean [Right Arm] 79 Blood Pressure Position Blood Pressure Position [Right Arm] Lying Pulse Oximetry 92 93 94 Oxygen Delivery Method Nasal Cannula Nasal Cannula Oxygen Flow Rate 2 Sepsis Recent Fever Within 48 Hours Sepsis New/Unexplained Change in Mental Status Sepsis Action Taken by Nursing 03/07/20 07:00 03/07/20 07:10 03/07/20 07:20 Temperature Temperature Source Pulse Rate 98 H 100 H 101 H Pulse Rate [Right Finger] Pulse Rate from SpO2 Sensor 100 H 100 H 101 H Respiratory Rate 19 19 20 Respiratory Effort / Characteristics Respiratory Depth Blood Pressure 104/69 Blood Pressure [Right Arm] Blood Pressure Mean 74 Blood Pressure Mean [Right Arm] Blood Pressure Position Blood Pressure Position [Right Arm] Pulse Oximetry 91 96 95 Oxygen Delivery Method Oxygen Flow Rate Sepsis Recent Fever Within 48 Hours Sepsis New/Unexplained Change in Mental Status Sepsis Action Taken by Nursing 03/07/20 07:30 03/07/20 07:40 03/07/20 07:50 Temperature Temperature Source Pulse Rate 101 H 100 H 108 H Pulse Rate [Right Finger] Pulse Rate from SpO2 Sensor 100 H 101 H 109 H Respiratory Rate 22 20 20 Respiratory Effort / Characteristics Respiratory Depth Blood Pressure 119/71 Blood Pressure [Right Arm] Blood Pressure Mean 89 Blood Pressure Mean [Right Arm] Blood Pressure Position Blood Pressure Position [Right Arm] Pulse Oximetry 95 95 97 Oxygen Delivery Method Oxygen Flow Rate Sepsis Recent Fever Within 48 Hours Sepsis New/Unexplained Change in Mental Status Sepsis Action Taken by Nursing VITAL SIGNS - Vital signs and nursing notes were reviewed. GENERAL - 75-year-old male appearing stated age who is in no acute distress. cachectic in appearnce, pale SKIN - Without rashes. HEAD - NC/AT. EYES - PERRL with EOMI bilaterally. Sclera anicteric. Palpebral conjunctiva pink and moist with no injection noted. EARS - No deformities of external structures noted on gross examination bilaterally. No pain elicited with palpation of the tragus bilaterally. External auditory canals without discharge or otorrhea. Tympanic membranes pearly melendrez without retraction or bulging. No fluid or purulent material visualized behind the TM. Handle of malleus, umbo, cone of light, pars tensa/flaccid all easily visualized. NOSE - Midline and without cyanosis. No epistaxis or purulent drainage noted. Septum midline without deviation or septal hematoma noted. MOUTH/OROPHARYNX - Without perioral cyanosis. Buccal mucosa pink and moist and without leukoplakia. Tongue midline with equal elevation of palate bilaterally. No tonsillar hypertrophy, erythema, or exudates noted. dentition noted. NECK - Neck with FROM. Supple to palpation. lymphadenopathy noted. No nuchal rigidity. LUNGS - Chest wall symmetric without accessory muscle use, intercostals retractions, or central cyanosis. Normal vesicular breath sounds CTA B/L. No wheezes, rales, or rhonchi appreciated. CARDIAC - RRR with S1/S2. No murmur, rubs, or gallops appreciated. ABDOMEN - Abdominal contour without pulsations or visible masses. BS normoactive all four quadrants. No tenderness, palpable masses, hepatosplenomegaly, or ascites noted. EXTREMITIES - No clubbing or peripheral cyanosis. No pretibial edema present. +3/5 radial, posterior tibial, and dorsalis pedis pulses palpated throughout. +5/5 strength noted in UE/LE bilaterally. NEUROLOGIC - Cranial nerves II through XII grossly intact. Sensory intact to light touch throughout. Patellar reflexes +2/4. PSYCH - A&Ox3 and cooperates fully with examiner. Pt is very pleasant and interacts well with examiner. Course Administered Medications Enoxaparin Sodium (Enoxaparin Inj 30 Mg/0.3 Ml Syr) 30 mg SQ Q24H PORSHA Stop: 04/06/20 09:59 Last Admin: 03/07/20 10:17 Dose: Not Given Documented by: [id number] Ceftriaxone Sodium (Rocephin) 2,000 mg in 70 mls @ 140 mls/hr IV DAILY PORSHA Stop: 03/12/20 09:59 Last Infusion: 03/07/20 12:00 Dose: 0 mls/hr Documented by: [id number] Admin: 03/07/20 11:13 Dose: 140 mls/hr Documented by: [id number] Insulin Aspart (Insulin Aspart 100 Units/Ml 3 Ml Pen) 0 units SC ACHS PORSHA Stop: 04/06/20 11:29 Last Admin: 03/07/20 20:44 Dose: 2 units Documented by: [id number] Cosigned by: [id number] Admin: 03/07/20 17:25 Dose: 4 units Documented by: [id number] Cosigned by: [id number] Admin: 03/07/20 12:15 Dose: 4 units Documented by: [id number] Cosigned by: [id number] Morphine Sulfate (Morphine Sulfate 2 Mg/Ml Carp) 1 mg IV Q4 PRN PRN Reason: Pain Stop: 03/21/20 16:27 Last Admin: 03/07/20 23:38 Dose: 1 mg Documented by: [id number] Admin: 03/07/20 19:31 Dose: 1 mg Documented by: [id number] Discontinued Medications Acetaminophen (Acetaminophen 325 Mg Tab) 650 mg PO Q4H PRN PRN Reason: Pain or Fever Stop: 04/06/20 07:55 Last Admin: 03/07/20 16:08 Dose: 650 mg Documented by: [id number] Admin: 03/07/20 12:15 Dose: 650 mg Documented by: [id number] Dexamethasone (Dexamethasone Sod Inj 4 Mg/Ml Vial) 6 mg IV NOW STA Stop: 03/07/20 06:21 Last Admin: 03/07/20 06:38 Dose: Not Given Documented by: [id number] Guaifenesin/Codeine Phosphate (Guaifenesin/Codeine 100mg/10mg 5ml Udc) 10 ml PO NOW STA Stop: 03/07/20 16:28 Last Admin: 03/07/20 16:49 Dose: 10 ml Documented by: [id number] Sodium Chloride (Nss 1000ml) 1,000 mls @ 999 mls/hr IV .Q1H1M ONE Stop: 03/07/20 07:20 Last Infusion: 03/07/20 08:36 Dose: 0 mls/hr Documented by: [id number] Admin: 03/07/20 06:28 Dose: 999 mls/hr Documented by: [id number] Piperacillin Sod/Tazobactam Sod (Zosyn) 4.5 gm in 120 mls @ 240 mls/hr IV NOW ONE Stop: 03/07/20 06:49 Last Infusion: 03/07/20 07:08 Dose: 0 mls/hr Documented by: [id number] Admin: 03/07/20 06:28 Dose: 240 mls/hr Documented by: [id number] Levofloxacin/Dextrose (Levaquin/D5w) 750 mg in 150 mls @ 100 mls/hr IV NOW STA Stop: 03/07/20 07:49 Last Infusion: 03/07/20 08:36 Dose: 0 mls/hr Documented by: [id number] Admin: 03/07/20 06:51 Dose: 100 mls/hr Documented by: [id number] Daptomycin 500 mg/ Syringe 10 mls @ 5 mls/min IV NOW ONE; Protocol Stop: 03/07/20 06:21 Last Admin: 03/07/20 07:33 Dose: 5 mls/min Documented by: [id number] Sodium Chloride (Nss 1000ml) 1,000 mls @ 999 mls/hr IV .Q1H1M ONE Stop: 03/07/20 07:23 Last Infusion: 03/07/20 08:04 Dose: 0 mls/hr Documented by: [id number] Admin: 03/07/20 06:59 Dose: 999 mls/hr Documented by: [id number] Sodium Chloride (Nss 1000ml) 1,000 mls @ 80 mls/hr IV .[id number] PORSHA Stop: 03/07/20 20:29 Last Infusion: 03/07/20 23:28 Dose: 0 mls/hr Documented by: [id number] Infusion: 03/07/20 12:00 Dose: 80 mls/hr Documented by: [id number] Infusion: 03/07/20 11:15 Dose: 0 mls/hr Documented by: [id number] Admin: 03/07/20 10:06 Dose: 80 mls/hr Documented by: [id number] Magnesium Sulfate/Dextrose (Magnesium Sulfate / D5w) 1 gm in 100 mls @ 50 mls/hr IV ONE ONE Stop: 03/07/20 11:29 Last Infusion: 03/07/20 12:17 Dose: 0 mls/hr Documented by: [id number] Admin: 03/07/20 10:13 Dose: 50 mls/hr Documented by: [id number] Ioversol (Optiray 320 125ml) 125 ml IV ONCE ONE Stop: 03/07/20 05:38 Last Admin: 03/07/20 05:38 Dose: 93 ml Documented by: [id number] Medical Decision Making Differential Diagnosis Infection, dehydration, metabolic abnormality, hypo/hyperglycemia, electrolyte disturbance, anemia, hypoxia, cardiac sources, intracerebral event, toxicologic, neurologic, as well as other pathologies. Medical Records Attestation: I reviewed the patient's medical records. Home Medications Current Medication List: was personally reviewed by me Laboratory Data Attestation: I reviewed the patient's lab results. Result diagrams: 03/07/20 04:45 03/07/20 04:45 Lab Results 01/20/21 01/20/21 01/20/21 Range/Units 04:45 04:45 04:45 WBC 7.83 (4.8-10.8) K/uL RBC 4.33 L (4.7-6.1) M/uL Hgb 13.1 L (14.0-18.0) g/dL POC Hgb (14.0-18.0) g/dl Hct 39.3 L (42-52) % POC Hct (42-52) % MCV 90.8 (80-100) fL MCH 30.3 (25-34) pg MCHC 33.3 (32-36) g/dL RDW Std Deviation 47.3 H (36.4-46.3) fL RDW Coeff of Edilia 14.2 (11.5-14.5) % Plt Count 255 (130-400) K/uL MPV 10.7 H (7.4-10.4) fL Immature Gran % (Auto) 0.3 % Neut % (Auto) 67.8 % Lymph % (Auto) 19.5 % [place] % (Auto) 11.2 % Eos % (Auto) 0.9 % Baso % (Auto) 0.3 % Neut # (Auto) 5.31 (1.4-6.5) K/uL Lymph # (Auto) 1.53 (1.2-3.4) K/uL [place] # (Auto) 0.88 H (0.11-0.59) K/uL Eos # (Auto) 0.07 (0-0.5) K/uL Baso # (Auto) 0.02 (0-0.2) K/uL Immature Gran # (Auto) 0.02 (0.00-0.02) K/uL ESR > 90 H (0-14) mm/hr PT 13.7 H (9.0-12.0) Seconds INR 1.3 H (0.9-1.1) APTT 31.5 H (21.0-31.0) Seconds PTT Ratio 1.1 POC Sodium (135-144) mmol/L Sodium (136-145) mmol/L POC Potassium (3.3-5.0) mmol/L Potassium (3.5-5.1) mmol/L POC Chloride (101-112) mmol/L Chloride (98-107) mmol/L Carbon Dioxide (21-32) mmol/L POC Total CO2 (24-31) mmol/L Anion Gap (3-11) POC Anion Gap (16-25) mmol/L POC BUN (7-18) mg/dl BUN (7-18) mg/dl Creatinine (0.6-1.4) mg/dl POC Creatinine (0.6-1.3) mg/dl Est Cr Clr Drug Dosing ml/min Est GFR ( Amer) Est GFR (Non-Af Amer) BUN/Creatinine Ratio (10-20) Glucose (70-99) mg/dl POC Glucose (other) (70-99) mg/dl Estimat Average Glucose mg/dl Hemoglobin A1c (4.5-5.6) % Lactate (0.4-2.0) mmol/L Calcium (8.5-10.1) mg/dl POC Ioniz Calcium Shikha (1.12-1.32) mmol/l Phosphorus (2.5-4.9) mg/dl Magnesium (1.8-2.4) mg/dl Ferritin (8-388) ng/ml Total Bilirubin (0.2-1) mg/dl AST (15-37) U/L ALT (12-78) U/L Alkaline Phosphatase (45-117) U/L Lactate Dehydrogenase (87-241) U/L Troponin I (0-0.045) ng/ml C-Reactive Protein (0-0.29) mg/dl Total Protein (6.4-8.2) gm/dl Albumin (3.4-5.0) gm/dl Globulin (2.5-4.0) gm/dl Albumin/Globulin Ratio (0.9-2) Procalcitonin (0-0.5) ng/ml Urine Color Urine Appearance (Clear) Urine pH (4.5-7.5) Ur Specific Pruden (1.000-1.030) Urine Protein (Negative) Urine Glucose (UA) (Negative) Urine Ketones (Negative) Urine Blood (Negative) Urine Nitrite (Negative) Urine Bilirubin (Negative) Urine Urobilinogen (Negative) Ur Leukocyte Esterase (Negative) Urine WBC (Auto) (0-5) /hpf Urine RBC (Auto) (0-4) /hpf U Hyaline Cast (Auto) (0-5) /lpf U Epithel Cells (Auto) (0-5) /lpf Urine Bacteria (Auto) (Negative) Urine Sperm (None Prsent) COVID-19 Eval Order SARS-CoV-2 (PCR) (Negative) Influenza Type A (PCR) (Neg) Influenza Type B (PCR) (Neg) RSV (RT-PCR) (Neg) 03/07/20 03/07/20 03/07/20 Range/Units 04:45 04:45 04:45 WBC (4.8-10.8) K/uL RBC (4.7-6.1) M/uL Hgb (14.0-18.0) g/dL POC Hgb (14.0-18.0) g/dl Hct (42-52) % POC Hct (42-52) % MCV (80-100) fL MCH (25-34) pg MCHC (32-36) g/dL RDW Std Deviation (36.4-46.3) fL RDW Coeff of Edilia (11.5-14.5) % Plt Count (130-400) K/uL MPV (7.4-10.4) fL Immature Gran % (Auto) % Neut % (Auto) % Lymph % (Auto) % [place] % (Auto) % Eos % (Auto) % Baso % (Auto) % Neut # (Auto) (1.4-6.5) K/uL Lymph # (Auto) (1.2-3.4) K/uL [place] # (Auto) (0.11-0.59) K/uL Eos # (Auto) (0-0.5) K/uL Baso # (Auto) (0-0.2) K/uL Immature Gran # (Auto) (0.00-0.02) K/uL ESR (0-14) mm/hr PT (9.0-12.0) Seconds INR (0.9-1.1) APTT (21.0-31.0) Seconds PTT Ratio POC Sodium (135-144) mmol/L Sodium 130 L (136-145) mmol/L POC Potassium (3.3-5.0) mmol/L Potassium 5.1 (3.5-5.1) mmol/L POC Chloride (101-112) mmol/L Chloride 104 (98-107) mmol/L Carbon Dioxide 18 L (21-32) mmol/L POC Total CO2 (24-31) mmol/L Anion Gap 8.0 (3-11) POC Anion Gap (16-25) mmol/L POC BUN (7-18) mg/dl BUN 26 H (7-18) mg/dl Creatinine 1.32 (0.6-1.4) mg/dl POC Creatinine (0.6-1.3) mg/dl Est Cr Clr Drug Dosing 55.8 ml/min Est GFR ( Amer) 60.7 Est GFR (Non-Af Amer) 52.4 BUN/Creatinine Ratio 19.6 (10-20) Glucose 221 H (70-99) mg/dl POC Glucose (other) (70-99) mg/dl Estimat Average Glucose mg/dl Hemoglobin A1c (4.5-5.6) % Lactate (0.4-2.0) mmol/L Calcium 9.8 (8.5-10.1) mg/dl POC Ioniz Calcium Shikha (1.12-1.32) mmol/l Phosphorus (2.5-4.9) mg/dl Magnesium 1.7 L (1.8-2.4) mg/dl Ferritin 196.3 (8-388) ng/ml Total Bilirubin 2.0 H (0.2-1) mg/dl AST 227 H (15-37) U/L ALT 73 (12-78) U/L Alkaline Phosphatase 475 H (45-117) U/L Lactate Dehydrogenase 205 (87-241) U/L Troponin I < 0.015 (0-0.045) ng/ml C-Reactive Protein 10.60 H (0-0.29) mg/dl Total Protein 7.7 (6.4-8.2) gm/dl Albumin 2.3 L (3.4-5.0) gm/dl Globulin 5.4 H (2.5-4.0) gm/dl Albumin/Globulin Ratio 0.4 L (0.9-2) Procalcitonin 1.93 H (0-0.5) ng/ml Urine Color Urine Appearance (Clear) Urine pH (4.5-7.5) Ur Specific [place] (1.000-1.030) Urine Protein (Negative) Urine Glucose (UA) (Negative) Urine Ketones (Negative) Urine Blood (Negative) Urine Nitrite (Negative) Urine Bilirubin (Negative) Urine Urobilinogen (Negative) Ur Leukocyte Esterase (Negative) Urine WBC (Auto) (0-5) /hpf Urine RBC (Auto) (0-4) /hpf U Hyaline Cast (Auto) (0-5) /lpf U Epithel Cells (Auto) (0-5) /lpf Urine Bacteria (Auto) (Negative) Urine Sperm (None Prsent) COVID-19 Eval Order SARS-CoV-2 (PCR) (Negative) Influenza Type A (PCR) (Neg) Influenza Type B (PCR) (Neg) RSV (RT-PCR) (Neg) 03/07/20 03/07/20 03/07/20 Range/Units 04:45 04:45 04:50 WBC (4.8-10.8) K/uL RBC (4.7-6.1) M/uL Hgb (14.0-18.0) g/dL POC Hgb (14.0-18.0) g/dl Hct (42-52) % POC Hct (42-52) % MCV (80-100) fL MCH (25-34) pg MCHC (32-36) g/dL RDW Std Deviation (36.4-46.3) fL RDW Coeff of Edilia (11.5-14.5) % Plt Count (130-400) K/uL MPV (7.4-10.4) fL Immature Gran % (Auto) % Neut % (Auto) % Lymph % (Auto) % [place] % (Auto) % Eos % (Auto) % Baso % (Auto) % Neut # (Auto) (1.4-6.5) K/uL Lymph # (Auto) (1.2-3.4) K/uL [place] # (Auto) (0.11-0.59) K/uL Eos # (Auto) (0-0.5) K/uL Baso # (Auto) (0-0.2) K/uL Immature Gran # (Auto) (0.00-0.02) K/uL ESR (0-14) mm/hr PT (9.0-12.0) Seconds INR (0.9-1.1) APTT (21.0-31.0) Seconds PTT Ratio POC Sodium (135-144) mmol/L Sodium (136-145) mmol/L POC Potassium (3.3-5.0) mmol/L Potassium (3.5-5.1) mmol/L POC Chloride (101-112) mmol/L Chloride (98-107) mmol/L Carbon Dioxide (21-32) mmol/L POC Total CO2 (24-31) mmol/L Anion Gap (3-11) POC Anion Gap (16-25) mmol/L POC BUN (7-18) mg/dl BUN (7-18) mg/dl Creatinine (0.6-1.4) mg/dl POC Creatinine (0.6-1.3) mg/dl Est Cr Clr Drug Dosing ml/min Est GFR ( Amer) Est GFR (Non-Af Amer) BUN/Creatinine Ratio (10-20) Glucose (70-99) mg/dl POC Glucose (other) (70-99) mg/dl Estimat Average Glucose 214 mg/dl Hemoglobin A1c 9.1 H (4.5-5.6) % Lactate (0.4-2.0) mmol/L Calcium (8.5-10.1) mg/dl POC Ioniz Calcium Shikha (1.12-1.32) mmol/l Phosphorus 3.1 (2.5-4.9) mg/dl Magnesium (1.8-2.4) mg/dl Ferritin (8-388) ng/ml Total Bilirubin (0.2-1) mg/dl AST (15-37) U/L ALT (12-78) U/L Alkaline Phosphatase (45-117) U/L Lactate Dehydrogenase (87-241) U/L Troponin I (0-0.045) ng/ml C-Reactive Protein (0-0.29) mg/dl Total Protein (6.4-8.2) gm/dl Albumin (3.4-5.0) gm/dl Globulin (2.5-4.0) gm/dl Albumin/Globulin Ratio (0.9-2) Procalcitonin (0-0.5) ng/ml Urine Color Urine Appearance (Clear) Urine pH (4.5-7.5) Ur Specific [place] (1.000-1.030) Urine Protein (Negative) Urine Glucose (UA) (Negative) Urine Ketones (Negative) Urine Blood (Negative) Urine Nitrite (Negative) Urine Bilirubin (Negative) Urine Urobilinogen (Negative) Ur Leukocyte Esterase (Negative) Urine WBC (Auto) (0-5) /hpf Urine RBC (Auto) (0-4) /hpf U Hyaline Cast (Auto) (0-5) /lpf U Epithel Cells (Auto) (0-5) /lpf Urine Bacteria (Auto) (Negative) Urine Sperm (None Prsent) COVID-19 Eval Order CovFluRsv at [facility] SARS-CoV-2 (PCR) (Negative) Influenza Type A (PCR) (Neg) Influenza Type B (PCR) (Neg) RSV (RT-PCR) (Neg) 03/07/20 03/07/20 03/07/20 Range/Units 04:50 04:55 05:00 WBC (4.8-10.8) K/uL RBC (4.7-6.1) M/uL Hgb (14.0-18.0) g/dL POC Hgb 14.3 (14.0-18.0) g/dl Hct (42-52) % POC Hct 42 (42-52) % MCV (80-100) fL MCH (25-34) pg MCHC (32-36) g/dL RDW Std Deviation (36.4-46.3) fL RDW Coeff of Edilia (11.5-14.5) % Plt Count (130-400) K/uL MPV (7.4-10.4) fL Immature Gran % (Auto) % Neut % (Auto) % Lymph % (Auto) % [place] % (Auto) % Eos % (Auto) % Baso % (Auto) % Neut # (Auto) (1.4-6.5) K/uL Lymph # (Auto) (1.2-3.4) K/uL [place] # (Auto) (0.11-0.59) K/uL Eos # (Auto) (0-0.5) K/uL Baso # (Auto) (0-0.2) K/uL Immature Gran # (Auto) (0.00-0.02) K/uL ESR (0-14) mm/hr PT (9.0-12.0) Seconds INR (0.9-1.1) APTT (21.0-31.0) Seconds PTT Ratio POC Sodium 131 L (135-144) mmol/L Sodium (136-145) mmol/L POC Potassium 5.3 H (3.3-5.0) mmol/L Potassium (3.5-5.1) mmol/L POC Chloride 103 (101-112) mmol/L Chloride (98-107) mmol/L Carbon Dioxide (21-32) mmol/L POC Total CO2 19 L (24-31) mmol/L Anion Gap (3-11) POC Anion Gap 16.0 (16-25) mmol/L POC BUN 25 H (7-18) mg/dl BUN (7-18) mg/dl Creatinine (0.6-1.4) mg/dl POC Creatinine 1.2 (0.6-1.3) mg/dl Est Cr Clr Drug Dosing ml/min Est GFR ( Amer) Est GFR (Non-Af Amer) BUN/Creatinine Ratio (10-20) Glucose (70-99) mg/dl POC Glucose (other) 226 H (70-99) mg/dl Estimat Average Glucose mg/dl Hemoglobin A1c (4.5-5.6) % Lactate 1.5 (0.4-2.0) mmol/L Calcium (8.5-10.1) mg/dl POC Ioniz Calcium Shikha 1.28 (1.12-1.32) mmol/l Phosphorus (2.5-4.9) mg/dl Magnesium (1.8-2.4) mg/dl Ferritin (8-388) ng/ml Total Bilirubin (0.2-1) mg/dl AST (15-37) U/L ALT (12-78) U/L Alkaline Phosphatase (45-117) U/L Lactate Dehydrogenase (87-241) U/L Troponin I (0-0.045) ng/ml C-Reactive Protein (0-0.29) mg/dl Total Protein (6.4-8.2) gm/dl Albumin (3.4-5.0) gm/dl Globulin (2.5-4.0) gm/dl Albumin/Globulin Ratio (0.9-2) Procalcitonin (0-0.5) ng/ml Urine Color Urine Appearance (Clear) Urine pH (4.5-7.5) Ur Specific Pruden (1.000-1.030) Urine Protein (Negative) Urine Glucose (UA) (Negative) Urine Ketones (Negative) Urine Blood (Negative) Urine Nitrite (Negative) Urine Bilirubin (Negative) Urine Urobilinogen (Negative) Ur Leukocyte Esterase (Negative) Urine WBC (Auto) (0-5) /hpf Urine RBC (Auto) (0-4) /hpf U Hyaline Cast (Auto) (0-5) /lpf U Epithel Cells (Auto) (0-5) /lpf Urine Bacteria (Auto) (Negative) Urine Sperm (None Prsent) COVID-19 Eval Order SARS-CoV-2 (PCR) NEGATIVE (Negative) Influenza Type A (PCR) Negative (Neg) Influenza Type B (PCR) Negative (Neg) RSV (RT-PCR) Negative (Neg) 03/07/20 Range/Units 05:36 WBC (4.8-10.8) K/uL RBC (4.7-6.1) M/uL Hgb (14.0-18.0) g/dL POC Hgb (14.0-18.0) g/dl Hct (42-52) % POC Hct (42-52) % MCV (80-100) fL MCH (25-34) pg MCHC (32-36) g/dL RDW Std Deviation (36.4-46.3) fL RDW Coeff of Edilia (11.5-14.5) % Plt Count (130-400) K/uL MPV (7.4-10.4) fL Immature Gran % (Auto) % Neut % (Auto) % Lymph % (Auto) % [place] % (Auto) % Eos % (Auto) % Baso % (Auto) % Neut # (Auto) (1.4-6.5) K/uL Lymph # (Auto) (1.2-3.4) K/uL [place] # (Auto) (0.11-0.59) K/uL Eos # (Auto) (0-0.5) K/uL Baso # (Auto) (0-0.2) K/uL Immature Gran # (Auto) (0.00-0.02) K/uL ESR (0-14) mm/hr PT (9.0-12.0) Seconds INR (0.9-1.1) APTT (21.0-31.0) Seconds PTT Ratio POC Sodium (135-144) mmol/L Sodium (136-145) mmol/L POC Potassium (3.3-5.0) mmol/L Potassium (3.5-5.1) mmol/L POC Chloride (101-112) mmol/L Chloride (98-107) mmol/L Carbon Dioxide (21-32) mmol/L POC Total CO2 (24-31) mmol/L Anion Gap (3-11) POC Anion Gap (16-25) mmol/L POC BUN (7-18) mg/dl BUN (7-18) mg/dl Creatinine (0.6-1.4) mg/dl POC Creatinine (0.6-1.3) mg/dl Est Cr Clr Drug Dosing ml/min Est GFR ( Amer) Est GFR (Non-Af Amer) BUN/Creatinine Ratio (10-20) Glucose (70-99) mg/dl POC Glucose (other) (70-99) mg/dl Estimat Average Glucose mg/dl Hemoglobin A1c (4.5-5.6) % Lactate (0.4-2.0) mmol/L Calcium (8.5-10.1) mg/dl POC Ioniz Calcium Shikha (1.12-1.32) mmol/l Phosphorus (2.5-4.9) mg/dl Magnesium (1.8-2.4) mg/dl Ferritin (8-388) ng/ml Total Bilirubin (0.2-1) mg/dl AST (15-37) U/L ALT (12-78) U/L Alkaline Phosphatase (45-117) U/L Lactate Dehydrogenase (87-241) U/L Troponin I (0-0.045) ng/ml C-Reactive Protein (0-0.29) mg/dl Total Protein (6.4-8.2) gm/dl Albumin (3.4-5.0) gm/dl Globulin (2.5-4.0) gm/dl Albumin/Globulin Ratio (0.9-2) Procalcitonin (0-0.5) ng/ml Urine Color [place] Urine Appearance Cloudy A (Clear) Urine pH 5.0 (4.5-7.5) Ur Specific [place] 1.028 (1.000-1.030) Urine Protein Trace H (Negative) Urine Glucose (UA) 2+ H (Negative) Urine Ketones Trace H (Negative) Urine Blood Negative (Negative) Urine Nitrite Positive A (Negative) Urine Bilirubin 2+ H (Negative) Urine Urobilinogen Negative (Negative) Ur Leukocyte Esterase 1+ H (Negative) Urine WBC (Auto) 1-5 (0-5) /hpf Urine RBC (Auto) 0-4 (0-4) /hpf U Hyaline Cast (Auto) >30 H (0-5) /lpf U Epithel Cells (Auto) 5-10 H (0-5) /lpf Urine Bacteria (Auto) 2+ H (Negative) Urine Sperm Present A (None Prsent) COVID-19 Eval Order SARS-CoV-2 (PCR) (Negative) Influenza Type A (PCR) (Neg) Influenza Type B (PCR) (Neg) RSV (RT-PCR) (Neg) Imaging Data Radiologist's Impression: CT of the head: No acute or focal intracranial abnormalities. CTA chest: Numerous bilateral pulmonary masses or nodules likely representing metastasis. The largest measures up to 4 cm in diameter. Mediastinal and hilar adenopathy. No evidence of pulmonary emboli. Very heterogeneous appearance to the liver particularly the right lobe. This likely represents hepatic metastasis disease. Retrocrural lymphadenopathy. Compression fracture of the T12 vertebral body. ECG Data Attestation: I personally reviewed and interpreted this ECG as follows: Indication: + chest pain Rate (beats per minute): 107 Rhythm: + sinus tachycardia ECG Intervals/blocks: + Incomplete right bundle branch block and + Normal QT-c (421) ECG E[place]: + Normal ECG ST segments: + T-wave inversions (Anterior); no ST depression and no ST elevation ECG Findings: + Q waves (Inferior) Comparison ECG Date: from (11/08/2018) Change: the following changes noted (New t wave inversions) MDM Narrative Patient was seen and evaluated as above in room A4. Review was performed of nursing notes and vital signs. I did review pertinent previous visits and patient history. After obtaining a thorough history and physical examination the above work up was performed. This is a 75-year-old male who presents emergency department complaining of generalized weakness. The patient's potassium is elevated. He has not yet started receiving chemo or radiation for his cancer. The patient does appear to have a urinary tract infection therefore was started on broad-spectrum antibiotics. He originally arrived to the emergency department tachycardic and hypotensive. After a CAT scan confirmed that the patient did not have a PE he was started on fluids. Repeat examination revealed improvement the patient's symptoms. I did this did discuss the case with the hospitalist service who did agree to meet the patient. I did discuss the patient's presentation with the patient's via telephone. Both patient and are in agreement with the treatment plan. An order was placed for continuous cardiac monitoring. The monitor shows a rate of 106 with Normal SInus rhythm. The patient was evaluated during a period of high volume and high acuity while the hospital was at overcapacity during the global COVID-19 pandemic, and that diagnosis was suspected/considered upon their initial presentation. Their evaluation, treatment and testing was consistent with current guidelines for patients who present with complaints or symptoms that may be related to COVID- 19. Impression & Plan Weakness, UTI (urinary tract infection), Chest pain, Metastatic disease, Con fusion Discharge Plan Visit Data Chief Complaint: Weakness Stated Complaint: WEAK ED Provider: Oswaldo Garcia Discharge Problem: Weakness, UTI (urinary tract infection), Chest pain, Metastatic disease, Confusion Patient Disposition: Admitted As Inpatient Discharge Instructions Interventions: ED Discharge Assessment Last Done: 03/07/20 08:27 Discharge Problem: UTI (urinary tract infection) Qualifiers: Urinary tract infection type: site unspecified Hematuria presence: without hematuria Qualified Code(s): N39.0 - Urinary tract infection, site not specified Chest pain Qualifiers: Chest pain type: unspecified Qualified Code(s): R07.9 - Chest pain, unspecified Metastatic disease Qualifiers: Area of secondary neoplastic involvement: unspecified site Qualified Code(s): C79.9 - Secondary malignant neoplasm of unspecified site
[2020-03-07 04:53] LABS: Basophils # (auto) 0.02 K/uL (0-0.2); Basophils % (auto) 0.3 %; Eosinophils # (auto) 0.07 K/uL (0-0.5); Eosinophils % (auto) 0.9 %; Hematocrit (blood only) 39.3 % (42-52); Hemoglobin 13.1 g/dL (14.0-18.0); Immature Granulocytes # (auto) 0.02 K/uL (0.00-0.02); Immature Granulocytes % (auto) 0.3 %; Lymphocytes # (auto) 1.53 K/uL (1.2-3.4); Lymphocytes % (auto) 19.5 %; Mean Corpuscular Hemoglobin 30.3 pg (25-34); Mean Corpuscular Hgb Conc 33.3 g/dL (32-36); Mean Corpuscular Volume 90.8 fL (80-100); Mean Platelet Volume 10.7 fL (7.4-10.4); Monocytes # (auto) 0.88 K/uL (0.11-0.59); Monocytes % (auto) 11.2 %; Neutrophils # (auto) 5.31 K/uL (1.4-6.5); Neutrophils % (auto) 67.8 %; Platelet Count 255 K/uL (130-400); RDW Coefficient of Variation 14.2 % (11.5-14.5); RDW Standard Deviation 47.3 fL (36.4-46.3); Red Blood Count 4.33 M/uL (4.7-6.1); White Blood Count 7.83 K/uL (4.8-10.8)
[2020-03-07 05:05] LABS: INR 1.3 (0.9-1.1); Partial Thromboplastin Ratio 1.1; Partial Thromboplastin Time 31.5 Seconds (21.0-31.0); Prothrombin Time 13.7 Seconds (9.0-12.0)
[2020-03-07 05:14] LABS: Alanine Aminotransferase 73 U/L (12-78); Albumin Level 2.3 gm/dl (3.4-5.0); Aspartate Aminotransferase 227 U/L (15-37); BUN Creatinine Ratio 19.6 (10-20); Blood Urea Nitrogen 26 mg/dl (7-18); Calcium 9.8 mg/dl (8.5-10.1); Carbon Dioxide 18 mmol/L (21-32); Chloride 104 mmol/L (98-107); Creatinine Clr Calc Pharmacy 55.8 ml/min; Est GFR (African American) 60.7; Est GFR (Non-African American) 52.4; Glucose 221 mg/dl (70-99); Magnesium 1.7 mg/dl (1.8-2.4); Potassium 5.1 mmol/L (3.5-5.1); Sodium 130 mmol/L (136-145)
[2020-03-07 05:17] LABS: iSTAT Creatinine 1.2 mg/dl (0.6-1.3); iSTAT Hemoglobin 14.3 g/dl (14.0-18.0); iSTAT Ionized Calcium 1.28 mmol/l (1.12-1.32); iSTAT Potassium 5.3 mmol/L (3.3-5.0)
[2020-03-07 05:19] LABS: Albumin Globulin Ratio 0.4 (0.9-2); Alkaline Phosphatase 475 U/L (45-117); Ferritin 196.3 ng/ml (8-388); Globulin 5.4 gm/dl (2.5-4.0); Total Protein 7.7 gm/dl (6.4-8.2); Troponin I < 0.015 ng/ml (0-0.045)
[2020-03-07] MEDS ORDERED: OPTIRAY 320 125ml IV ONE (05:37)
[2020-03-07 05:42] LABS: Influenza A virus by PCR Negative (Neg); Influenza B virus by PCR Negative (Neg); RSV by PCR Negative (Neg); SARS CoV2 RNA(COVID-19) InHosp NEGATIVE (Negative)
[2020-03-07 05:55] LABS: Appearance Urine Cloudy (Clear); Blood Urine Negative (Negative); Color Urine Orange; Glucose Urine UA 2+ (Negative); Ketones Urine Trace (Negative); Leukocyte Esterase Urine 1+ (Negative); Nitrite Urine Positive (Negative); Protein Urine Trace (Negative); Specific Gravity Urine 1.028 (1.000-1.030); Urobilinogen Urine Negative (Negative)
[2020-03-07 06:04] LABS: Bilirubin Urine 2+ (Negative)
[2020-03-07] MEDS ORDERED: DEXAMETHASONE SOD INJ 4 MG/ML VIAL IV STA (06:20)
[2020-03-07] MEDS ORDERED: levoFLOXacin/D5W 750 MG/150 ML BAG IV STA (06:20)
[2020-03-07] MEDS ORDERED: PIPERACILLIN/TAZOBACTAM 4.5 GM/120 ML BAG IV ONE (06:20)
[2020-03-07] MEDS ORDERED: SODIUM CHLORIDE 0.9% 1000ML 1,000 ML IV ONE ×2 (06:20→06:23)
[2020-03-07] MEDS ORDERED: DAPTOmycin 500 MG in SYRINGE 0 ML IV ONE (06:20)
[2020-03-07] MEDS ORDERED: PIPERACILL/TAZOBAC CONSULT ACTIVE PRN (06:20)
[2020-03-07 06:26] LABS: Bacteria Urine Automated 2+ (Negative); Cast Urine Automated >30 /lpf (0-5); RBC Urine Automated 0-4 /hpf (0-4); Sperm Urine Present (None Prsent)
--- NOTE | 2020-03-07 07:12 | CT Scan Report ---
CT SCAN OF THE BRAIN WITHOUT IV CONTRAST CLINICAL HISTORY: Change in mental status. COMPARISON STUDY: No priors. TECHNIQUE: Unenhanced axial CT scan of the brain is performed from the vertex to the skull base. A do se lowering technique was utilized adhering to the principles of ALARA. CT DOSE: 1443.96 mGy.cm FINDINGS: Brain parenchyma: There are age-related involutional changes noting mild subcortical and periventric ular microangiopathic change. There is no hemorrhage, mass effect, or evidence of acute territorial i schemia by CT criteria. Melvin-white matter differentiation is preserved. No extra-axial fluid collecti on is seen. Ventricles, sulci, cisterns: Prominent secondary to involutional change. Intracranial vasculature: There is atherosclerotic calcification of the cavernous carotid and vertebr al arteries. Calvarium: Unremarkable. Sinuses and mastoids: The visualized paranasal sinuses are clear. The mastoid air cells are well pneu matized. Orbits: The bony orbits are grossly intact. IMPRESSION: There is no hemorrhage, mass effect, or evidence of acute territorial ischemia by CT crit niki. ACT 112: Negative or not required by law. Electronically signed by: Per Hager M.D. 03/07/2020 7:10 AM
--- NOTE | 2020-03-07 07:43 | CT Scan Report ---
CT ANGIOGRAM OF THE CHEST CLINICAL HISTORY: Generalized weakness. COMPARISON STUDY: Chest x-ray dated 11/08/2018. TECHNIQUE: Following the IV administration of 93 cc of Optiray 320, CT angiogram of the chest was per formed from the upper abdomen to the thoracic inlet utilizing the pulmonary embolus protocol. Images are reviewed in the axial, sagittal, and coronal planes. 3-D MIPS images are created and assessed. IV contrast was administered without complication. A dose lowering technique was utilized adhering to the principles of ALARA. FINDINGS: Thyroid: Imaged portions of the thyroid gland are normal in size and attenuation. Thoracic aorta: There is atherosclerotic calcification of the thoracic aorta, which is normal in moses juliocesar and demonstrates standard 3-vessel arch anatomy. No dissection is seen. Pulmonary vasculature: The pulmonary trunk is normal in caliber. There are no filling defects identif ied in main, lobar, or proximal segmental pulmonary branches to suggest pulmonary embolus. Evaluation of the peripheral branches is degraded by motion artifact. Heart: The heart is mildly enlarged and without pericardial effusion. There are coronary artery calci fications. Lungs and pleural spaces: Evaluation of the lung parenchyma is compromised by motion artifact. There are trace pleural effusions with dependent atelectasis. There are numerous pulmonary mass lesions. A left upper lobe lesion on image #163 measures 3.6 x 3.1 cm. A left lower lobe mass on image #149 jose alejandro ures 4.5 x 3.7 cm. The pleural-based lesion in the lingula on image #139 measures 2.6 cm. There are g reater than 20 additional subcentimeter pulmonary nodules scattered throughout both lungs. The trache a and central airways are clear. Elevation of the right hemidiaphragm is similar to previous. Mediastinum: There is mediastinal lymphadenopathy. A prevascular amy aggregate on image #186 measur es 3.9 x 2.3 cm. A node just above the esophageal hiatus on image #95 measures 1.6 x 1.7 cm. Yaquelin: There is bulky bilateral hilar adenopathy. A right hilar node on image #167 measures 2.6 x 1.9 cm and a left hilar node on image #161 measures 3.3 x 1.7 cm. Axillae: There are shotty axillary nodes. Upper abdomen: The liver is cirrhotic in morphology and heterogeneous in attenuation. A large heterog eneous an ill-defined low-attenuation or lesions is suggested in the right lobe. The spleen is enlarg ed measuring 15.6 cm in length. There is a small hiatal hernia. A left cardiophrenic lymph node measu res 3.5 x 2.3 cm. Upper abdominal lymphadenopathy is partially imaged. A gastrohepatic node on image #46 measures 1.6 x 1.3 cm. A retrocrural node on image #63 measures 2.1 x 1.6 cm. Skeletal structures: The skeletal structures are osteopenic. There is evidence of multifocal osteolyt ic metastatic disease. An osteolytic lesion in the body of the sternum is seen on image #113 with ass ociated pathologic fracture. There are rib lesions with associated pathologic fractures (right shore worker ior 7th rib image #127, left posterior 10th rib image #51). There are minimal superior endplate compr ession deformities of T5, T6, T7. There is an acute to subacute appearing compression fracture of T11 with moderate to severe loss of height and retropulsed fragments. This is likely pathologic. IMPRESSION: 1. There is no evidence of pulmonary embolus in the main, lobar, or proximal segmental pulmonary silvio rajani. Evaluation of the peripheral branches is degraded by motion artifact. 2. There is evidence of widespread metastatic disease. There are numerous hepatic masses, mediastinal , hilar, and upper abdominal lymphadenopathy, numerous pulmonary masses and nodules, as well as osteo lytic bone disease. 3. Cirrhotic liver morphology and splenomegaly. 4. Mild cardiomegaly and trace pleural effusions. 5. There are pathologic fractures of the body of the sternum, several ribs, and the T11 vertebral bod y. 6. Additional findings as above. ACT 112: Negative or not required by law. Electronically signed by: Per Hager M.D. 03/07/2020 7:41 AM
[2020-03-07] MEDS ORDERED: ONDANSETRON INJ 2 MG/ML 2 ML VIAL IV PRN (07:56)
[2020-03-07] MEDS ORDERED: POLYETHYLENE (MIRALAX) 17 GM PACK PO PRN (07:56)
[2020-03-07] MEDS ORDERED: SODIUM CHLORIDE 0.9% 1000ML 1,000 ML IV SCH (08:00)
--- NOTE | 2020-03-07 08:09 | History & Physical Report ---
Date of Service March 07, 2020 Assessment & Plan (1) Metastatic disease: metastatic Malignancy /possible Primary Hepatocellular CA with mets to lungs , bone , spine : hx of incresing back pain , chest pain , upper abdominal discomfort for about 2- 3 week, poor appetite with significant wt loss 30lb in past 6 months -recently diagnosed -on 02/16/2020: CT chest and abdomen pelvis with contrast - done in [facility] showing large 19 cm liver mass with underlying cirrhosis of liver , possibly of primary hepatocellular carcinoma with metastatic disease involving both lungs ( bilateral lung nodules ) Mediastinal involvement , intrathoracic and upper abdominal lymphadenopathy acute pathologic fracture of T10 possible due to bone mets pt was seen at Hematology /oncology clinic with Dr Savage Lopes on 03/06/20 : repeat CT chest /abdomen /pelvis on 03/01/20 : widespread mets of liver - paraesophageal lymph nodes , upper abdomen retroperitoneal lymph nodes measuring up to 1-2 cm innumerable bilateral lung nodes largest t3.2 cm/3.5 cm on left lower lobe 1.7 cm lesion on left femoral head mets to T12 /left post 10th rib -causing fx -compression Fx of T11 , mets to T 7-T 4 -right portal venous tumor thrombus over all prognosis extremely poor not a candidate for Chemo or radiation tx (2) Pathologic compression fracture of thoracic vertebra: due to above cont pain control pain management consulted (3) Confusion: presented with lethargy , confusion mental status improved to baseline possible metabolic encephalopathy with dehydration , UTI , metastatic liver ca with hyperbilirubinemia , recent narcotic pain meds CT head no acute change discussion of tx of UTI , pain mes discussed speparatly (4) UTI (urinary tract infection): cont IV Rocephin follow urine culture History of Present Illness Chief Complaint: confusion Primary Care Provider: Dr Brandon Winn This is an unfortunate 75 yo M who is diagnosed 2 weeks back with metastatic hepatocellular ca with mets to Lungs, mediastinal and abdominal lymph nodes , widespread bone mets had initial visit with Heme/onc Dr Lopes yesterday 03/06/20 pt continues to have severe pain due to bone metastasis , was prescribed Oxycodone 5 mg as needed for pain pt took oxycodone in evening , was sleeping on sofa , around 3 am pt woke up and attempted to go to bathroom , found him very confused ,in coherent , mumbling words , staggering gait 911 was called , in ER pt was hypotensive , BP improved after IV hydration CT head no acute change CT chest : 1. there is evidence of widespread metastatic disease. There are numerous hepatic masses, mediastinal, hilar, and upper abdominal lymphadenopathy, numerous pulmonary masses and nodules, as well as osteolytic bone disease. 2 . There are pathologic fractures of the body of the sternum, several ribs, and the T11 vertebral body. UA positive , during my time of interview , pt was awake and alert , does not recall the events prior to ER aware that he is in hospital , complains of pain on chest wall and bilateral ribs , pain is worse while taking deep breath and Daughter present at bedside -able to provide history Allergies Allergy/AdvReac Type Severity Reaction Status Date / Time No Known Allergies Allergy Verified 03/07/20 04:55 Home Medications Medication Instructions Recorded Confirmed Type glipizide 10 mg PO BID #180 03/20/14 03/07/20 History aspirin [Aspirin Low Dose] 325 mg PO BID 11/07/18 03/07/20 History lisinopril 20 mg PO DAILY 11/07/18 03/07/20 History cholecalciferol (vitamin D3) 50 mcg PO DAILY 03/07/20 03/07/20 History [Vitamin D3] cyanocobalamin (vitamin B-12) 1,000 mcg PO DAILY 03/07/20 03/07/20 History [Vitamin B-12] tramadol 50 mg PO Q8 PRN 03/07/20 03/07/20 History Past Med/Surg History Medical History (Updated 03/08/20 @ 08:53 by Randall Mcmanus PA-C) B12 deficiency Chest wall pain Diabetes mellitus, type II Hypertension Kidney stones Metastatic disease NPDR (nonproliferative diabetic retinopathy) Pathologic compression fracture of thoracic vertebra Pathologic rib fracture Pathologic sternal fracture Sepsis Caused by right hip infection-no none etiology. Urinary tract infection Surgical History History of lithotripsy Family History Father Coronary heart disease, Onset Age: 74 Mother Dementia CHF (congestive heart failure) Social History Smoking Status: Former smoker Tobacco Type: Cigarettes Second Hand Exposure: No; Do You Dip or Chew Tobacco: No; Tobacco Cessation Education Requested by Patient: No Hx Alcohol Use: No Hx Substance Use: No Preferred Language: Divehi Communication Ability: Effective Staff Accountant Required: No Beliefs That Will Affect Care: None marital status: Current Living Situation: Spouse Other Information That Helps Us Care for You: No Feels Safe at Home: Yes Safety Concerns: Feels Safe At This Time Assistive Devices: Glasses, Hearing Aid - Bilateral and Walker Physical Exam Constitutional: WD/WN, vitals as above ENMT: external ear and nose normal, oropharynx normal Neck: trachea midline, no thyromegaly Respiratory: normal respiratory effort, lungs clear to auscultation Cardiovascular: RRR, no murmur, no edema Gastrointestinal (Abdomen): normal bowel sounds, soft, nontender, no hepatosplenomegaly Skin: no rashes, warm and dry Neurologic: PERRL, EOMI, accommodation nl, no face palsy, no dysarthria Psychiatric: A+Ox3, euthymic affect Results & Data Results & Data ([facility]) Vital Signs (Past 12 Hours) Vital Signs Temp Pulse Pulse Resp BP BP Pulse Ox 03/07/20 08:00 103 H 18 117/85 95 03/07/20 07:50 108 H 20 97 03/07/20 07:40 100 H 20 95 03/07/20 07:30 101 H 22 119/71 95 03/07/20 07:20 101 H 20 95 03/07/20 07:10 100 H 19 96 03/07/20 07:00 98 H 19 104/69 91 03/07/20 06:50 101 H 16 94 03/07/20 06:40 101 H 101 H 14 108/65 93 03/07/20 06:30 100 H 17 108/65 92 03/07/20 06:20 99 H 14 92 03/07/20 06:10 100 H 19 92 03/07/20 06:00 102 H 15 103/61 89 L 03/07/20 05:50 101 H 14 92 03/07/20 05:40 101 H 12 92 03/07/20 05:38 102 H 18 113/57 L 94 03/07/20 05:32 107 H 23 113/57 L 03/07/20 05:11 95 03/07/20 05:10 103 H 11 L 90 03/07/20 05:00 105 H 12 97/63 L 90 03/07/20 04:51 90 03/07/20 04:50 106 H 16 90 03/07/20 04:43 37.0 C 106 H 18 119/76 100 03/07/20 04:40 109 H 20 90 03/07/20 04:37 112 H 23 119/[address] ANGIOGRAM OF CHEST : 03/07/20 IMPRESSION: 1. There is no evidence of pulmonary embolus in the main, lobar, or proximal segmental pulmonary arteries. Evaluation of the peripheral branches is degraded by motion artifact. 2. There is evidence of widespread metastatic disease. There are numerous hepatic masses, mediastinal, hilar, and upper abdominal lymphadenopathy, numerous pulmonary masses and nodules, as well as osteolytic bone disease. 3. Cirrhotic liver morphology and splenomegaly. 4. Mild cardiomegaly and trace pleural effusions. 5. There are pathologic fractures of the body of the sternum, several ribs, and the T11 vertebral body. 6. Additional findings as above. Code Status & VTE Plan VTE Prophylaxis Plan VTE Prophylaxis will be ordered: Yes (1) UTI (urinary tract infection) Hematuria presence: without hematuria Urinary tract infection type: site unspecified Qualified Code(s): N39.0 - Urinary tract infection, site not specified (2) Metastatic disease Area of secondary neoplastic involvement: unspecified site Qualified Code(s): C79.9 - Secondary malignant neoplasm of unspecified site
[2020-03-07 09:17] LABS: Estimated Average Glucose 214 mg/dl; Hemoglobin A1C 9.1 % (4.5-5.6)
[2020-03-07] MEDS ORDERED: DEXTROSE 50% 50 ML SYRINGE IV PRN (09:23)
[2020-03-07] MEDS ORDERED: CARBOHYDRATES FOR HYPOGLYCEMIA PO PRN (09:23)
[2020-03-07] MEDS ORDERED: GLUCOSE 40% GEL 15 GM TUBE PO PRN (09:23)
[2020-03-07] MEDS ORDERED: GLUCOSE 10 TABS/TUBE PO PRN (09:23)
[2020-03-07] MEDS ORDERED: GLUCAGON FOR INJ 1 MG VIAL SQ PRN (09:23)
[2020-03-07] MEDS ORDERED: MAGNESIUM SULFATE / D5W 1 GM/100 ML BAG IV ONE (09:30)
[2020-03-07] MEDS: ENOXAPARIN INJ 30 MG/0.3 ML SYR SQ SCH (10:17)
[2020-03-07] MEDS: cefTRIAXone SODIUM 2,000 MG/70 ML BAG IV SCH (11:13)
[2020-03-07] MEDS: ACETAMINOPHEN 325 MG TAB PO PRN ×2 (12:15→16:08)
[2020-03-07] MEDS: INSULIN ASPART 100 UNITS/ML 3 ML PEN SC SCH ×3 (12:15→20:44)
--- NOTE | 2020-03-07 14:27 | Radiation OncologyConsultation ---
Date of Consultation March 07, 2020 Assessment & Plan (1) Metastatic disease: Assessment: Mr. Cody is a 75-year-old gentleman who presents with metastatic disease of unknown primary. The patient was admitted to the hospital today due to altered mental status and bilateral lower extremity weakness. The patient did have a CT of head without contrast which was negative. The patient did have a CT of chest PE protocol which did reveal widespread metastatic disease involv ing the lungs, liver and bone. I have been asked to evaluate the patient regarding the role of radiation therapy. Recommendation: 1. Completion of staging work-up. CT of abdomen/pelvis. Bone scan. MRI brain with contrast. 2. Obtain tissue diagnosis. Diagnosis may be either made via CT-guided biopsy of one pleural-based masses or via endobronchial ultrasound FNA biopsy by pulmonary medicine. 3. Palliative care consultation. At this point, the priority should be to obtain a tissue diagnosis and complete the staging work-up. Conservative pain management with medication is warranted until we have more information. Plan: 1. No radiation therapy at this point until further information is obtained regarding tissue diagnosis and staging. 2. Continue pain management as per primary medical team. 3. We will continue to follow the patient and further discussed the case with the primary team when further results are obtained. 4. Patient and family encouraged to call us with any further questions or concerns. History of Present Illness Attending Physician: Meena Wong MD History of Present Illness 03/07/2020. Patient presents to emergency room due to weakness in extremities bilaterally and confusion. Patient now admitted to the hospital for further work-up and evaluation. 03/07/2020. CT of chest. IMPRESSION: 1. There is no evidence of pulmonary embolus in the main, lobar, or proximal segmental pulmonary arteries. Evaluation of the peripheral branches is degraded by motion artifact. 2. There is evidence of widespread metastatic disease. There are numerous hepatic masses, mediastinal, hilar, and upper abdominal lymphadenopathy, numerous pulmonary masses and nodules, as well as osteolytic bone disease. 3. Cirrhotic liver morphology and splenomegaly. 4. Mild cardiomegaly and trace pleural effusions. 5. There are pathologic fractures of the body of the sternum, several ribs, and the T11 vertebral body. 6. Additional findings as above. 03/07/2020. CT of head. IMPRESSION: There is no hemorrhage, mass effect, or evidence of acute territorial ischemia by CT criteria. Allergies Allergy/AdvReac Type Severity Reaction Status Date / Time No Known Allergies Allergy Verified 03/07/20 04:55 Home Medications Medication Instructions Recorded Confirmed Type glipizide 10 mg PO BID #180 03/20/14 03/07/20 History aspirin [Aspirin Low Dose] 325 mg PO BID 11/07/18 03/07/20 History lisinopril 20 mg PO DAILY 11/07/18 03/07/20 History cholecalciferol (vitamin D3) 50 mcg PO DAILY 03/07/20 03/07/20 History [Vitamin D3] cyanocobalamin (vitamin B-12) 1,000 mcg PO DAILY 03/07/20 03/07/20 History [Vitamin B-12] tramadol 50 mg PO Q8 PRN 03/07/20 03/07/20 History Patient History Medical History B12 deficiency Diabetes mellitus, type II Hypertension Kidney stones NPDR (nonproliferative diabetic retinopathy) Sepsis Caused by right hip infection-no none etiology. Urinary tract infection Surgical History History of lithotripsy Family History Father Coronary heart disease, Onset Age: 74 Mother Dementia CHF (congestive heart failure) Social History Smoking Status: Former smoker Tobacco Type: Cigarettes Second Hand Exposure: No; Do You Dip or Chew Tobacco: No; Tobacco Cessation Education Requested by Patient: No Hx Alcohol Use: No Hx Substance Use: No Preferred Language: Belarusian Communication Ability: Effective Unit Nurse Required: No Beliefs That Will Affect Care: None marital status: Current Living Situation: Spouse Other Information That Helps Us Care for You: No Feels Safe at Home: Yes Safety Concerns: Feels Safe At This Time Assistive Devices: Glasses, Hearing Aid - Bilateral and Walker Physical Exam Constitutional: WD/WN, vitals as above Skin: no rashes, warm and dry
[2020-03-07] MEDS ORDERED: guaiFENesin/CODEINE 100MG/10MG 5ML UDC PO STA (16:27)
[2020-03-07] MEDS: MoRPHine SULFATE 2 MG/ML CARP IV PRN ×2 (19:31→23:38)
--- NOTE | 2020-03-08 05:35 | Electrocardiogram Report ---
Test Reason : Blood Pressure : / mmHG Vent. Rate : 107 BPM Atrial Rate : 107 BPM P-R Int : 202 ms QRS Dur : 096 ms QT Int : 316 ms P-R-T Axes : 024 -22 -05 degrees QTc Int : 421 ms Sinus tachycardia Low voltage QRS Incomplete right bundle branch block Nonspecific T wave abnormality Inferior infarct (cited on or before 07-NOV-2018) Abnormal ECG When compared with ECG of 08-NOV-2018 08:43, Premature ventricular complexes are no longer Present Nonspecific T wave abnormality now evident in Anterior leads Confirmed by Ken Hernandez ([id number]) on 03/08/2020 5:34:46 AM Referred By: REFERRED SELF Confirmed By:Ken Hernandez
[2020-03-08 06:03] LABS: Hematocrit (blood only) 35.8 % (42-52); Hemoglobin 11.8 g/dL (14.0-18.0); Mean Corpuscular Hemoglobin 29.5 pg (25-34); Mean Corpuscular Volume 89.5 fL (80-100); Mean Platelet Volume 11.2 fL (7.4-10.4); Platelet Count 239 K/uL (130-400); RDW Coefficient of Variation 14.4 % (11.5-14.5); White Blood Count 5.85 K/uL (4.8-10.8)
[2020-03-08 06:11] LABS: INR 1.4 (0.9-1.1); Prothrombin Time 14.7 Seconds (9.0-12.0)
[2020-03-08 06:32] LABS: Albumin Level 1.9 gm/dl (3.4-5.0); BUN Creatinine Ratio 21.1 (10-20); Bilirubin Direct 0.9 mg/dl (0-0.2); Bilirubin,Total 1.6 mg/dl (0.2-1); Calcium 9.6 mg/dl (8.5-10.1); Creatinine Clr Calc Pharmacy 74.4 ml/min; Est GFR (Non-African American) 74.2; Magnesium 1.5 mg/dl (1.8-2.4); Potassium 4.7 mmol/L (3.5-5.1); Total Protein 6.8 gm/dl (6.4-8.2)
[2020-03-08] MEDS ORDERED: DAPTOmycin 300 MG in SYRINGE 0 ML IV SCH (08:00)
--- NOTE | 2020-03-08 08:57 | Pain Management Consultation ---
Date of Consultation March 08, 2020 Assessment & Plan (1) Metastatic disease: Area of secondary neoplastic involvement: unspecified site Qualified Code(s): C79.9 - Secondary malignant neoplasm of unspecified site (2) Pathologic rib fracture: (3) Pathologic sternal fracture: (4) Pathologic compression fracture of thoracic vertebra: (5) Chest wall pain: (6) UTI (urinary tract infection): * Patient has multiple pathologic fractures involving sternum, right posterior seventh rib, left posterior 10th rib, T11 vertebral body as well as minimal superior endplate compression deformities at T5, T6 and T7. Patient has new diagnosis of metastatic cancer of unknown primary. These findings are likely explaining his current pain complaints at this time. Treatment options were discussed. Patient is awaiting formal oncology evaluation for treatment recommendations. * Will initiate hydrocodone 5/325 mg 1 tablet p.o. every 6 hours as needed for breakthrough pain to assess efficacy/tolerability * Will initiate gabapentin 300 mg nightly titrating to 3 times daily over the next 3 days to initially assess tolerability * Patient is not currently a candidate for interventional treatment due to active UTI as well as pending formal oncology evaluation * Will need to consider addition of stool softener moving forward * Will continue to follow during inpatient hospitalization Urinary tract infection type: site unspecified Hematuria presence: without hematuria Qualified Code(s): N39.0 - Urinary tract infection, site not specified History of Present Illness Reason for Consultation: Bilateral anterior lateral chest wall pain Requesting Physician: Meena Wong MD Attending Physician: Meena Wong MD History of Present Illness Mr. Gordon is a 75-year-old white male who was admitted with complaints of weakness and mental confusion. Patient was found to have UTI and was also utilizing oxycodone for complaints of chest wall pain. The patient has a new diagnosis of metastatic cancer of unknown primary per review of the medical records and as reported by the patient. The patient reported some axial back pain over the past few months and [facility] with the patient and he underwent further scanning by his primary care physician-Dr. Winn in early February. There was discovery of cancerous findings involving the liver and lungs per his report. He has had no formal oncology evaluation per his report. Upon this admission there has been discovery of multiple bony metastatic lesions with pathologic fractures involving the sternum and several ribs. He also has minimal superior endplate compression deformities of T5, T6 and T7 as well as an acute to subacute compression fracture of T11 with moderate to severe loss of height and retropulsed fragments. Patient reports that he was utilizing tramadol in the outpatient setting for the chest wall pain complaint which was transitioned to oxycodone due to ineffectiveness of the tramadol. He reports that the oxycodone contributed to his confusion and weakness which led to his admission. Patient reports that his pain is in the bilateral lateral and anterior chest wall in the inframammary region. He describes the pain as aching and episodically sharp. His pain is exacerbated with any movement, deep breathing, coughing or sneezing activities. His pain is improved with rest. He has utilized IV morphine upon his admission which he feels has been somewhat helpful without notable side effects. He denies any significant axial thoracic back pain at this time. He rates his pain at a 4-8/10. He reports minimal midepigastric abdominal pain at this time. He is reportedly moving his bowels without constipation as he reported his last bowel movement within the past 24 hours. Patient reports a history of diabetes mellitus and a history of agent orange exposure while in [place] war while in the [place]. He is unable to recall the specifics regarding the reasonings of imaging that was completed by the [facility] in January. [place] and [facility] records were unavailable for review. The patient has a remote history of septic right hip in 2019. He has had no recent complications associated with this prior treatment. The patient denies any further constitutional complaints at this time. Plan of care discussed with Dr. Stephanie Staples. Pain Assessment Full Body Front + Back: 1. Right anterior lateral chest wall 2. Left anterior lateral chest wall Pain scale - at its best (0-10): 4 Pain scale - at its worst (0-10): 8 Allergies Allergy/AdvReac Type Severity Reaction Status Date / Time No Known Allergies Allergy Verified 03/07/20 04:55 Home Medications Medication Instructions Recorded Confirmed Type glipizide 10 mg PO BID #180 03/20/14 03/07/20 History aspirin [Aspirin Low Dose] 325 mg PO BID 11/07/18 03/07/20 History lisinopril 20 mg PO DAILY 11/07/18 03/07/20 History cholecalciferol (vitamin D3) 50 mcg PO DAILY 03/07/20 03/07/20 History [Vitamin D3] cyanocobalamin (vitamin B-12) 1,000 mcg PO DAILY 03/07/20 03/07/20 History [Vitamin B-12] tramadol 50 mg PO Q8 PRN 03/07/20 03/07/20 History Pain History Pain Intensity Pain scale - at its best (0-10): 4 Pain scale - at its worst (0-10): 8 Patient History Medical History (Updated 03/08/20 @ 08:53 by Randall Mcmanus PA-C) B12 deficiency Chest wall pain Diabetes mellitus, type II Hypertension Kidney stones Metastatic disease NPDR (nonproliferative diabetic retinopathy) Pathologic compression fracture of thoracic vertebra Pathologic rib fracture Pathologic sternal fracture Sepsis Caused by right hip infection-no none etiology. Urinary tract infection Surgical History History of lithotripsy Family History Father Coronary heart disease, Onset Age: 74 Mother Dementia CHF (congestive heart failure) Social History Smoking Status: Former smoker Tobacco Type: Cigarettes Second Hand Exposure: No; Do You Dip or Chew Tobacco: No; Tobacco Cessation Education Requested by Patient: No Hx Alcohol Use: No Hx Substance Use: No Preferred Language: Kenyan Communication Ability: Effective Pile Driving Setter Required: No Beliefs That Will Affect Care: None marital status: Current Living Situation: Spouse Other Information That Helps Us Care for You: No Feels Safe at Home: Yes Safety Concerns: Feels Safe At This Time Assistive Devices: Glasses, Hearing Aid - Bilateral and Walker Physical Exam Physical Exam: General: Patient sitting quietly in exam room in no acute distress. Speech and thought process appropriate. Mood and affect appropriate. Cognition intact. Patient was alert and oriented to time, person and place. Head: Normocephalic and atraumatic. ENT: No evidence of nasal or oral mucosal lesions. Mucous membranes are moist. Eyes: Pupils equal round reactive to light. Neck: Supple without adenopathy and full range of motion. Nontender to palpat ion over the midline. No focal facet joint tenderness provocative testing. Nontender to paravertebral or trapezius musculature. Chest: Nontender to palpation of the sternum or costosternal junction. Patient is tender along the lateral and anterior chest wall at approximate level of 6- 7th rib region and intercostal space. Patient is tender with AP and lateral compression of the chest wall. Abdomen: Soft and nondistended. No organomegaly. Bowel sounds active. Moderate tenderness in the midepigastric region. No rebound or guarding. Back/spine: Patient is moderately tender to palpation over the lower thoracic midline. Nontender to percussion. Nontender in the paravertebral musculature of the thoracolumbar spine. No focal facet joint tenderness of the thoracolumbar spine. No visible abnormalities. Limited range of motion. Lower extremities: Strength testing 5/5 and equal with dorsi and plantar flexion. Sensation intact without deficit. No evidence of edema, erythema or skin breakdown. Neurologic: Cranial nerves grossly intact. Ambulatory function not witnessed. Results (Pain Clinic) Diagnostic Review CT: non enhanced and reports reviewed CT Findings: [facility], [id number] CT Scan Report Patient: MORGAN GORDON AAdmit Date: 03/07/20#: [id number]: [address] [facility] ID:[id number]: Date: [address] [place] [address] Zip: [place], [place] [address]Alr: 75Location: EDSex: MRoom/Bed:Att Phy:Diagnosis: WEAKPri Phy: PCP,NOService Date: 03/07/20Fa Phy:Interpreting Phy: Per Hager MDAdmit Phy: Ordering Phy: Oswaldo Garcia MD cc: ~ CT SCAN OF THE BRAIN WITHOUT IV CONTRAST CLINICAL HISTORY: Change in mental status. COMPARISON STUDY: No priors. TECHNIQUE: Unenhanced axial CT scan of the brain is performed from the vertex to the skull base. A dose lowering technique was utilized adhering to the principles of ALARA. CT DOSE: 1443.96 mGy.cm FINDINGS: Brain parenchyma: There are age-related involutional changes noting mild subcortical and periventricular microangiopathic change. There is no hemorrhage, mass effect, or evidence of acute territorial ischemia by CT criteria. Melvin- white matter differentiation is preserved. No extra-axial fluid collection is seen. Ventricles, sulci, cisterns: Prominent secondary to involutional change. Intracranial vasculature: There is atherosclerotic calcification of the cavernous carotid and vertebral arteries. Calvarium: Unremarkable. Sinuses and mastoids: The visualized paranasal sinuses are clear. The mastoid air cells are well pneumatized. Orbits: The bony orbits are grossly intact. IMPRESSION: There is no hemorrhage, mass effect, or evidence of acute territorial ischemia by CT criteria. ACT 112: Negative or not required by law. Electronically signed by: Per Hager M.D. 03/07/2020 7:10 AM Dictated: 03/07/20 0709Transcribed: 03/07/20 0709 MORGAN GORDON 75 M 1945 [facility], [id number] CT Scan Report Patient: MORGAN GORDON AAdmit Date: 03/07/20#: [id number]: [address] [facility] ID:[id number]: Date: [address] [place] [address] Zip: [place], [place] [address]Vvd: [address]Location: EDSex: MRoom/Bed:Att Phy:Diagnosis: WEAKPri Phy: PCP,NOService Date: 03/07/20Fam Phy:Interpreting Phy: Per Hager MDAdmit Phy: Ordering Phy: Oswaldo Garcia MD cc: ~ CT ANGIOGRAM OF THE CHEST CLINICAL HISTORY: Generalized weakness. COMPARISON STUDY: Chest x-ray dated 11/08/2018. TECHNIQUE: Following the IV administration of 93 cc of Optiray 320, CT angiogram of the chest was performed from the upper abdomen to the thoracic inlet utilizing the pulmonary embolus protocol. Images are reviewed in the axial, sagittal, and coronal planes. 3-D MIPS images are created and assessed. IV contrast was administered without complication. A dose lowering technique was utilized adhering to the principles of ALARA. FINDINGS: Thyroid: Imaged portions of the thyroid gland are normal in size and attenuation. Thoracic aorta: There is atherosclerotic calcification of the thoracic aorta, which is normal in caliber and demonstrates standard 3-vessel arch anatomy. No dissection is seen. Pulmonary vasculature: The pulmonary trunk is normal in caliber. There are no filling defects identified in main, lobar, or proximal segmental pulmonary branches to suggest pulmonary embolus. Evaluation of the peripheral branches is degraded by motion artifact. Heart: The heart is mildly enlarged and without pericardial effusion. There are coronary artery calcifications. Lungs and pleural spaces: Evaluation of the lung parenchyma is compromised by motion artifact. There are trace pleural effusions with dependent atelectasis. There are numerous pulmonary mass lesions. A left upper lobe lesion on image #163 measures 3.6 x 3.1 cm. A left lower lobe mass on image #149 measures 4.5 x 3.7 cm. The pleural-based lesion in the lingula on image #139 measures 2.6 cm. There are greater than 20 additional subcentimeter pulmonary nodules scattered throughout both lungs. The trachea and central airways are clear. Elevation of the right hemidiaphragm is similar to previous. Mediastinum: There is mediastinal lymphadenopathy. A prevascular amy aggregate on image #186 measures 3.9 x 2.3 cm. A node just above the esophageal hiatus on image #95 measures 1.6 x 1.7 cm. Yaquelin: There is bulky bilateral hilar adenopathy. A right hilar node on image #167 measures 2.6 x 1.9 cm and a left hilar node on image #161 measures 3.3 x 1.7 cm. Axillae: There are shotty axillary nodes. Upper abdomen: The liver is cirrhotic in morphology and heterogeneous in attenuation. A large heterogeneous an ill-defined low-attenuation or lesions is suggested in the right lobe. The spleen is enlarged measuring 15.6 cm in length. There is a small hiatal hernia. A left cardiophrenic lymph node measures 3.5 x 2.3 cm. Upper abdominal lymphadenopathy is partially imaged. A gastrohepatic node on image #46 measures 1.6 x 1.3 cm. A retrocrural node on image #63 measures 2.1 x 1.6 cm. Skeletal structures: The skeletal structures are osteopenic. There is evidence of multifocal osteolytic metastatic disease. An osteolytic lesion in the body of the sternum is seen on image #113 with associated pathologic fracture. There are rib lesions with associated pathologic fractures (right posterior 7th rib image #127, left posterior 10th rib image #51). There are minimal superior endplate compression deformities of T5, T6, T7. There is an acute to subacute appearing compression fracture of T11 with moderate to severe loss of height and retropulsed fragments. This is likely pathologic. IMPRESSION: 1. There is no evidence of pulmonary embolus in the main, lobar, or proximal segmental pulmonary arteries. Evaluation of the peripheral branches is degraded by motion artifact. 2. There is evidence of widespread metastatic disease. There are numerous hepatic masses, mediastinal, hilar, and upper abdominal lymphadenopathy, numerous pulmonary masses and nodules, as well as osteolytic bone disease. 3. Cirrhotic liver morphology and splenomegaly. 4. Mild cardiomegaly and trace pleural effusions. 5. There are pathologic fractures of the body of the sternum, several ribs, and the T11 vertebral body. 6. Additional findings as above. ACT 112: Negative or not required by law. Electronically signed by: Per Hager M.D. 03/07/2020 7:41 AM Dictated: 03/07/20 0725Transcribed: 03/07/20 0725
[2020-03-08] MEDS ORDERED: CYANOCOBALAMIN 500 MCG TABLET (VITAMIN B-12) PO SCH (09:00)
[2020-03-08] MEDS ORDERED: CHOLECALCIFEROL 1,000 UNITS 25 MCG TAB PO SCH (09:00)
[2020-03-08] MEDS: HYDROCODONE/ACETAMOPHEN 5/325MG TAB PO PRN ×2 (09:18→15:10)
[2020-03-08] MEDS: INSULIN ASPART 100 UNITS/ML 3 ML PEN SC SCH ×4 (09:22→20:38)
[2020-03-08] MEDS: MAGNESIUM SULFATE / D5W 1 GM/100 ML BAG IV SCH ×2 (09:30→11:30)
[2020-03-08] MEDS: ENOXAPARIN INJ 30 MG/0.3 ML SYR SQ SCH (09:31)
[2020-03-08] MEDS: cefTRIAXone SODIUM 2,000 MG/70 ML BAG IV SCH (09:35)
--- NOTE | 2020-03-08 12:18 | Communication Note ---
Date of Service: March 08, 2020 pt admitted with confusion , dehydration recently diagnosed ( approx 2 weeks back ) with primary hepatocellular CA with widespread mets to lungs , bones had a CT abdomen /pelvis done at [facility] ,noted to have multiple liver mass was seen for initial consult with Heme onc Dr Lopes 2 days back in clinic very poor prognosis with wide spread metastatic CA , stage 4 on dx pt is already significantly deconditioned , with elevated INR , bilirubin showing progressive liver failure not a candidate for Chemo tx , palliative radiation for bone mets will cause pt to decline fast ( liver failure ) than benefit discussed with Heme onc Dr Lopes , recommends Pain management for cancer pain -pt is very sensitive for narcotic meds ( due to liver mets ) became obtunded with low dose Pain management consult appreciated referral made to Palliative care with [facility] had a long discussion with Dr Morales Pickering , she spoke with as initial consult as pt just got the diagnosis and still hoping for treatment , wants to have discussion with Pt regarding goals of care we will continue to talk with pt and and family to provide support plan is to return home with home health -preferable [facility] home health which can transition to home hospice when appropriate pt is DNR/DNI Meena Wong MD
[2020-03-08] MEDS ORDERED: GABAPENTIN 300 MG CAP PO SCH (21:00)
--- NOTE | 2020-03-08 21:03 | Communication Note ---
Date of Service: March 08, 2020 Follow up visit for dehydration , altered mental status /metastatic malignancy : doing well today reports of pain on chest wall and back has improved after pain medications adjusted by Pain management team no fever or chills no confusion very pleasant , conversing appropriately hoping to be discharged home in am Physical exam : no sign of distress , comfortable HEENT ; mildly icteric sclera lungs : clear to auscultate heart : regular heart sound, no lower ext edema Abdomen : soft , non tender Ext ; normal strength neuro: no focal deficit Psych : alert , awake oriented x 3 Assessment and Plan : metastatic Malignancy /possible Primary Hepatocellular CA with mets to lungs , bone , spine : hx of incresing back pain , chest pain , upper abdominal discomfort for about 2- 3 week, poor appetite with significant wt loss 30lb in past 6 months -recently diagnosed -on 02/16/2020: CT chest and abdomen pelvis with contrast - done in [facility] showing large 19 cm liver mass with underlying cirrhosis of liver , possibly of primary hepatocellular carcinoma with metastatic disease involving both lungs ( bilateral lung nodules ) Mediastinal involvement , intrathoracic and upper abdominal lymphadenopathy acute pathologic fracture of T10 possible due to bone mets pt was seen at Hematology /oncology clinic with Dr Savage Lopes on 03/06/20 : repeat CT chest /abdomen /pelvis on 03/01/20 : widespread mets of liver - paraesophageal lymph nodes , upper abdomen ret roperitoneal lymph nodes measuring up to 1-2 cm innumerable bilateral lung nodes largest t3.2 cm/3.5 cm on left lower lobe 1.7 cm lesion on left femoral head mets to T12 /left post 10th rib -causing fx -compression Fx of T11 , mets to T 7-T 4 -right portal venous tumor thrombus over all prognosis extremely poor not a candidate for Chemo or radiation tx [facility] palliative care consulted Dr Nielsen Pallative care had detail D/w Pt's and Daughter regarding goals of care with progression of cancer , life expectancy few weeks to months . Family aware and wants pt to return home , goal of care will to be address symptoms of pain and discomfort ( please refer to prior documentation ) would like to let patient know about the extent of disease and prognosis in person when he comes home We will request pt's family wish , plan for pain control for metastatic Ca pt will need hospital bed at home for frequent change of position ,keep head of bed elevated -which can not be done in a regular bed . pt is DNR/DNI plan to dc home tomorrow UTI : on IV rocephin follow culture will change to PO abx on dischage
--- NOTE | 2020-03-09 08:08 | Communication Note ---
Date of Service: March 09, 2020 planning to discharge patient home with [facility] home health today which will be transition to hospice care on 03/12/2020 under palliative care team Dr. Nielsen Prescription given for hospital bed. Indication for hospital bed: patient has advanced metastatic hepatocellular carcinoma with widespread mets to bones including causing a compression fracture of thoracic spine, ribs, hip joint Requires repositioning of the body in ways not feasible with an ordinary bed / will cause intractable pain and discomfort-with an ordinary bed Plan to discharge home with [facility] health and transition to hospice. We will ask case management to touch base with family members if pt requires any other medical equipment Meena Wong MD
[2020-03-09] MEDS: INSULIN ASPART 100 UNITS/ML 3 ML PEN SC SCH ×2 (08:09→12:35)
--- NOTE | 2020-03-09 08:57 | Pain Management Progress Note ---
Date of Service March 09, 2020 Assessment & Plan (1) Metastatic disease: Area of secondary neoplastic involvement: unspecified site Qualified Code(s): C79.9 - Secondary malignant neoplasm of unspecified site (2) Pathologic rib fracture: (3) Pathologic sternal fracture: (4) Pathologic compression fracture of thoracic vertebra: (5) Chest wall pain: (6) UTI (urinary tract infection): * Patient has multiple pathologic fractures involving sternum, right posterior seventh rib, left posterior 10th rib, T11 vertebral body as well as minimal superior endplate compression deformities at T5, T6 and T7. Patient has new diagnosis of metastatic cancer of unknown primary. These findings are likely explaining his current pain complaints at this time, which was discussed with the patient. Palliative care likely to be involved upon discharge per attending note. * Recommend continuing with hydrocodone 5/325 mg 1 tablet p.o. every 6 hours as needed for breakthrough pain to assess efficacy/tolerability * Continue to progress gabapentin 300 mg to 3 times daily over the next 3 days * Patient is not currently a candidate for interventional treatment due to active UTI * Consider addition of stool softener with ongoing use of hydrocodone * Will sign off on patient at this time. Please contact pain service for reevaluation as needed. Thank you for allowing us to participate in the care of Mr. Cody Urinary tract infection type: site unspecified Hematuria presence: without hematuria Qualified Code(s): N39.0 - Urinary tract infection, site not specified Admission and Anticipated Discharge Date Admission Date: March 07, 2020 Subjective Mr. Cody was reevaluated regarding difficulties with pain in the bilateral anterior chest wall and thoracic spine relating to pathologic rib fracture, pathologic sternal fracture and pathologic vertebral compression fractures. Patient was initiated on hydrocodone and gabapentin yesterday which he reportedly tolerated without notable side effects. His pain has been less severe over the past 24 hours. The patient reports increased discomfort with out of bed activities in the inframammary chest wall region bilaterally and equal. He reported poor sleep due to his roommate, not relating his poor sleep to poor pain control. Patient reported no apparent cognitive side effects from the hydrocodone or gabapentin use per his report. He reports his pain is minimal at a 3-4/10 at this time in the supine position while he is still. He reports no further constitutional complaints. Plan of care discussed with Dr. Stephanie Staples. Physical Exam Physical Exam: General: Patient was lying quietly sleeping upon entering the room. He was awakened. He reported no acute distress and appeared to be in no acute distress. Speech and thought process was appropriate. His cognition appeared to be intact. Chest: Patient is moderately tender along the inframammary chest wall and the lateral and anterior region slightly accentuated with AP and lateral compression. Neurologic: Cranial nerves grossly intact.
[2020-03-09] MEDS ORDERED: POLYETHYLENE (MIRALAX) 17 GM PACK PO SCH (09:00)
[2020-03-09] MEDS ORDERED: DOCUSATE SODIUM 100 MG CAP PO SCH (09:00)
[2020-03-09] MEDS ORDERED: GABAPENTIN 300 MG CAP PO SCH (09:00)
[2020-03-09] MEDS ORDERED: CEFTRIAXONE SODIUM IV SCH (09:00)
[2020-03-09] MEDS ORDERED: DEXTROSE IV SCH (09:00)
[2020-03-09] MEDS: ENOXAPARIN INJ 30 MG/0.3 ML SYR SQ SCH (10:41)
--- NOTE | 2020-03-09 14:17 | Discharge Summary ---
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 there is evidence of widespread metastatic disease. There are numerous hepatic masses, mediastinal, hilar, and upper abdominal lymphadenopathy, numer ous pulmonary masses and nodules, as well as osteolytic bone disease. 2 . There are pathologic fractures of the body of the sternum, several ribs, and the T11 vertebral body. UA positive , during my time of interview , pt was awake and alert , does not recall the events prior to ER aware that he is in hospital , complains of pain on chest wall and bilateral ribs , pain is worse while taking deep breath and Daughter present at bedside -able to provide history Principal Diagnosis METASTATIC LIVER CANCER WITH METASTASIS TO LUNGS , BONES CANCER RELATED PAIN HOME WITH HOSPICE CARE Discharge Exam Constitutional WD/WN, vitals as above ENMT external ear and nose normal, oropharynx normal Neck trachea midline, no thyromegaly Respiratory normal respiratory effort, lungs clear to auscultation Cardiovascular RRR, no murmur, no edema Gastrointestinal (Abdomen) normal bowel sounds, soft, nontender, no hepatosplenomegaly Skin no rashes, warm and dry Neurologic PERRL, EOMI, accommodation nl, no face palsy, no dysarthria Psychiatric A+Ox3, euthymic affect Discharge Data Allergies Allergy/AdvReac Type Severity Reaction Status Date / Time No Known Allergies Allergy Verified 03/07/20 04:55 Consultations 03/07/20 07:41 ED Decision to Admit Stat 03/07/20 08:00 Consult Case Management - Discharge Planning Routine 03/07/20 10:14 Consult Pain Management Routine Ordered Studies 03/07/20 04:41 CT angio chest PE protocol Urgent 03/07/20 04:48 CT head/brain wo con Urgent Diabetes Follow up Diabetes Follow-up Needed for HgbA1c >9% Hospital Course (1) Metastatic disease: metastatic Malignancy /possible Primary Hepatocellular CA with mets to lungs , bone , spine : hx of incresing back pain , chest pain , upper abdominal discomfort for about 2- 3 week, poor appetite with significant wt loss 30lb in past 6 months -recently diagnosed -on 02/16/2020: CT chest and abdomen pelvis with contrast - done in [facility] pt was seen at Hematology /oncology clinic with Dr Savage Lopes on 03/06/20 : CT chest /abdomen /pelvis on 03/01/20 : widespread mets of liver - paraesophageal lymph nodes , upper abdomen retroperitoneal lymph nodes measuring up to 1-2 cm innumerable bilateral lung nodes largest t3.2 cm/3.5 cm on left lower lobe 1.7 cm lesion on left femoral head mets to T12 /left post 10th rib -causing fx -compression Fx of T11 , mets to T 7-T 4 -right portal venous tumor thrombus over all prognosis extremely poor not a candidate for Chemo or radiation tx Family aware of poor prognosis, plan to return home with hospice care today (2) Pathologic compression fracture of thoracic vertebra: due to above cont pain control Appreciate input from pain management, patient started with as needed hydrocodone, added Neurontin 300 mg 3 times daily. Improvement of pain symptoms noted today, Patient feels much better, pain 3/10, will get sharp pain while taking deep breath but much better since admission. Patient will be discharged home with hospice, May benefit with liquid morphine/Roxanol, fentanyl patch for cancer related bone pain, hospice will continue to follow-up for pain and symptom control. (3) Confusion: presented with lethargy , confusion mental status improved to baseline possible metabolic encephalopathy with dehydration , UTI , metastatic liver ca with hyperbilirubinemia , recent narcotic pain meds CT head no acute change Urine culture grows more than 3 type organism, possible contaminated specimen We was grossly abnormal, patient was treated with IV Rocephin, will be discharged with p.o. Cipro for 5 days (4) UTI (urinary tract infection): Discharged on p.o. Cipro for 5 days DNR/DNI Disposition Discharged home with [facility] hospice today Total Time Total Time Spent Total Time Spent (In Minutes): 35 minutes Total Time Includes: Examination of the Patient, Discharge Planning, Medication Reconciliation and Communication With Other Providers Discharge Plan Discharge Items Patient Disposition: Hospice - Home Reason For Visit: SOB,CONFUSION,WEAKNESS Discharge Diagnosis: METASTATIC LIVER CANCER WITH METASTASIS TO LUNGS , BONES CANCER RELATED PAIN HOME WITH HOSPICE CARE Activity: As commented below Activity Comment: TOLERATED Non-emergency contact: Primary Care Provider Call non-emergency contact if: you have any medication questions Follow-up/Referrals: Brandon Dennison MD [Outside Practitioners] - (Date & Time 03/14/2020 2:40 PM Provider Brandon Dennison MD Department Family Practice [facility] ) Serena Robbins MD [Outside Practitioners] - 03/12/20 9:30 am (Date & Time 03/12/2020 9:30 AM Provider Serena Robbins MD Department Palliative Medicine, [facility] ) Diet: Regular Addtl Attending Provider Instructions: FOLLOW UP WITH HOSPICE CARE AT HOME PLEASE TAKE STOOL SOFTENER -MIRALAX, COLACE , SENNA ,DULCOLAX -TO PREVENT CONSTIPATION DUE TO PAIN MEDICATIONS ANTIBIOTIC : Ciprofloxacin 250 mg -1 tablet twice daily for 5 days -for Urinary tract infection please utilize over the counter Probiotics twice daily while taking antibiotic to prevent diarrhea /loose stool Pending Studies at Discharge: No Stand-Alone Forms: [facility] Medications and DC Order Prescriptions: New polyethylene glycol 3350 [Miralax] 17 gram Powder In Packet 17 g PO DAILY Qty: 0 RF: 0 codeine-guaifenesin 10-100 mg/5 mL Liquid 10 ml PO Q6H PRN (Reason: COUGH) 30 Days Qty: 237 RF: 0 hydrocodone-acetaminophen [[place]] 5-325 mg Tablet 1 tab PO Q6H PRN (Reason: PAIN) Qty: 60 RF: 0 docusate sodium 100 mg Capsule 100 mg PO BID Qty: 0 RF: 0 gabapentin 300 mg Capsule 300 mg PO TID 30 Days Qty: 90 RF: 0 ciprofloxacin HCl [Cipro] 250 mg tablet 250 mg PO BID 5 Days Qty: 10 RF: 0 Continued cyanocobalamin (vitamin B-12) [Vitamin B-12] 1,000 mcg Tablet 1,000 mcg PO DAILY RF: 0 cholecalciferol (vitamin D3) [Vitamin D3] 50 mcg (2,000 unit) Tablet 50 mcg PO DAILY RF: 0 Discontinued glipizide 10 mg Tablet 10 mg PO BID Qty: 180 RF: 0 aspirin [Aspirin Low Dose] 81 mg Tablet,Delayed Release (Dr/Ec) 325 mg PO BID RF: 0 lisinopril 20 mg tablet 20 mg PO DAILY RF: 0 tramadol 50 mg tablet 50 mg PO Q8 PRN (Reason: Pain) RF: 0 Discharge Orders: Discharge Order (Routine); Ordered 03/09/20 Ordered By: Meena Sawyer/Other Patient Handouts: Hospice The Importance of ..., Hospice: As Nears Admission Data Admit Date/Time: 03/07/20 07:57 Attending Provider: Meena Wong Admit Provider: Meena Wong Primary Care Provider: PCP,NO Other Providers: Mark Anthony Posey ; Stephanie Staples ; [facility],Home Healthcare
--- NOTE | 2020-03-09 14:36 | Communication Note ---
Date of Service: March 09, 2020 Spoke with patient's and daughter Tere on phone , hospital bed delivered already, Patient's new pain medications hydrocodone, sent to his pharmacy at [facility], information given for bowel regimen/stool softeners to prevent narcotic induced constipation. Patient is already established with [facility] hospice, Discharged on as needed hydrocodone, Neurontin 300 mg 3 times daily as recommended by pain management team, pt reports improvement of pain currently 34/10 Family updated, patient may need more pain medication as disease progresses, hospice will be able to utilize as needed Roxanol/liquid morphine, and fentanyl patch for symptom control Update given in detail, all questions answered. 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
[2020-03-10] MEDS ORDERED: GABAPENTIN 300 MG CAP PO SCH (09:00)
== END 2020-03-09 15:42 | disposition hospice, home (50) | DRG 542 ==
LOC: ED 04:32 → 2N 07:57